=== PATIENT | female | born 1950 | race Caucasian/White ===

== ENCOUNTER 2018-12-12 13:54 | Observation (INO) | payer MEDICARE, OTHER ==
[~2018-12-12] VITALS: Ht 167.6 cm; Wt 81.6 kg
[2018-12-12] MEDS ORDERED: SODIUM CHLORIDE 0.9% 1000ML 1,000 ML IV STA (14:14)
--- NOTE | 2018-12-12 14:45 | NUR ---
Dr. Marin and Regional Director Of Admissions at bedside for rosenberg insertion of the j peg site. Addendum: 12/12/18 at 1735 by KARYE Attempt unsuccessful.
[2018-12-12] MEDS ORDERED: LIDOCAINE HCL 2% JELLY 5 ML TUBE ONE (14:54)
--- NOTE | 2018-12-12 15:16 | NUR ---
Respiratory at bedside.
[2018-12-12] MEDS ORDERED: IPRAT-ALBUT 0.5-3 ML INH (15:34)
[2018-12-12] MEDS ORDERED: ENULOSE10 GM/15 M JT (15:34)
[2018-12-12] MEDS ORDERED: LIOTHYRONINE SO5 MCG JT (15:34)
[2018-12-12] MEDS ORDERED: BRIMONIDINE TART5 ML OP (15:34)
[2018-12-12] MEDS ORDERED: KLONOPIN1 MG JT (15:34)
[2018-12-12] MEDS ORDERED: ZOFRAN4 MG/5 ML JT (15:34)
[2018-12-12] MEDS ORDERED: BACLOFEN10 MG JT (15:34)
[2018-12-12] MEDS ORDERED: ZINC OXIDE56.7 GM TOP (15:34)
[2018-12-12] MEDS ORDERED: LEXAPRO10 MG JT (15:34)
[2018-12-12] MEDS ORDERED: SYNTHROID125 MCG JT (15:34)
[2018-12-12] MEDS ORDERED: FUROSEMIDE40 MG JT (15:34)
[2018-12-12] MEDS ORDERED: ACIDOPHILUS1 EAC4 JT (15:34)
[2018-12-12] MEDS ORDERED: MEGESTROL400 MG/10 JT (15:34)
[2018-12-12] MEDS ORDERED: LANTUS 3ML100 UNITS/ SC (15:34)
[2018-12-12] MEDS ORDERED: BUPROPION HCL100 MG JT (15:34)
[2018-12-12] MEDS ORDERED: GUAIFENESI100 MG/5 M JT (15:34)
[2018-12-12] MEDS ORDERED: GABAPENTIN100 MG JT (15:34)
[2018-12-12] MEDS ORDERED: ACETAMINOPHEN325 M1 JT (15:34)
[2018-12-12] MEDS ORDERED: LATANOPROST2.5 ML OP (15:34)
[2018-12-12] MEDS ORDERED: MIRALAX17 GM JT (15:34)
[2018-12-12] MEDS ORDERED: HUMALOG100 UNIT/3 SQ (15:34)
[2018-12-12] MEDS ORDERED: COLACE100 MG/10 JT (15:34)
[2018-12-12] MEDS ORDERED: NEPHRO-VITE TABL1 EA JT (15:34)
[2018-12-12] MEDS ORDERED: THIAMINE HCL JT (15:34)
[2018-12-12] MEDS ORDERED: FAMOTIDINE20 MG JT (15:34)
[2018-12-12] MEDS ORDERED: LOPERAMIDE1 MG/5 ML JT (15:34)
[2018-12-12] MEDS ORDERED: ZOFRAN4 MG PO (15:34)
[2018-12-12] MEDS ORDERED: SEROQUEL100 MG JT (15:34)
[2018-12-12] MEDS ORDERED: NORCO 10-325 T1 EACH JT (15:34)
[2018-12-12] MEDS ORDERED: EFFER-K 20 MEQ20 MEQ JT (15:34)
[2018-12-12] MEDS ORDERED: ACETYLCYST100 MG/1 M INH (15:34)
[2018-12-12] MEDS ORDERED: POLYETHYLENE GL17 GM JT (15:34)
--- NOTE | 2018-12-12 15:37 | NUR ---
Pt is noted to be resting in bed with eyes closed at this time.
--- OUTSIDE RECORDS SUMMARY | 2018-12-12 15:46 | XMS REPORT | CCD ---
Author Author Auto Generated Organization [facility] Address Unknown Phone Unavailable Care Team Providers Care Release Engineer Name Role Phone Iveth Villalobos CP Allergies, Adverse Reactions, Alerts Substance Reaction Status sulfa drugs Active Problem List Condition Effective Dates Status Diabetes mellitus Active Hypertension Active Irritable bowel syndrome Active Medications Medication Instructions Start Date End Date Status Lyrica Substitution Allowed 06/29/2013 Ordered amLODipine Substitution Allowed 06/29/2013 Ordered normal saline 0.9% 1,000 mL, Rate: 1000 ml/hr, Infuse 06/29/2013 06/29/2013 Completed IV 1,000 mL over: 1 hr, Route: IV, Dosing Weight 70.455 kg, Total Volume: 1,000, Start date: 06/29/13 15:20:00, Duration: 1 doses or times, Stop date: 06/29/13 16:19:00 Alphagan P 0.1% Substitute Allowed 06/29/2013 Ordered ophthalmic solution pantoprazole Substitution Allowed 06/29/2013 Ordered metFORmin Substitution Allowed 06/29/2013 Ordered Januvia Substitution Allowed 06/29/2013 Ordered Crestor Substitution Allowed 06/29/2013 Ordered losartan Substitution Allowed 06/29/2013 Ordered levothyroxine Substitution Allowed 06/29/2013 Ordered hydrochlorothiazide Substitution Allowed 06/29/2013 Ordered glimepiride Substitution Allowed 06/29/2013 Ordered Vital Signs Most recent to oldest [Reference Range]: 1 2 3 Height 149.86 cm (06/29/2013 12:06:00) Temperature Oral [96.4-99.1 DegF] 97.1 DegF (06/29/2013 18:52:00) 96.5 DegF (06/29/2013 12:06:00) Systolic Blood Pressure [90-140 mmHg] 151 mmHg *HI* (06/29/2013 18:52:00) 161 mmHg *HI* (06/29/2013 16:16:00) 148 mmHg *HI* (06/29/2013 12:06:00) Diastolic Blood Pressure [60-90 mmHg] 86 mmHg (06/29/2013 18:52:00) 90 mmHg (06/29/2013 16:16:00) 68 mmHg (06/29/2013 12:06:00) Respiratory Rate [14-20 BRMIN] 19 BRMIN (06/29/2013 18:52:00) 18 BRMIN (06/29/2013 16:16:00) 20 BRMIN (06/29/2013 12:06:00) Peripheral Pulse Rate [60-100 bpm] 84 bpm (06/29/2013 18:52:00) 84 bpm (06/29/2013 16:16:00) 65 bpm (06/29/2013 12:06:00) Weight 70.455 kg (06/29/2013 12:06:00) Results BEDSIDE GLUCOSE TESTING Most recent to oldest [Reference Range]: 1 Gluc POC Lifscn [70-99 mg/dL] 122 mg/dL 1 *HI* (06/29/2013 11:58:00) 1Interpretive Data: Upper Reportable Limit: 200 mg/dL. URINALYSIS Most recent to oldest [Reference Range]: 1 UA Turbidity [Clear] Slight *ABN* (06/29/2013 17:01:07) UA Color [Yellow] Dark Yellow *NA* (06/29/2013 17:01:07) UA pH [5.0-8.0] 5.5 (06/29/2013 17:01:07) UA Spec Grav [<=1.030] 1.016 (06/29/2013 17:01:07) UA Glucose [Negative mg/dL] Negative mg/dL *NA* (06/29/2013 17:01:07) UA Blood [Negative] Negative (06/29/2013 17:01:07) UA Ketones [Negative mg/dL] Negative mg/dL *NA* (06/29/2013 17:01:07) UA Protein [Negative mg/dL] 20 mg/dL *ABN* (06/29/2013 17:01:07) UA Urobilinogen [0.1-1.0 mg/dL] <=1.0 mg/dL *NA* (06/29/2013 17:01:07) UA Bili [Negative] Negative *NA* (06/29/2013 17:01:07) UA Leuk Est [Negative] Negative (06/29/2013 17:01:07) UA Nitrite [Negative] Negative (06/29/2013 17:01:07) UA WBC [0-5 /HPF] 1 /HPF (06/29/2013 17:01:07) UA Bacteria [None Seen /HPF] Few /HPF *NA* (06/29/2013 17:01:07) UA Sq Epi [Few /LPF] Many /LPF *ABN* (06/29/2013 17:01:07) UA Hyal Cast [0-2 /LPF] 4 /LPF *HI* (06/29/2013 17:01:07) UA Amorph Promise [None Seen /HPF] Occasional /HPF *NA* (06/29/2013 17:01:07) UA Mucus [None Seen /LPF] Few /LPF *NA* (06/29/2013 17:01:07) CHEMISTRY Most recent to oldest [Reference Range]: 1 Sodium Lvl [135-145 mEq/L] 141 mEq/L (06/29/2013 14:10:00) Potassium Lvl [3.5-5.1 mEq/L] 3.4 mEq/L *LOW* (06/29/2013 14:10:00) Chloride Lvl [95-109 mEq/L] 97 mEq/L (06/29/2013 14:10:00) CO2 [24-32 mEq/L] 31 mEq/L (06/29/2013 14:10:00) AGAP [10.0-20.0 mEq/L] 16.4 mEq/L (06/29/2013 14:10:00) Creatinine Lvl [0.5-1.4 mg/dL] 1.0 mg/dL (06/29/2013 14:10:00) eGFR 60 mL/min/1.73m2 2 *NA* (06/29/2013 14:10:00) BUN [7-22 mg/dL] 19 mg/dL (06/29/2013 14:10:00) B/C Ratio [6-25] 19 (06/29/2013 14:10:00) Glucose Lvl [70-99 mg/dL] 113 mg/dL 3 *HI* (06/29/2013) Total Protein [6.4-8.4 g/dL] 7.7 g/dL (06/29/2013) Albumin Lvl [3.5-5.0 g/dL] 4.1 g/dL (06/29/2013) Globulin [2.0-4.0 g/dL] 3.6 g/dL (06/29/2013) A/G Ratio [0.7-1.6] 1.1 (06/29/2013) Calcium Lvl [8.5-10.5 mg/dL] 10.2 mg/dL (06/29/2013) ALT [0-65 unit/L] 19 unit/L (06/29/2013) AST [0-37 unit/L] 13 unit/L (06/29/2013) Alk Phos [39-136 unit/L] 76 unit/L (06/29/2013) Bili Total [0.2-1.3 mg/dL] 0.5 mg/dL (06/29/2013) Total CK [12-191 unit/L] 65 unit/L (06/29/2013) CK MB [0.5-3.6 ng/mL] 0.5 ng/mL (06/29/2013) CK MB Index [0.0-2.5] 0.8 (06/29/2013) Troponin-I [0.00-0.40 ng/mL] <0.02 ng/mL (06/29/2013) 2Result Comment: The eGFR is calculated using the CKD-EPI formula. In most young, healthy individuals the eGFR will be >90 mL/min/1.73m2. The eGFR declines with age. An eGFR of 60-89 may be normal in some populations, particularly the elderly, for whom the CKD-EPI formula has not been extensively validated. Use of the eGFR is not recommended in the following populations: Individuals with unstable creatinine concentrations, including patients and those with serious co-morbid conditions. Patients with extremes in muscle mass or diet. The data above are obtained from the National Kid[employer] Disease Education Program ( NKDEP) which additionally recommends that when the eGFR is used in patients with extremes of body mass index for purposes of drug dosing, the eGFR should be mul tiplied by the estimated BMI. 3Interpretive Data: Adult reference range values reflect the clinical guidelines of the [place] [employer]. HEMATOLOGY Most recent to oldest [Reference Range]: 1 WBC [3.7-10.4 K/CMM] 13.2 K/CMM *HI* (06/29/2013) RBC [4.20-5.40 M/CMM] 4.71 M/CMM (06/29/2013) Hgb [12.0-16.0 g/dL] 14.2 g/dL (06/29/2013) Hct [36.0-48.0 %] 42.6 % (06/29/2013) MCV [81.0-99.0 fL] 90.4 fL (06/29/2013) MCH [27.0-31.0 pg] 30.1 pg (06/29/2013) MCHC [32.0-36.0 g/dL] 33.3 g/dL (06/29/2013) RDW [11.5-14.5 %] 14.2 % (06/29/2013) Platelet [133-450 K/CMM] 273 K/CMM (06/29/2013) MPV [7.4-10.4 fL] 9.8 fL (06/29/2013) Segs [45.0-75.0 %] 83.6 % *HI* (06/29/2013) Lymphocytes [20.0-40.0 %] 10.1 % *LOW* (06/29/2013) Monocytes [2.0-12.0 %] 5.8 % (06/29/2013 14:10:00) Eosinophils [0.0-4.0 %] 0.3 % (06/29/2013:10:) Basophils [0.0-1.0 %] 0.2 % (06/29/2013:) Segs-Bands # [1.5-8.1 K/CMM] 11.0 K/CMM *HI* (06/29/201310:) Lymphocytes # [1.0-5.5 K/CMM] 1.3 K/CMM (06/29/2013:10:) Monocytes # [0.0-0.8 K/CMM] 0.8 K/CMM (06/29/201310:) Eosinophils # [0.0-0.5 K/CMM] 0.0 K/CMM (06/29/201310:) Basophils # [0.0-0.2 K/CMM] 0.0 K/CMM (06/29/2013:10:) PT [12.0-14.7 seconds] 12.2 seconds (06/29/2013::) INR [0.85-1.17] 0.91 4 (06/29/2013::) PTT [22.9-35.8 seconds] 30.3 seconds 5 (06/29/2013::) 4Interpretive Data: RECOMMENDED RANGES FOR PROTIME INR: 2.0-3.0 for most medical and surgical thromboembolic states. 2.5-3.5 for artificial heart valves and recurrent embolism. INR SHOULD BE USED ONLY FOR PATIENTS ON STABLE ANTICOAGULANT THERAPY. 5Interpretive Data: Heparin Therapeutic Range: 57 - 92 Seconds Procedures Procedures Date Related Diagnosis Abdominal hysterectomy Cholecystectomy
--- OUTSIDE RECORDS SUMMARY | 2018-12-12 15:46 | XMS REPORT | Summary of Care ---
Author Author [facility] Organization [facility] Address Unknown Phone Unavailable Encounter JESUS Driscoll(ANTHONY) [id number] Date(s): 03/10/16 - 03/12/16 [facility] [address] [employer] provided by [employer] [place] [facility] [place] [address]- Discharge Disposition: Home Attending Physician: Megha Daniel MD Admitting Physician: Megha Daniel MD Vital Signs 1 2 3 Most recent to oldest [Reference Range]: 152.4 cm (03/10/16 10:43 PM) Height 98.8 DegF (03/12/16 4:00 AM) Temperature Oral [96.4-99.1 DegF] 135/62 mmHg (03/12/16 11:00 AM) 146/63 mmHg *HI* (03/12/16 10:00 AM) 133/60 mmHg (03/12/16 9:00 AM) Blood Pressure [90-140/60-90 mmHg] 20 BRMIN (03/12/16 11:00 AM) 20 BRMIN (03/12/16 10:00 AM) 19 BRMIN (03/12/16 9:00 AM) Respiratory Rate [14-20 BRMIN] 75.909 kg (03/10/16 10:43 PM) Weight 32.68 m2 (03/10/16 10:43 PM) Body Mass Index Problem List Condition Effective Dates Status Health Status Informant Diabetes Active mellitus(Confirmed) Hypertension(Confirm Active ed) Hyperthyroidism(Conf Resolved irmed) Irritable bowel Active syndrome(Confirmed) Allergies, Adverse Reactions, Alerts Substance Reaction Severity Status sulfa drugs Active Medications acyclovir + Sodium Chloride 0.9% IV 100 mL 460 mg, Route: IVPB, ABXQ8H, Dosing Weight 75.909, kg, Priority: NOW, Start date : 03/11/16 11:08:00 CDT, Duration: 30 day, Stop date: 04/10/16 3:08:00 CDT, CrCl > 50 mL / min Notes: (Same as: Zovirax) MEDICATION WASTE Product Size: 500 mgProduct Wasted: ___ mg Start Date: 03/11/16 Stop Date: 03/12/16 Status: Discontinued acyclovir + Sodium Chloride 0.9% IV 100 mL 460 mg, Route: IVPB, ABXQ8H, Dosing Weight 75.909, kg, Priority: NOW, Start date : 03/11/16 9:37:00 CDT, Duration: 30 day, Stop date: 04/10/16 1:37:00 CDT, CrCl > 50 mL / min Notes: (Same as: Zovirax) MEDICATION WASTE Product Size: 500 mgProduct Wasted: ___ mg Start Date: 03/11/16 Stop Date: 03/11/16 Status: Deleted amLODIPine 10 mg, 1 tab, Route: PO, Drug form: TAB, Daily, Dosing Weight 75.909, kg, Start date: 03/12/16 9:00:00 CDT, Duration: 30 day, Stop date: 04/10/16 9:00:00 CDT Notes: (Same as: Norvasc) Start Date: 03/12/16 Stop Date: 03/12/16 Status: Discontinued amLODIPine 10 mg oral tablet 10 mg=1 tab, PO, Daily, 0 Refill(s) Start Date: 03/12/16 Status: Ordered aspirin 300 mg, 1 supp, Route: DC, Drug form: SUPP, Daily, Dosing Weight 75.909, kg, PRN For Temp > 100.4 F, Start date: 03/11/16 5:25:00 CDT, Duration: 30 day, Stop date: 04/10/16 5:24:00 CDT Notes: Refrigerate. Start Date: 03/11/16 Stop Date: 03/12/16 Status: Discontinued aspirin 325 mg tablet, enteric coated 325 mg, 1 tab, Route: PO, Drug form: ECTAB, Daily, Dosing Weight 75.909, kg, Sta rt date: 03/11/16 0:00:00 CDT, Duration: 30 day, Stop date: 04/09/16 9:00:00 CDT Notes: (Do Not Crush) Do not crush or chew. Start Date: 03/11/16 Stop Date: 03/12/16 Status: Discontinued Ativan 0.5 mg, 0.25 mL, Route: IV, Drug form: INJ, ONCE, Dosing Weight 75.909, kg, PRN as needed for anxiety, Start date: 03/11/16 14:23:00 CDT, Stop date: 04/10/16 14 :22:00 CDT Notes: (Same as: Ativan) Start Date: 03/11/16 Stop Date: 03/11/16 Status: Completed Ativan 1 mg, Route: IVP, Drug form: INJ, ONCE, Dosing Weight 75.909, kg, PRN Procedure, Start date: 03/11/16 2:30:00 CDT Start Date: 03/11/16 Stop Date: 03/11/16 Status: Completed Ativan 2 mg, Route: IVP, Drug form: INJ, ONCE, Dosing Weight 75.909, kg, PRN Procedure, Start date: 03/11/16 2:29:00 CDT Start Date: 03/11/16 Stop Date: 03/11/16 Status: Discontinued atorvastatin 80 mg, 1 tab, Route: PO, Drug form: TAB, Bedtime, Dosing Weight 75.909, kg, Star t date: 03/11/16 21:00:00 CDT, Duration: 30 day, Stop date: 04/09/16 21:00:00 CD T Notes: Same as Lipitor Start Date: 03/11/16 Stop Date: 03/12/16 Status: Discontinued atorvastatin 80 mg oral tablet 80 mg=1 tab, PO, Bedtime, 0 Refill(s) Start Date: 03/12/16 Status: Ordered buPROPion 100 mg oral tablet 100 mg=1 tab, PO, Daily Start Date: 03/12/16 Status: Ordered Cosopt ophthalmic solution 1 drp, Route: BOTH EYES, BID, Drug form: SOLN, Start date: 03/12/16 9:00:00 CDT, Stop date: 04/10/16 17:00:00 CDT Notes: (Same as: Cosopt) Start Date: 03/12/16 Stop Date: 03/12/16 Status: Discontinued escitalopram 20 mg oral tablet 20 mg=1 tab, PO, Daily Start Date: 03/12/16 Status: Ordered gabapentin 300 mg oral capsule 300 mg, 1 cap, Route: PO, Drug form: CAP, Q12H, Dosing Weight 75.909, kg, (CrCl 30 - 59 ml/min), Start date: 03/12/16 9:00:00 CDT, Duration: 30 day, Stop date: 04/10/16 21:00:00 CDT Notes: (Same as: Neurontin) Start Date: 03/12/16 Stop Date: 03/12/16 Status: Discontinued gabapentin 300 mg oral capsule See Instructions, 1 cap po QAM and 3 cap po QPM, 0 Refill(s) Start Date: 03/12/16 Status: Ordered glipiZIDE 5 mg oral tablet 5 mg=1 tab, PO, BID, 0 Refill(s) Start Date: 03/12/16 Status: Ordered heparin 5,000 unit, 1 mL, Route: SUB-Q, Drug form: INJ, Q8H, Dosing Weight 75.909, kg, ( For patients weighing < 100 kg)., Start date: 03/11/16 0:00:00 CDT, Duration: 30 day, Stop date: 04/09/16 16:00:00 CDT Notes: porcine heparin Start Date: 03/11/16 Stop Date: 03/12/16 Status: Discontinued hydrALAZINE 10 mg, 0.5 mL, Route: IVP, Drug form: INJ, Q6H, Dosing Weight 75.909, kg, PRN Hy pertension, Start date: 03/11/16 16:02:00 CDT, Duration: 30 day, Stop date: 03/23 16:01:00 CDT Notes: (Same as: Apresoline)Push over 5 minutes Start Date: 03/11/16 Stop Date: 03/12/16 Status: Discontinued labetalol 10 mg, 2 mL, Route: IVP, Drug form: INJ, Q10Min, Dosing Weight 75.909, kg, PRN H ypertension, For SBP > 220 mmHg and/or DBP > 120 mmHg., Start date: 03/10/16 23:30:00 CDT, Duration: 30 day, Stop date: 04/09/16 23:29:00 CDT Start Date: 03/10/16 Stop Date: 03/12/16 Status: Discontinued levothyroxine 88 microgram, 1 tab, Route: PO, Drug form: TAB, Q630AM, Dosing Weight 75.909, kg , Start date: 03/13/16 6:30:00 CDT, Duration: 30 day, Stop date: 04/11/16 6:30:0 0 CDT Notes: Take 1 hour before or 2 hours after meal; Enteral feeds may interefere wi th the absorption of this medication. (Same as:Synthroid) Start Date: 03/13/16 Stop Date: 03/12/16 Status: Canceled levothyroxine 88 mcg (0.088 mg) oral tablet 88 microgram=1 tab, PO, Q630AM, 0 Refill(s) Start Date: 03/12/16 Status: Ordered lisinopril 20 mg, Route: PO, Drug form: TAB, Daily, Dosing Weight 75.909, kg, Start date: 0 03/12/16 9:00:00 CDT, Stop date: 04/10/16 14:00:00 CDT Start Date: 03/12/16 Stop Date: 03/11/16 Status: Canceled losartan 100 mg, 2 tab, Route: PO, Drug form: TAB, Daily, Dosing Weight 75.909, kg, Start date: 03/11/16 16:00:00 CDT, Duration: 30 day, Stop date: 04/10/16 9:00:00 CDT Notes: (Same as: Mk) Start Date: 03/11/16 Stop Date: 03/12/16 Status: Discontinued losartan 50 mg oral tablet 100 mg=2 tab, PO, Daily, 0 Refill(s) Start Date: 03/12/16 Status: Ordered Lumigan 0.01% ophthalmic solution 1 drp, BOTH EYES, Bedtime Start Date: 03/12/16 Status: Ordered metFORMIN 500 mg oral tablet 500 mg=1 tab, PO, BID-Meals, # 30 tab, 0 Refill(s) Start Date: 03/12/16 Status: Ordered normal saline 0.9% IV 1000 mL 1,000 mL, Rate: 125 ml/hr, Infuse over: 8 hr, Route: IV, Dosing Weight 75.909 kg , Total Volume: 1,000, Start date: 03/11/16 7:18:00 CDT, Duration: 30 day, Stop date: 04/10/16 7:17:00 CDT Start Date: 03/11/16 Stop Date: 03/11/16 Status: Deleted Omnipaque 350mg/ml 60 mL, Route: IVP, Drug Form: SOLN, Dosing Weight 75.909, kg, ONCALL, STAT, Star t date: 03/11/16 7:44:00 CDT, Duration: 1 doses or times, Dose=2.2ml/kg, Max do ip=[id number] -- "To be infused by Radiology Staff ONLY" Start Date: 03/11/16 Stop Date: 03/11/16 Status: Completed Saline Flush 0.9% 10 ml, Route: IVP, Drug Form: INJ, Dosing Weight 75.909, kg, PRN, PRN Line Flush , Start date: 03/10/16 23:30:00 CDT, Duration: 30 day, Stop date: 04/09/16 23:29 :00 CDT Notes: Same as: BD Posiflush Sterile Start Date: 03/10/16 Stop Date: 03/12/16 Status: Discontinued Saline Flush 0.9% 10 ml, Route: IVP, Drug Form: INJ, Dosing Weight 75.909, kg, Q12H, Start date: 0 03/11/16 9:00:00 CDT, Duration: 30 day, Stop date: 04/09/16 21:00:00 CDT Notes: Same as: BD Posiflush Sterile Start Date: 03/11/16 Stop Date: 03/12/16 Status: Discontinued SEROquel 25 mg, 1 tab, Route: PO, Drug form: TAB, ONCE, Dosing Weight 75.909, kg, PRN Paola tation, Start date: 03/12/16 0:39:00 CDT, Stop date: 03/12/16 0:39:00 CDT Notes: (Same as: SEROquel) Start Date: 03/12/16 Stop Date: 03/12/16 Status: Completed Sodium Chloride 0.9% IV 1,000 mL 1,000 mL, Rate: 75 ml/hr, Infuse over: 13.3 hr, Route: IV, Dosing Weight 75.909 kg, Total Volume: 1,000, Start date: 03/10/16 23:30:00 CDT, Duration: 30 day, St op date: 04/09/16 23:29:00 CDT Start Date: 03/10/16 Stop Date: 03/12/16 Status: Discontinued sucralfate 1 g oral tablet 1 gm=1 tab, PO, QID-Before Meals, 0 Refill(s) Start Date: 03/12/16 Status: Ordered Results ELECTROLYTES 1 2 3 Most recent to oldest [Reference Range]: 140 mEq/L (03/12/16 3:57 AM) 134 mEq/L *LOW* (03/11/16 12:06 AM) Sodium Lvl [135-145 mEq/L] 3.4 mEq/L *LOW* (03/12/16 3:57 AM) 4.0 mEq/L (03/11/16 12:06 AM) Potassium Lvl [3.5-5.1 mEq/L] 103 mEq/L (03/12/16 3:57 AM) 100 mEq/L (03/11/16 12:06 AM) Chloride Lvl [95-109 mEq/L] 26 mEq/L (03/12/16 3:57 AM) 25 mEq/L (03/11/16 12:06 AM) CO2 [24-32 mEq/L] 14.4 mEq/L (03/12/16 3:57 AM) 13.0 mEq/L (03/11/16 12:06 AM) AGAP [10.0-20.0 mEq/L] CHEM PANEL 1 2 3 Most recent to oldest [Reference Range]: 0.67 mg/dL (03/12/16 3:57 AM) 0.81 mg/dL (03/11/16 12:06 AM) 0.81 mg/dL (03/11/16 12:06 AM) Creatinine Lvl [0.50-1.40 mg/dL] 91 mL/min/1.73m2 1 *NA* (03/12/16 3:57 AM) 75 mL/min/1.73m2 2 *NA* (03/11/16 12:06 AM) 75 mL/min/1.73m2 3 *NA* (03/11/16 12:06 AM) eGFR 17 mg/dL (03/12/16 3:57 AM) 20 mg/dL (03/11/16 12:06 AM) BUN [7-22 mg/dL] 25 (03/11/16 12:06 AM) B/C Ratio [6-25] 124 mg/dL *HI* (03/12/16 3:57 AM) 115 mg/dL *HI* (03/11/16 12:06 AM) Glucose Lvl [70-99 mg/dL] 7.3 g/dL (03/11/16 12:06 AM) Total Protein [6.4-8.4 g/dL] 3.8 g/dL (03/11/16 12:06 AM) Albumin Lvl [3.5-5.0 g/dL] 3.5 g/dL (03/11/16 12:06 AM) Globulin [2.0-4.0 g/dL] 1.1 (03/11/16 12:06 AM) A/G Ratio [0.7-1.6] 9.2 mg/dL (03/12/16 3:57 AM) 9.4 mg/dL (03/11/16 12:06 AM) Calcium Lvl [8.5-10.5 mg/dL] 3.2 mg/dL (03/12/16 3:57 AM) Phosphorus [2.5-4.5 mg/dL] 1.8 mg/dL (03/12/16 3:57 AM) Magnesium Lvl [1.8-2.4 mg/dL] 19 unit/L (03/11/16 12:06 AM) ALT [0-65 unit/L] 38 unit/L *HI* (03/11/16 12:06 AM) AST [0-37 unit/L] 78 unit/L (03/11/16 12:06 AM) Alk Phos [39-136 unit/L] 0.9 mg/dL (03/11/16 12:06 AM) Bili Total [0.2-1.3 mg/dL] 0.1 mg/dL (03/11/16 12:06 AM) Bili Direct [0.0-0.3 mg/dL] 1Result Comment: The eGFR is calculated using the [...] be mul tiplied by the estimated BMI. 2Result Comment: The eGFR is calculated using [...] be mul tiplied by the estimated BMI. 3Result Comment: The eGFR is calculated using the [...] be mul tiplied by the estimated BMI. LIPIDS 1 2 3 Most recent to oldest [Reference Range]: 3.30 *LOW* (03/11/16 12:06 AM) CHD Risk [3.90-5.80] 185 mg/dL (03/11/16 12:06 AM) Chol [<=199 mg/dL] 87 mg/dL (03/11/16 12:06 AM) Trig [<=149 mg/dL] 56 mg/dL *LOW* (03/11/16 12:06 AM) HDL [>=61 mg/dL] 112 mg/dL *HI* (03/11/16 12:06 AM) LDL (Calculated) [<=99 mg/dL] 17 *NA* (03/11/16 12:06 AM) VLDL SPECIAL CHEMISTRY 1 2 3 Most recent to oldest [Reference Range]: 6.9 % *HI* (03/11/16 4:53 AM) Hgb A1C [<=5.6 %] PARATHYROID PROFILE 1 2 3 Most recent to oldest [Reference Range]: 1.19 mMol/L (03/12/16 3:57 AM) Ca Ion WB [1.05-1.25 mMol/L] 1.17 mMol/L (03/12/16 3:57 AM) Ca Norm WB [1.05-1.25 mMol/L] DRUG SCREEN 1 2 3 Most recent to oldest [Reference Range]: Negative *NA* (03/11/16 12:06 AM) U Amph Scr [Negative] Negative *NA* (03/11/16 12:06 AM) U Winsome Scr [Negative] Negative *NA* (03/11/16 12:06 AM) U Benzodia Scr [Negative] Negative *NA* (03/11/16 12:06 AM) U Cocaine Scr [Negative] Positive *ABN* (03/11/16 12:06 AM) U Opiate Scr [Negative] Negative *NA* (03/11/16 12:06 AM) U Phencyc Scr [Negative] Negative *NA* (03/11/16 12:06 AM) U Cannab Scr [Negative] See Note (03/11/16 12:06 AM) UDS Note URINE AND STOOL 1 2 3 Most recent to oldest [Reference Range]: Clear (03/11/16 12:06 AM) UA Turbidity [Clear] Yellow *NA* (03/11/16 12:06 AM) UA Color [Yellow] 6.0 (03/11/16 12:06 AM) UA pH [5.0-8.0] 1.019 (03/11/16 12:06 AM) UA Spec Grav [<=1.030] 300 mg/dL *ABN* (03/11/16 12:06 AM) UA Glucose [Negative mg/dL] Moderate *ABN* (03/11/16 12:06 AM) UA Blood [Negative] 20 mg/dL *ABN* (03/11/16 12:06 AM) UA Ketones [Negative mg/dL] 20 mg/dL *ABN* (03/11/16 12:06 AM) UA Protein [Negative mg/dL] <=1.0 mg/dL *NA* (03/11/16 12:06 AM) UA Urobilinogen [0.1-1.0 mg/dL] Negative *NA* (03/11/16 12:06 AM) UA Bili [Negative] Negative (03/11/16 12:06 AM) UA Leuk Est [Negative] Negative (03/11/16 12:06 AM) UA Nitrite [Negative] 1 /HPF (03/11/16 12:06 AM) UA WBC [0-5 /HPF] 4 /HPF *HI* (03/11/16 12:06 AM) UA RBC [0-2 /HPF] Occasional /LPF *NA* (03/11/16 12:06 AM) UA Sq Epi [Few /LPF] 1 /LPF (03/11/16 12:06 AM) UA Hyal Cast [0-2 /LPF] Moderate /LPF *ABN* (03/11/16 12:06 AM) UA Mucus [None Seen /LPF] BODY FLUIDS 1 2 3 Most recent to oldest [Reference Range]: 86 mg/dL *HI* (03/11/16 3:43 PM) Glucose CSF [45-80 mg/dL] 52 mg/dL *HI* (03/11/16 3:43 PM) Protein CSF [15-45 mg/dL] 4 *NA* (03/11/16 3:43 PM) Tube Num CSF Colorless (03/11/16 3:43 PM) Color CSF [Colorless] Clear (03/11/16 3:43 PM) Clarity CSF [Clear] Colorless (03/11/16 3:43 PM) Supernat CSF [Colorless] 1 /mm3 *HI* (03/11/16 3:43 PM) RBC CSF [0-0 /mm3] 1 /mm3 (03/11/16 3:43 PM) WBC CSF [0-5 /mm3] Differential not performed on WBC count of less than 5. *NA* (03/11/16 3:43 PM) Comment CSF IMMUNOLOGY 1 2 3 Most recent to oldest [Reference Range]: 5.4 mg/L *HI* (03/11/16 12:06 AM) CRP [<=2.9 mg/L] HEMATOLOGY 1 2 3 Most recent to oldest [Reference Range]: 10.5 K/CMM *HI* (03/12/16 3:57 AM) 12.8 K/CMM *HI* (03/11/16 12:06 AM) WBC [3.7-10.4 K/CMM] 4.32 M/CMM (03/12/16 3:57 AM) 4.31 M/CMM (03/11/16 12:06 AM) RBC [4.20-5.40 M/CMM] 12.9 g/dL (03/12/16 3:57 AM) 12.7 g/dL (03/11/16 12:06 AM) Hgb [12.0-16.0 g/dL] 38.5 % (03/12/16 3:57 AM) 39.0 % (03/11/16 12:06 AM) Hct [36.0-48.0 %] 89.1 fL (03/12/16 3:57 AM) 90.4 fL (03/11/16 12:06 AM) MCV [80.0-98.0 fL] 29.9 pg (03/12/16 3:57 AM) 29.4 pg (03/11/16 12:06 AM) MCH [27.0-31.0 pg] 33.5 g/dL (03/12/16 3:57 AM) 32.5 g/dL (03/11/16 12:06 AM) MCHC [32.0-36.0 g/dL] 14.3 % (03/12/16 3:57 AM) 14.5 % (03/11/16 12:06 AM) RDW [11.5-14.5 %] 263 K/CMM (03/12/16 3:57 AM) 287 K/CMM (03/11/16 12:06 AM) Platelet [133-450 K/CMM] 9.6 fL (03/12/16 3:57 AM) 10.3 fL (03/11/16 12:06 AM) MPV [7.4-10.4 fL] 75.3 % *HI* (03/12/16 3:57 AM) 76.3 % *HI* (03/11/16 12:06 AM) Segs [45.0-75.0 %] 13.3 % *LOW* (03/12/16 3:57 AM) 11.3 % *LOW* (03/11/16 12:06 AM) Lymphocytes [20.0-40.0 %] 10.1 % (03/12/16 3:57 AM) 11.3 % (03/11/16 12:06 AM) Monocytes [2.0-12.0 %] 0.8 % (03/12/16 3:57 AM) 0.5 % (03/11/16 12:06 AM) Eosinophils [0.0-4.0 %] 0.5 % (03/12/16 3:57 AM) 0.6 % (03/11/16 12:06 AM) Basophils [0.0-1.0 %] 7.9 K/CMM (03/12/16 3:57 AM) 9.8 K/CMM *HI* (03/11/16 12:06 AM) Segs-Bands # [1.5-8.1 K/CMM] 1.4 K/CMM (03/12/16 3:57 AM) 1.5 K/CMM (03/11/16 12:06 AM) Lymphocytes # [1.0-5.5 K/CMM] 1.1 K/CMM *HI* (03/12/16 3:57 AM) 1.5 K/CMM *HI* (03/11/16 12:06 AM) Monocytes # [0.0-0.8 K/CMM] 0.1 K/CMM (03/12/16 3:57 AM) 0.1 K/CMM (03/11/16 12:06 AM) Eosinophils # [0.0-0.5 K/CMM] 0.1 K/CMM (03/12/16 3:57 AM) 0.1 K/CMM (03/11/16 12:06 AM) Basophils # [0.0-0.2 K/CMM] 37 mm/hr *HI* (03/11/16 4:53 AM) Sed Rate [0-20 mm/hr] 22.6 seconds *LOW* (03/11/16 12:06 AM) PTT [22.9-35.8 seconds] MOLECULAR DIAGNOSTIC 1 2 3 Most recent to oldest [Reference Range]: Cerebral Spinal Fluid *NA* (03/11/16 3:43 PM) Source HSV Negative 1 (03/11/16 3:43 PM) HSV 1 by PCR [Negative] Negative 2 (03/11/16 3:43 PM) HSV 2 by PCR [Negative] 1Result Comment: This sample was NON DETECTED or BELOW THE LOWER LIMITS OF DETECTION for HSV 1/2 DNA by real-time PCR using hybridization probe and melting curve analysis. 2Result Comment: This sample was NON DETECTED or BELOW THE LOWER LIMITS OF DETECTION for HSV 1/2 DNA by real-time PCR using hybridization probe and melting curve analysis. VIRAL - SEROLOGY 1 2 3 Most recent to oldest [Reference Range]: Negative (03/11/16 3:43 PM) Enterovirus PCR CSF [Negative] Immunizations No data available for this section Procedures Procedure Date Related Diagnosis Body Site Abdominal hysterectomy Cholecystectomy Laparoscopic adjustable gastric banding Social History Social History Type Response Substance Abuse Use: None. Alcohol Current, Type Wine. Frequency: 1-2 times per month. Previous treatment: None. Smoking Status Never smoker; Previous treatment: None; Exposure to Tobacco Smoke None; Cigarette Smoking Last 365 Days No; Reg Smoking Cessation Counseling No Assessment and Plan Extracted from: Title: Clinical Document Author: Cliff Tavares MD Date: 03/12/16 Subjective: Patient is more awake alerot and following commands. Off restraints calm and with non focalneurological exam. Due to lab problems CSF abnalysis not performed yesterday called lab at 6:30 AM and confirmed CSF specimen is in lab and will run analysis stat. No major overnight events. HPI: Patient is a 65 year old R handed female with a past medical history of DM, hypothyroid, HTN. Here for severe headache. 3 days ago, patient had slurred speech and she was taken to local ED who referred her to the stroke center in [facility]. CTH, MRI and carotid dopplers that were negative per family. Patient was discharged on Plavix. However, patient had elevated blood pressure that was difficult to control then was discharged with a diagnosis of TIA. Last night at 1999 after her discharge patient had a severe headache. gave her some of his clopidegrel and ASA that helped here. Around noon today, her headache got much worse so he took her to the local ER. In the ER, she became extremely agitated and combative. She was given ativan, geodon and morphine. The local ER tried to send her back to [facility] but that hospital was full so she was transfered here for a HLOC. CTH with reportedly L frontal hypodensity. Per , she had ~7 simillar episodes over the past 10 years that were always attributed to hyper glycemia GCS on admission 13 Hospital Course: 03/11: pt encephalopatic with concern of viral encephalitis, LP was performed and pt was startted on acyclovir. opthalmology were consulted to r/o for GCA, recommended against prednisone. 03/12: significant clinical improvement Medications: 03/11/16 11:08 acyclovir + Sodium Chloride 0.9% IV 100 mL 460 mg IVPB ABXQ8H 100 ml/hr 03/11/16 5:24 (Suspended) aspirin (aspirin 325 mg tablet, enteric coated) 325 mg PO Daily 03/11/16 21:00 atorvastatin 80 mg PO Bedtime 03/12/16 9:00 dorzolamide-timolol ophthalmic (Cosopt ophthalmic solution) 1 drp BOTH EYES BID 03/12/16 9:00 gabapentin (gabapentin 300 mg oral capsule) 300 mg PO Q12H 03/11/16 8:06 (Suspended) heparin 5,000 unit SUB-Q Q8H 03/13/16 6:30 levothyroxine 88 microgram PO Q630AM 03/11/16 16:00 losartan 100 mg PO Daily 03/11/16 9:00 sodium chloride (Saline Flush 0.9%) 10 ml IVP Q12H Objective: Vitals: VitalsTmp(F)Tmp(C)[id number] 03/12 07:[id number] 03/12 06:22 99------ 03/12 06:00 125/[id number]------ 03/12 05:30 141/[id number]------ 03/12 05:00 [id number]------ 24 Hr Tmax: 98.9F (37.17c) at 03/11 12:3524 Hr Tmin: 97.4F (36.33c) at 03/12 07:04 36 Hr Tmax: 100.1F (37.83c) at 03/11 03:5436 Hr Tmin: 97.3F (36.28c) at 03/10 21:58 Vital Signs are the last 5 in the past 48 hours. Weights are the last 5 in 60 days, plus initial. DateWt(kg)Wt(lb)Ht(cm)Ht(in)MethodBMIBSA 03/10 (initial) 75.91 167.00Estimated 32.71.79 02/20152.40 60.00Stated Most Recent Scores: 03/12/16Pain Intensity NRS (0-10)0 Lines, Tubes, and Drains: 03/11/2016 07:00 Peripheral Lines: Wrist Left 20 gauge Over the needle catheter Physical Exam: HEAD - Normocephalic and atraumatic LUNGS - Clear to auscultation, no rales or rhonchi CVS - Rate rhythm regular, no murmur, equal pulses bilaterally ABDOMEN - Soft, non tender, with normal bowel sounds. 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 Motor: -Tone: Normal -Power: 5/5 in all groups of muscles in all four limbs -Reflexes: 2+ symmetrical bilaterally -Plantar: Flexor -Drift: absent Sensory: -Intact light touch and pin prick sensation -Intact vibration and position sense Cerebellar signs: Intact FNT, Rombergs negative Gait: not performed for safety Labs: [facility] BUN: 17 03/12/16 Hct: 38.5 03/12/16 Hgb: 12.9 03/12/16 MCH: 29.9 03/12/16 MCHC: 33.5 03/12/16 MCV: 89.1 03/12/16 MPV: 9.6 03/12/16 Platelet: 263 03/12/16 RBC: 4.32 03/12/16 RDW: 14.3 03/12/16 WBC: 10.5 High 03/12/16 CHD Risk: 3.30 Low 03/11/16 Chol: 185 03/11/16 HDL: 56 Low 03/11/16 LDL (Calculated): 112 High 03/11/16 Tri 03/11/16 VLDL: 17 03/11/16 Stroke Work up : CT Head w/o contrast: No acute intracranial abnormality. Chronic microangiopathic changes. CTA/MRA/Carotid US: Atherosclerotic plaque at the left > right carotid bifurcatons. Stenosis of the proximal left ICA by 50-60-%. MRI Brain w/o contrast: 1. No recent infarct or hemorrhage. 2. Increase in the size and number of T2 signal abnormalities in the white matter indicative of progression of microvascular ischemic change, now moderately advanced for age. 3. Partially empty sella. 2D ECHO w bubble study 1) Normal biventricular size and systolic function. LVEF 60-65% 2) Impaired LV relaxation. 3) Saline contrast studies are negative for intracardiac shunting. 4) No significant valvular abnormalities. 5) RV systolic pressure estimated to be normal. 6) No pericardial effusion. 7) Normal aortic root dimensions. 8) No prior study available. EKG:NSR LDL and HbA1c: 112/6.9 Rehab Services: oOT - pending oPT - pending oSpeech Therapy - pending Assessment: Diagnosis: Acute encephalopathy 2/2Possible viral encephalitis vs seizure Etiology: possible HSV Plan: # Possible HSV encephalitis with mollaret variant Follow on CSF analysis, if HSV PCR neg might consider repeat LP in 2 days with repeat HSV PCR for confirmation stop acyclovir as prelim csf results normal. Other differential: GCA: in the setting of temporal ROMANO and mildly elevatged ESR and visual diffuclties on exam 5-21 opthalmology was consulted with minimal concern and with improving exam today highly unlikely Seizure: EEG ordered follow up on result # Secondary Prevention of Stroke: - Antiplatelet agent: ASA 81 mg po daily - Statin: Lipitor 80 mg po daily - Bp control: 110-140 - Hyperglycemia control: Regular Insulin Sliding Scale # Other Medical Issues: #HTN: well controlled on losartan and amlodipin will monitor and adjust #DMII A1c 6.9 pt on home metformin and glyburide SSI as inpatient #hypothyroidism On levothyroxin 88 mcg # Prophylaxis: - DVT: Heparin sq, SARAH, SCD - GI: Not indicated - Bowel: Colace and Senna # Code Status: Full code # Disposition Ddischarge home with neurology follow upfor evalaution of recurrent epsiodes of acute encephalopathy. Addendum Neurology Attending: by I have personally evaluated the patient. I have reviewed the resident 's note detailed María above. I agree with the resident's findings, assessment and plan as outlined in the note , Megha as detailed below. The LP came back with 1 WBC. She has no symptoms this morning, no Marcia CLEARY headache, and she is now completely at baseline. I think these could be seizures, and on will need assessment as outpatient as she has had these spells for over 10 years. She has 03/12/2016 no problem with vision today can read, no feild cuts and undilated fundiscopic exam looks 16:15 OK. MRI negative. No need for acyclovir with negative LP. Treat hyperglycemia and high blood pressure. Discharge with close PCP follow up and epilepsy follow up. No evidence of GCA but needs optholmology f/u (for diabetes) and dilated eye exam. Megha Daniel [phone] Extracted from: Title: Stroke H&P Author: Clarice Garsia MD Date: 03/10/16 STROKE TEAM / NEUROLOGY - HISTORY AND PHYSICAL CC: severe headache HISTORY OF PRESENT ILLNESS: Patient is a 65 year old R handed female with a past medical history of DM, hypothyroid, HTN. Here for severe headache. 3 days ago, patient had slurred speech and she was taken to local ED who referred her to the stroke center in [facility]. CTH, MRI and carotid dopplers that were negative per family. Patient was discharged on Plavix. However, patient had elevated blood pressure that was difficult to control then was discharged with a diagnosis of TIA. Last night at 1999 after her discharge patient had a severe headache. gave her some of his clopidegrel and ASA that helped here. Around noon today, her headache got much worse so he took her to the local ER. In the ER, she became extremely agitated and combative. She was given ativan, geodon and morphine. The local ER tried to send her back to [facility] but that hospital was full so she was transfered here for a HLOC. CTH with reportedly L frontal hypodensity. Per , she had ~7 simillar episodes over the past 10 years that were always attributed to hyper glycemia GCS on admission 13 REVIEW OF SYSTEMS: GEN: no fever, chills, weight loss, fatigue EYES: no blurred vision, double vision CARDIO: no chest pain, palpitations PULM: no shortness of breath, cough GI: no nausea, vomiting, diarrhea, no abd pain : no frequency, dysuria, hematuria NEURO: see HPI SKIN: no rash or lesion MSK: no pain, swelling, redness, heat in muscles, no limited ROM, weakness, or atrophy, no cramps LYMPH/IMMUNO: No lymph node enlargement/tenderness, no heat/cold intolerance PAST MEDICAL HISTORY: DM, hypothyroid, HTN, KATHI PAST SURGICAL HISTORY: Cholecystectomy Abdominal hysterectomy FAMILY MEDICAL HISTORY: mother had ischemic strokes SOCIAL HISTORY: denies smoking, alcohol or drug use MEDICATIONS: amLODipine 10 mg daily Sucralfate 1g five times a day Plavix 75 mg daily Bupropion 100 BID brimonidine ophthalmic (Alphagan P 0.1% ophthalmic solution) escitalopram 20mg daily glipizide 5mg daily Levothyroxine 88ug daily losartan 100 daily ALLERGIES: Sulfa drugs PHYSICAL EXAM: Vital Signs: Vitals and Temp: VitalsTmp(F)[id number] 03/10 22:00----[id number] 2.0L/m 03/10 21:5897.3 03/10 21:30----[id number] 3.0L/m 24 Hr Tmax: 97.3F (36.28c) at 03/10 21:58Vital Signs are the last 5 in the past 48 hours. Exam is limited by sedatives and antipsychotics given at OSH. no focal deficits per family and OSH documents. GENERAL: somnolent, sedated, NAD. HEENT: - Normocephalic and atraumatic; MMM LUNGS - Clear to auscultation bilaterally with no wheezes CV - S1S2 RRR, no m/r/g, equal pulses bilaterally. ABDOMEN - Soft, nontender, nondistended with normoactive BS NEURO: Mental status:sleepy, arousable but cannot maintain arousal. Cranial nerves: Pupils equal, round, and reactive. 3 mm. Visual cat intact to confrontation. Eye movements full without nystagmus. Face symmetric at rest and with activation. Facial sensation is intact to light touch. Motor: moves all extremities to command. No drift. Difficult to do formal strength testing due to sedation Sensation: Intact to light touch, pinprick, temperature and vibration throughout. Coordination: No dysmetria on finger-nose Gait: not tested NIH Stroke Scale (NIHSS) 1 1a. Level of Consciousness; 0-alert 1-drowsy 2-stupor 3-comatose 1 1b. LOC Questions month and age; 0-both 1-one 2-neither 0 1c. LOC Commands open/close eyes, safety analyst/release non-paretic hand; 0-both 1-one 2-neither 0 2. Best Gaze; 0-nl 1-partial 2-forced gaze 0 3. Visual Cat; 0-No visual loss. 1-Partial hemianopia 2-Complete 3- Bilateral 0 4. Facial Palsy; 0-none 1-minor 2-partial 3-complete 0 5. Motor - R arm; 0-No drift 1-Drift 2-Some antigravity 3-No antigravity 4-No movement 0 6. Motor - R leg; 0-No drift 1-Drift 2-Some antigravity 3-No antigravity 4-No movement 0 7. Motor - L arm; 0-No drift 1-Drift 2-Some antigravity 3-No antigravity 4-No movement 0 8. Motor - L leg; 0-No drift 1-Drift 2-Some antigravity 3-No antigravity 4-No movement 0 9. Limb Ataxia; 0 absent 1 - 1limb 2 - 2 limbs 0 10. Sensory; 0-nl 1-partial loss 2-dense loss 0 11. Best Language; 0-nl 1-mild/mod 2-severe 3-mute 0 12. Dysarthria; 0-nl 1-mild/mod 2-severe x-untestable 0 13. Extinction and Inattention (formerly Neglect); 0-none 1-partial 2-complete TOTAL SCORE 2 SIGNIFICANT LABS: 24hr Labs 03/10 2150 Glucose [id number] H DIAGNOSTIC TESTS: CT Head: OSH CTH reviewed. Could not appreciate L frontal hypodensity reported by OSH per checkout. Will re-evaluate once loaded into our system CTA/Perfusion:pending MRI: pending EKG: pending ASSESSMENT: Patient is a 65 year old R handed female with a past medical history of DM, hypothyroid, HTN. Here for severe headache. Reported L frontal hypodensity on head CT. Exam limited by sedation and anti psychotics but otherwise non-focal PLAN No thrombolysis Admit to stroke unit. ASA 325mg daily has been ordered and will be given before the end of hospital day 2. Atorvastatin 80mg daily has been ordered HOB flat Telemetry EKG if not done in ED MRI brain to evaluate for infarct. CTA head/neck to evaluate vasculature. TTE to evaluate for cardiac source of embolus. Stroke labs: fasting lipid panel and hemoglobin A1c . IV NS 75 cc/hr. Permissive hypertension (SBP <220) for AIS not treated with IV t-PA. Treat fevers and blood sugars aggressively. 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 DVT prophylaxis, SCD s Heparin SQ # delerium workup CMP, CBC, UA # Rule out GCA: ESR, CRP # Rule out encephalitis: no meningitic signs. Consider LP in AM (patient recieved plavix in past 24 hours, hold off for now per disscussion with stroke fellow) Case Discussed with stroke fellow nutrition tech Dr. 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 I have reviewed the resident 's note detailed above. I agree with the resident's findings, assessment and plan as outlined in the note as detailed below. We saw the patient on rounds this am and then this afternoon when we also performed a LP. She is a poor historian as she is intermitantly confused but she is apparantly improved per . She has had 7-10 spellls like this over the past decade, told that this was due to anxiety, panic attacks, and hyperglycemia. She was admitted earlier this week with negative work up to an outside hospital and w/u was negative per . MRI here is unremarkable, nothing dramatic in temporal lobes. This is unlikely vascular. Her sed rate is a bit high as is her CRP and she does complain of temporal headache. Exam is difficult, she can not read, but can count fingers. Pupils react to light, no nystagmus. Assessment: Encephalopthy Thiamine (not ETOH but to be complete) LP results for HSV (Mollaret?) pending Once LP results show no infection (fluid was clear) I would start prednisone untill optho sees her on Sunday and would get a temporal artery biopsy EEG today Megha Daniel [phone]
--- OUTSIDE RECORDS SUMMARY | 2018-12-12 15:46 | XMS REPORT | Summary of Care ---
Author Author [facility] Organization [facility] Address Unknown Phone Unavailable Encounter JESUS Driscoll(ANTHONY) [id number] Date(s): 04/05/16 - 04/05/16 [facility] [address] Discharge Disposition: Home Attending Physician: Ankush Chapa MD Referring Physician: Ankush Chapa MD Vital Signs No data available for this section Problem List Condition Effective Dates Status Health Status Informant Diabetes Active mellitus(Confirmed) Hypertension(Confirm Active ed) Hyperthyroidism(Conf Resolved irmed) Irritable bowel Active syndrome(Confirmed) Allergies, Adverse Reactions, Alerts Substance Reaction Severity Status sulfa drugs Active Medications No data available for this section Results No data available for this section Immunizations No data available for this section [...] Smoking Cessation Counseling No Assessment and Plan No data available for this section
--- OUTSIDE RECORDS SUMMARY | 2018-12-12 15:46 | XMS REPORT | Continuity of Care Document ---
Author Author [facility] Interface Address Unknown Phone Unavailable Problems Problem Status Onset Date Classification Date Reported Comments Source EEG Active 04/05/2016 [facility] PENDING Active 04/05/2016 [facility] CVA Active 03/10/2016 [facility] DIABETIC Active 06/29/2013 [facility] Diabetes mellitus Active Problem 04/08/2016 [facility] Hypertension Active Problem 04/08/2016 [facility] Hyperthyroidism Resolved Problem 04/08/2016 [facility] Irritable bowel syndrome Active Problem 04/08/2016 [facility] Diabetes mellitus Active Problem 07/01/2013 [facility] Hypertension Active Problem 07/01/2013 [facility] Irritable bowel syndrome Active Problem 07/01/2013 [facility] ILLNESS, UNSPECIFIED Active [facility] LOCAL-REL SYMPTC EPI W CMPLX PRT SEIZ,NO Active [facility] Medications Medication Details Route Status Patient Instructions Ordering Provider Order Date Source Thyroxine 88 microgram, 1 tab, Route: PO, Drug form: TAB, Q630AM, Dosing Weight 75.909, kg, Start date: 03/13/16 6:30:00 CDT, Duration: 30 day, Stop date: 04/11/16 6:30:00 CDTNotes: Take 1 hour before or 2 hours after meal; Enteral feeds may interefere with the absorption of this medication. (Same as:Synthroid) No Longer Active 03/13/2016 [facility] escitalopram 20 mg oral tablet 20 mg=1 tab, PO, Daily Active 03/12/2016 [facility] Glipizide 5 MG Oral Tablet 5 mg=1 tab, PO, BID, 0 Refill(s) Active 03/12/2016 [facility] buPROPion 100 mg oral tablet 100 mg=1 tab, PO, Daily Active 03/12/2016 [facility] sucralfate 1 g oral tablet 1 gm=1 tab, PO, QID-Before Meals, 0 Refill(s) Active 03/12/2016 [facility] bimatoprost 0.1 MG/ML Ophthalmic Solution [Lumigan] 1 drp, BOTH EYES, Bedtime Active 03/12/2016 [facility] gabapentin 300 MG Oral Capsule See Instructions, 1 cap po QAM and 3 cap po QPM, 0 Refill(s) Active 03/12/2016 [facility] losartan 50 mg oral tablet 100 mg=2 tab, PO, Daily, 0 Refill(s) Active 03/12/2016 [facility] levothyroxine 88 mcg (0.088 mg) oral tablet 88 microgram=1 tab, PO, Q630AM, 0 Refill(s) Active 03/12/2016 [facility] amLODIPine 10 mg oral tablet 10 mg=1 tab, PO, Daily, 0 Refill(s) Active 03/12/2016 [facility] Metformin hydrochloride 500 MG Oral Tablet 500 mg=1 tab, PO, BID-Meals, # 30 tab, 0 Refill(s) Active 03/12/2016 [facility] atorvastatin 80 mg oral tablet 80 mg=1 tab, PO, Bedtime, 0 Refill(s) Active 03/12/2016 [facility] dorzolamide 20 MG/ML / Timolol 5 MG/ML Ophthalmic Solution [Cosopt] 1 drp, Route: BOTH EYES, BID, Drug form: SOLN, Start date: 03/12/16 9:00:00 CDT, Stop date: 04/10/16 17:00:00 CDTNotes: (Same as: Cosopt) Inactive 03/12/2016 [facility] Amlodipine 10 mg, 1 tab, Route: PO, Drug form: TAB, Daily, Dosing Weight 75.909, kg, Start date: 03/12/16 9:00:00 CDT, Duration: 30 day, Stop date: 04/10/16 9:00:00 CDTNotes: (Same as: Norvasc) Inactive 03/12/2016 [facility] gabapentin 300 MG Oral Capsule 300 mg, 1 cap, Route: PO, Drug form: CAP, Q12H, Dosing Weight 75.909, kg, (CrCl 30 - 59 ml/min), Start date: 03/12/16 9:00:00 CDT, Duration: 30 day, Stop date: 04/10/16 21:00:00 CDTNotes: (Same as: Neurontin) Inactive 03/12/2016 [facility] Lisinopril 20 mg, Route: PO, Drug form: TAB, Daily, Dosing Weight 75.909, kg, Start date: 03/12/16 9:00:00 CDT, Stop date: 04/10/16 14:00:00 CDT No Longer Active 03/12/2016 [facility] Seroquel 25 mg, 1 tab, Route: PO, Drug form: TAB, ONCE, Dosing Weight 75.909, kg, PRN Agitation, Start date: 03/12/16 0:39:00 CDT, Stop date: 03/12/16 0:39:00 CDTNotes: (Same as: SEROquel) Inactive 03/12/2016 [facility] atorvastatin 80 mg, 1 tab, Route: PO, Drug form: TAB, Bedtime, Dosing Weight 75.909, kg, Start date: 03/11/16 21:00:00 CDT, Duration: 30 day, Stop date: 04/09/16 21:00:00 CDTNotes: Same as Lipitor No Longer Active 03/12/2016 [facility] Hydralazine 10 mg, 0.5 mL, Route: IVP, Drug form: INJ, Q6H, Dosing Weight 75.909, kg, PRN Hypertension, Start date: 03/11/16 16:02:00 CDT, Duration: 30 day, Stop date: 04/10/16 16:01:00 CDTNotes: (Same as: Chap[place] pal) Push over 5 minutes No Longer Active 03/11/2016 [facility] Losartan 100 mg, 2 tab, Route: PO, Drug form: TAB, Daily, Dosing Weight 75.909, kg, Start date: 03/11/16 16:00:00 CDT, Duration: 30 day, Stop date: 04/10/16 9:00:00 CDTNotes: (Same as: Cozaar) No Longer Active 03/11/2016 [facility] Ativan 0.5 mg, 0.25 mL, Route: IV, Drug form: INJ, ONCE, Dosing Weight 75.909, kg, PRN as needed for anxiety, Start date: 03/11/16 14:23:00 CDT, Stop date: 04/10/16 14:22:00 CDTNotes: (Same as: Ativan) Inactive 03/11/2016 [facility] acyclovir + Sodium Chloride 0.9% IV 100 mL 460 mg, Route: IVPB, ABXQ8H, Dosing Weight 75.909, kg, Priority: NOW, Start date: 03/11/16 11:08:00 CDT, Duration: 30 day, Stop date: 04/10/16 3:08:00 CDT, CrCl > 50 mL / minNotes: (Same as: Zovirax) MEDICATION WASTE Product Size: 500 mg Product Wasted: ___ mg No Longer Active 03/11/2016 [facility] Acyclovir 460 mg, Route: IVPB, ABXQ8H, Dosing Weight 75.909, kg, Priority: NOW, Start date: 03/11/16 9:37:00 CDT, Duration: 30 day, Stop date: 04/10/16 1:37:00 CDT, CrCl > 50 mL / minNotes: (Same as: Zovirax) MEDICATION WASTE Product Size: 500 mg Product Wasted: ___ mg Inactive 03/11/2016 [facility] Saline Flush 0.9% 10 ml, Route: IVP, Drug Form: INJ, Dosing Weight 75.909, kg, Q12H, Start date: 03/11/16 9:00:00 CDT, Duration: 30 day, Stop date: 04/09/16 21:00:00 CDTNotes: Same as: BD Posiflush Sterile No Longer Active 03/11/2016 [facility] Iohexol 60 mL, Route: IVP, Drug Form: SOLN, Dosing Weight 75.909, kg, ONCALL, STAT, Start date: 03/11/16 7:44:00 CDT, Duration: 1 doses or times, Dose=2.2ml/kg, Max [id number] -- "To be infused by Radiology Staff ONLY" Inactive 03/11/2016 [facility] normal saline 0.9% IV 1000 mL 1,000 mL, Rate: 125 ml/hr, Infuse over: 8 hr, Route: IV, Dosing Weight 75.909 kg, Total Volume: 1,000, Start date: 03/11/16 7:18:00 CDT, Duration: 30 day, Stop date: 04/10/16 7:17:00 CDT Inactive 03/11/2016 [facility] Aspirin 300 mg, 1 supp, Route: IA, Drug form: SUPP, Daily, Dosing Weight 75.909, kg, PRN For Temp > 100.4 F, Start date: 03/11/16 5:25:00 CDT, Duration: 30 day, Stop date: 04/10/16 5:24:00 CDTNotes: Refrigerate. No Longer Active 03/11/2016 [facility] Ativan 1 mg, Route: IVP, Drug form: INJ, ONCE, Dosing Weight 75.909, kg, PRN Procedure, Start date: 03/11/16 2:30:00 CDT Inactive 03/11/2016 [facility] Ativan 2 mg, Route: IVP, Drug form: INJ, ONCE, Dosing Weight 75.909, kg, PRN Procedure, Start date: 03/11/16 2:29:00 CDT Inactive 03/11/2016 [facility] Aspirin 325 MG Enteric Coated Tablet 325 mg, 1 tab, Route: PO, Drug form: ECTAB, Daily, Dosing Weight 75.909, kg, Start date: 03/11/16 0:00:00 CDT, Duration: 30 day, Stop date: 04/09/16 9:00:00 CDTNotes: (Do Not Crush) Do not crush or chew. No Longer Active 03/11/2016 [facility] heparin 5,000 unit, 1 mL, Route: SUB-Q, Drug form: INJ, Q8H, Dosing Weight 75.909, kg, (For patients weighing Notes: porcine heparin No Longer Active 03/11/2016 [facility] Saline Flush 0.9% 10 ml, Route: IVP, Drug Form: INJ, Dosing Weight 75.909, kg, PRN, PRN Line Flush, Start date: 03/10/16 23:30:00 CDT, Duration: 30 day, Stop date: 04/09/16 23:29:00 CDTNotes: Same as: BD Posiflush Sterile No Longer Active 03/11/2016 [facility] Sodium Chloride 0.154 MEQ/ML Injectable Solution 1,000 mL, Rate: 75 ml/hr, Infuse over: 13.3 hr, Route: IV, Dosing Weight 75.909 kg, Total Volume: 1,000, Start date: 03/10/16 23:30:00 CDT, Duration: 30 day, Stop date: 04/09/16 23:29:00 CDT No Longer Active 03/11/2016 [facility] Labetalol 10 mg, 2 mL, Route: IVP, Drug form: INJ, Q10Min, Dosing Weight 75.909, kg, PRN Hypertension, For SBP > 220 mmHg and/or DBP > 120 mmHg., Start date: 03/10/16 23:30:00 CDT, Duration: 30 day, Stop date: 04/09/16 23:29:00 CDT No Longer Active 03/11/2016 [facility] normal saline 0.9% IV 1,000 mL 1,000 mL, Rate: 1000 ml/hr, Infuse over: 1 hr, Route: IV, Dosing Weight 70.455 kg, Total Volume: 1,000, Start date: 06/29/13 15:20:00, Duration: 1 doses or times, Stop date: 06/29/13 16:19:00 IV No Longer Active [place] 06/29/2013 [place] Alphagan P 0.1% ophthalmic solution Substitute Allowed Active 06/29/2013 [place] pantoprazole Substitution Allowed Active 06/29/2013 [place] Januvia Substitution Allowed Active 06/29/2013 [place] metFORmin Substitution Allowed Active 06/29/2013 [place] losartan Substitution Allowed Active 06/29/2013 [place] Crestor Substitution Allowed Active 06/29/2013 [place] levothyroxine Substitution Allowed Active 06/29/2013 [place] hydrochlorothiazide Substitution Allowed Active 06/29/2013 [place] glimepiride Substitution Allowed Active 06/29/2013 [place] Lyrica Substitution Allowed Active 06/29/2013 [place] amLODipine Substitution Allowed Active 06/29/2013 [facility] Allergies, Adverse Reactions, Alerts Substance Category Reaction Severity Reaction type Status Date Reported Comments Source sulfa drugs Assertion Drug allergy Active [facility] Immunizations Immunization Date Given Site Status Last Updated Comments Source Results Order Name Results Value Reference Range Date Interpretation Comments Source CHEM PANEL Magnesium Lvl 1.8 mg/dL 1.8 - 2.4 03/12/2016 [facility] CHEM PANEL Phosphorus 3.2 mg/dL 2.5 - 4.5 03/12/2016 [facility] CHEM PANEL eGFR 91 mL/min/1.73m2 03/12/2016 Result Comment: The eGFR is calculated using the [...] from the National Kidney Disease Education Program (NKDEP) which additionally recommends that when the eGFR is used in patients with extremes of body mass index for purposes of drug dosing, the eGFR should be multiplied by the estimated BMI. [facility] CHEM PANEL Sodium Lvl 140 meq/L 135 - 145 03/12/2016 [facility] CHEM PANEL Potassium Lvl 3.4 meq/L 3.5 - 5.1 03/12/2016 [facility] CHEM PANEL Creatinine Lvl 0.67 mg/dL 0.50 - 1.40 03/12/2016 [facility] CHEM PANEL BUN 17 mg/dL 7 - 22 03/12/2016 [facility] CHEM PANEL Glucose Lvl 124 mg/dL 70 - 99 03/12/2016 [facility] CHEM PANEL Calcium Lvl 9.2 mg/dL 8.5 - 10.5 03/12/2016 [facility] CHEM PANEL CO2 26 meq/L 24 - 32 03/12/2016 [facility] CHEM PANEL Chloride Lvl 103 meq/L 95 - 109 03/12/2016 [facility] CHEM PANEL AGAP 14.4 meq/L 10.0 - 20.0 03/12/2016 [facility] HEMATOLOGY MCH 29.9 pg 27.0 - 31.0 03/12/2016 [facility] HEMATOLOGY MCHC 33.5 g/dL 32.0 - 36.0 03/12/2016 [facility] HEMATOLOGY Platelet 263 K/CMM 133 - 450 03/12/2016 [facility] HEMATOLOGY RDW 14.3 % 11.5 - 14.5 03/12/2016 [facility] HEMATOLOGY MPV 9.6 fL 7.4 - 10.4 03/12/2016 [facility] HEMATOLOGY WBC 10.5 K/CMM 3.7 - 10.4 03/12/2016 [facility] HEMATOLOGY RBC 4.32 M/CMM 4.20 - 5.40 03/12/2016 [facility] HEMATOLOGY Hgb 12.9 g/dL 12.0 - 16.0 03/12/2016 [facility] HEMATOLOGY MCV 89.1 fL 80.0 - 98.0 03/12/2016 [facility] HEMATOLOGY Hct 38.5 % 36.0 - 48.0 03/12/2016 [facility] HEMATOLOGY Basophils # 0.1 K/CMM 0.0 - 0.2 03/12/2016 [facility] HEMATOLOGY Eosinophils # 0.1 K/CMM 0.0 - 0.5 03/12/2016 [facility] HEMATOLOGY Eosinophils 0.8 % 0.0 - 4.0 03/12/2016 [facility] HEMATOLOGY Monocytes 10.1 % 2.0 - 12.0 03/12/2016 [facility] HEMATOLOGY Lymphocytes 13.3 % 20.0 - 40.0 03/12/2016 [facility] HEMATOLOGY Basophils 0.5 % 0.0 - 1.0 03/12/2016 [facility] HEMATOLOGY Segs-Bands # 7.9 K/CMM 1.5 - 8.1 03/12/2016 [facility] HEMATOLOGY Monocytes # 1.1 K/CMM 0.0 - 0.8 03/12/2016 [facility] HEMATOLOGY Lymphocytes # 1.4 K/CMM 1.0 - 5.5 03/12/2016 [facility] HEMATOLOGY Segs 75.3 % 45.0 - 75.0 03/12/2016 [facility] PARATHYROID PROFILE Ca Norm WB 1.17 mMol/L 1.05 - 1.25 03/12/2016 [facility] PARATHYROID PROFILE Ca Ion WB 1.19 mMol/L 1.05 - 1.25 03/12/2016 [facility] BODY FLUIDS Protein CSF 52 mg/dL 15 - 45 03/11/2016 [facility] BODY FLUIDS Glucose CSF 86 mg/dL 45 - 80 03/11/2016 [facility] BODY FLUIDS Tube Num CSF 4 03/11/2016 [facility] BODY FLUIDS Color CSF Colorless (03/11/16 3:43 PM) Colorless 03/11/2016 [facility] BODY FLUIDS Comment CSF Differential not performed on WBC count of less than 5. 03/11/2016 [facility] BODY FLUIDS RBC CSF 1 /mm3 0 - 03 03/11/2016 [facility] BODY FLUIDS Clarity CSF Clear (03/11/16 3:43 PM) Clear 03/11/2016 [facility] BODY FLUIDS Supernat CSF Colorless (03/11/16 3:43 PM) Colorless 03/11/2016 [facility] BODY FLUIDS WBC CSF 1 /mm3 0 - 53 03/11/2016 [facility] MOLECULAR DIAGNOSTIC HSV 2 by PCR Negative 2 (03/11/16 3:43 PM) Negative 03/11/2016 Result Comment: This sample was NON DETECTED or BELOW THE LOWER LIMITS OF DETECTION for HSV 1/2 DNA by real-time PCR using hybridization probe and melting curve analysis. [facility] MOLECULAR DIAGNOSTIC Source HSV Cerebral Spinal Fluid 03/11/2016 [facility] MOLECULAR DIAGNOSTIC HSV 1 by PCR Negative 1 (03/11/16 3:43 PM) Negative 03/11/2016 Result Comment: This sample was NON DETECTED or BELOW THE LOWER LIMITS OF DETECTION for HSV 1/2 DNA by real-time PCR using hybridization probe and melting curve analysis. [facility] VIRAL - SEROLOGY Enterovirus PCR CSF Negative (03/11/16 3:43 PM) Negative 03/11/2016 [facility] HEMATOLOGY Sed Rate 37 mm/h 0 - 20 03/11/2016 [facility] SPECIAL CHEMISTRY Hgb A1C 6.9 % <=5.6 % 03/11/2016 [facility] Chest 1view DX Chest 1view DX EXAM: XR CHEST 1 VIEW DATE: 03/11/2016 7:13 AM CDT INDICATION: Fever COMPARISON: Yesterday. TECHNIQUE: AP chest FINDINGS: Lines and tubes: None. Lungs and pleura: Subsegmental atelectasis in the lung bases. No new pulmonary or pleural based abnormality is identified. Heart and mediastinum: The heart size is normal for technique. The mediastinal contours are normal. Bones: No acute findings. Upper abdomen: Partially imaged gastric lap band. IMPRESSION: No acute findings. 03/11/2016 - - Read by: Reinier Gillette MD Dictated Date/time: 03/11/16 18:16 Electronically Signed by: Reinier Gillette MD 03/11/16 18:17 FINAL REPORT [facility] Brain wo contrast CT Brain wo contrast CT EXAM: CT BRAIN WITHOUT CONTRAST DATE: 03/10/2016 11:30 PM CDT INDICATION: 65 year old female with weakness COMPARISON: Brain magnetic resonance imaging, earlier same date, head CT, 1 day prior. See also CT angiogram of the brain and neck, which was obtained at the same time as this noncontrast head CT. TECHNIQUE: Routine axial images of the brain were obtained . IV contrast: None. FINDINGS: Patient motion artifact mildly degrades the images particularly near vertex. Non-contrast images of the head demonstrate no edema, hemorrhage, mass lesion or other acute intracranial abnormality. The ventricles are normal. The basal cisterns and sulci are normal in size. There are scattered foci of low attenuation throughout the deep white matter, this is nonspecific most suggestive of chronic deep white matter ischemic changes. The romo white interfaces are otherwise preserved.There are mild atherosclerotic calcifications in arteries at the base of the brain. There is mild opacification of the ethmoidal air cells, the remaining visualized paranasal sinuses and mastoid air cells are well aerated. The orbits and mastoids are unremarkable. IMPRESSION: No acute intracranial abnormality. Chronic microangiopathic changes. 03/11/2016 - - This report was dictated by a Brush Polisher/Fellow. I have personally reviewed the images as well as the Resident's interpretation and agree with the findings. Read by: Enoch Nguyễn DO Resident: Enoch Nguyễn DO Dictated Date/time: 03/11/16 08:42 Electronically Signed by: Arpita Salas MD 03/12/16 01:44 FINAL REPORT [facility] Brain/Neck CTA Brain/Neck CTA EXAM: CT ANGIOGRAM OF THE BRAIN EXAM: CT ANGIOGRAM OF THE NECK DATE: 03/10/2016 11:30 PM CDT INDICATION: 65 year old female with weakness COMPARISON: Noncontrast head CT, obtained at same time, noncontrast head CT obtained one day prior. Brain magnetic resonance imaging obtained at 01:39 hours, 03/11/2016. Correlation also with previous brain magnetic resonance imaging and MRA, 01/20/2008. TECHNIQUE: -Rapid acquisition spiral images of the brain and neck were obtained between the aortic arch and the cranial vertex during intravenous infusion of iodinated contrast for the purposes of CT angiography. 3-D CT angiographic images are created using maximum intensity projection technique at the acquisition workstation. The source images are also presented for interpretation. IV contrast: 60 mL of Omnipaque 350. FINDINGS: NECK CTA: Aortic arch: The great vessels originate from the aortic arch in the standard configuration. No origin stenosis is identified. The vertebral artery origins are patent bilaterally. There are scattered atherosclerotic calcifications. Carotid arteries: Atherosclerotic plaque at the carotid bifurcations. Stenosis of the origin of the left ICA by 50-60%. Narrowing of the proximal right ICA <50%. Vertebral arteries: The vertebral arteries have a normal course, caliber and contour. The left vertebral artery is dominant. The soft tissues of the neck and other incidental structures are normal. BRAIN CTA: No branch occlusion, vascular injury, arteritis, vascular malformation or aneurysm is identified. Intracranial atherosclerosis without proximal branch hemodynamically significant stenosis. .The deep cerebral veins and major venous sinuses are normal. . Incidental note of a partially empty sella. IMPRESSION: Atherosclerotic plaque at the left > right carotid bifurcatons. Stenosis of the proximal left ICA by 50-6-%. (All qualitative and quantitative assessments of carotid bifurcation and proximal internal carotid artery stenosis are made referencing the distal internal carotid artery {NASCET criteria}.) 03/11/2016 - - This report was dictated by a Brush Polisher/Fellow. I have personally reviewed the images as well as the Resident's interpretation and agree with the findings. Read by: Enoch Nguyễn DO Resident: Enoch Nguyễn DO Dictated Date/time: 03/11/16 09:22 Electronically Signed by: Arpita Salas MD 03/12/16 01:43 FINAL REPORT [facility] CHEM PANEL eGFR 75 mL/min/1.73m2 03/11/2016 Result Comment: The eGFR is calculated using the [...] from the National Kidney Disease Education Program (NKDEP) which additionally recommends that when the eGFR is used in patients with extremes of body mass index for purposes of drug dosing, the eGFR should be multiplied by the estimated BMI. [facility] CHEM PANEL Creatinine Lvl 0.81 mg/dL 0.50 - 1.40 03/11/2016 [facility] CHEM PANEL Bili Direct 0.1 mg/dL 0.0 - 0.3 03/11/2016 [facility] CHEM PANEL eGFR 75 mL/min/1.73m2 03/11/2016 Result Comment: The eGFR is calculated using the [...] from the National Kidney Disease Education Program (NKDEP) which additionally recommends that when the eGFR is used in patients with extremes of body mass index for purposes of drug dosing, the eGFR should be multiplied by the estimated BMI. [facility] CHEM PANEL Bili Total 0.9 mg/dL 0.2 - 1.3 03/11/2016 [facility] CHEM PANEL AST 38 unit/L 0 - 37 03/11/2016 [facility] CHEM PANEL Alk Phos 78 unit/L 39 - 136 03/11/2016 [facility] CHEM PANEL Total Protein 7.3 g/dL 6.4 - 8.4 03/11/2016 [facility] CHEM PANEL Calcium Lvl 9.4 mg/dL 8.5 - 10.5 03/11/2016 [facility] CHEM PANEL CO2 25 meq/L 24 - 32 03/11/2016 [facility] CHEM PANEL ALT 19 unit/L 0 - 65 03/11/2016 [facility] CHEM PANEL Albumin Lvl 3.8 g/dL 3.5 - 5.0 03/11/2016 [facility] CHEM PANEL Potassium Lvl 4.0 meq/L 3.5 - 5.1 03/11/2016 [facility] CHEM PANEL Sodium Lvl 134 meq/L 135 - 145 03/11/2016 [facility] CHEM PANEL BUN 20 mg/dL 7 - 22 03/11/2016 [facility] CHEM PANEL Creatinine Lvl 0.81 mg/dL 0.50 - 1.40 03/11/2016 [facility] CHEM PANEL Chloride Lvl 100 meq/L 95 - 109 03/11/2016 [facility] CHEM PANEL Glucose Lvl 115 mg/dL 70 - 99 03/11/2016 [facility] CHEM PANEL B/C Ratio 25 6 - 25 03/11/2016 [facility] CHEM PANEL AGAP 13.0 meq/L 10.0 - 20.0 03/11/2016 [facility] CHEM PANEL Globulin 3.5 g/dL 2.0 - 4.0 03/11/2016 [facility] CHEM PANEL A/G Ratio 1.1 0.7 - 1.6 03/11/2016 [facility] DRUG SCREEN U Opiate Scr Positive *ABN* (03/11/16 12:06 AM) Negative 03/11/2016 [facility] DRUG SCREEN U Cannab Scr Negative *NA* (03/11/16 12:06 AM) Negative 03/11/2016 [facility] DRUG SCREEN U Benzodia Scr Negative *NA* (03/11/16 12:06 AM) Negative 03/11/2016 [facility] DRUG SCREEN U Amph Scr Negative *NA* (03/11/16 12:06 AM) Negative 03/11/2016 [facility] DRUG SCREEN U Winsome Scr Negative *NA* (03/11/16 12:06 AM) Negative 03/11/2016 [facility] DRUG SCREEN U Phencyc Scr Negative *NA* (03/11/16 12:06 AM) Negative 03/11/2016 [facility] DRUG SCREEN UDS Note See Note (03/11/16 12:06 AM) 03/11/2016 [facility] DRUG SCREEN U Cocaine Scr Negative *NA* (03/11/16 12:06 AM) Negative 03/11/2016 [facility] HEMATOLOGY PTT 22.6 s 22.9 - 35.8 03/11/2016 [facility] HEMATOLOGY MPV 10.3 fL 7.4 - 10.4 03/11/2016 [facility] HEMATOLOGY Platelet 287 K/CMM 133 - 450 03/11/2016 [facility] HEMATOLOGY RDW 14.5 % 11.5 - 14.5 03/11/2016 [facility] HEMATOLOGY MCHC 32.5 g/dL 32.0 - 36.0 03/11/2016 [facility] HEMATOLOGY MCH 29.4 pg 27.0 - 31.0 03/11/2016 [facility] HEMATOLOGY MCV 90.4 fL 80.0 - 98.0 03/11/2016 [facility] HEMATOLOGY Hct 39.0 % 36.0 - 48.0 03/11/2016 [facility] HEMATOLOGY Hgb 12.7 g/dL 12.0 - 16.0 03/11/2016 [facility] HEMATOLOGY RBC 4.31 M/CMM 4.20 - 5.40 03/11/2016 [facility] HEMATOLOGY WBC 12.8 K/CMM 3.7 - 10.4 03/11/2016 [facility] HEMATOLOGY Basophils # 0.1 K/CMM 0.0 - 0.2 03/11/2016 [facility] HEMATOLOGY Eosinophils # 0.1 K/CMM 0.0 - 0.5 03/11/2016 [facility] HEMATOLOGY Monocytes # 1.5 K/CMM 0.0 - 0.8 03/11/2016 [facility] HEMATOLOGY Lymphocytes # 1.5 K/CMM 1.0 - 5.5 03/11/2016 [facility] HEMATOLOGY Segs-Bands # 9.8 K/CMM 1.5 - 8.1 03/11/2016 [facility] HEMATOLOGY Basophils 0.6 % 0.0 - 1.0 03/11/2016 [facility] HEMATOLOGY Eosinophils 0.5 % 0.0 - 4.0 03/11/2016 [facility] HEMATOLOGY Monocytes 11.3 % 2.0 - 12.0 03/11/2016 [facility] HEMATOLOGY Lymphocytes 11.3 % 20.0 - 40.0 03/11/2016 [facility] HEMATOLOGY Segs 76.3 % 45.0 - 75.0 03/11/2016 [facility] IMMUNOLOGY C-REACTIVE PROTEIN 5.4 mg/L <=2.9 mg/L 03/11/2016 [facility] LIPIDS CHD Risk 3.30 3.90 - 5.80 03/11/2016 [facility] LIPIDS Trig 87 mg/dL <=149 mg/dL 03/11/2016 [facility] LIPIDS HDL 56 mg/dL >=61 mg/dL 03/11/2016 [facility] LIPIDS VLDL 17 03/11/2016 [facility] LIPIDS Chol 185 mg/dL <=199 mg/dL 03/11/2016 [facility] LIPIDS LDL (Calculated) 112 mg/dL <=99 mg/dL 03/11/2016 [facility] URINE AND STOOL UA Leuk Est Negative (03/11/16 12:06 AM) Negative 03/11/2016 [facility] URINE AND STOOL UA Sq Epi Occasional /LPF Few /LPF 03/11/2016 [facility] URINE AND STOOL UA Nitrite Negative (03/11/16 12:06 AM) Negative 03/11/2016 [facility] URINE AND STOOL UA Blood Moderate *ABN* (03/11/16 12:06 AM) Negative 03/11/2016 [facility] URINE AND STOOL UA Bili Negative *NA* (03/11/16 12:06 AM) Negative 03/11/2016 [facility] URINE AND STOOL UA Hyal Cast 1 /LPF 0 - 2 03/11/2016 [facility] URINE AND STOOL UA Urobilinogen <=1.0 mg/dL 0.1 - 1.0 03/11/2016 [facility] URINE AND STOOL UA Mucus Moderate /LPF None Seen /LPF 03/11/2016 [facility] URINE AND STOOL UA RBC 4 /HPF 0 - 2 03/11/2016 [facility] URINE AND STOOL UA WBC 1 /HPF 0 - 5 03/11/2016 [facility] URINE AND STOOL UA Turbidity Clear (03/11/16 12:06 AM) Clear 03/11/2016 [facility] URINE AND STOOL UA Color Yellow *NA* (03/11/16 12:06 AM) Yellow 03/11/2016 [facility] URINE AND STOOL UA Protein 20 mg/dL Negative mg/dL 03/11/2016 [facility] URINE AND STOOL UA pH 6.0 5.0 - 8.0 03/11/2016 [facility] URINE AND STOOL UA Spec Grav 1.019 <=1.030 03/11/2016 [facility] URINE AND STOOL UA Ketones 20 mg/dL Negative mg/dL 03/11/2016 [facility] URINE AND STOOL UA Glucose 300 mg/dL Negative mg/dL 03/11/2016 [facility] Brain w/wo contrast MRI Brain w/wo contrast MRI EXAM: MRI BRAIN WITHOUT AND WITH CONTRAST DATE: 03/11/2016 1:39 AM CDT INDICATION: Weakness COMPARISON: 01/20/2008 TECHNIQUE: Multiplanar, multisequence MR images of the brain are performed prior contrast administration. Postcontrast T1 images are also provided. CONTRAST: 15 mL Dotarem FINDINGS: Image quality is mildly degraded as a consequence of patient motion. However, the overall study remains of diagnostic utility. However, the patient could not tolerate further imaging and the postcontrast images are nearly nondiagnostic. Foci of T2 signal elevation in the deep white matter and periventricular regions have increased in number and extent respectively. However, there is no restricted diffusion to indicate a recent infarct. Areas of T2 signal elevation are also now present in the josiah. The appearance of the remainder of the brain parenchyma is , however, unchanged. In particular, there has been no interval hemorrhage or development of hydrocephalus. There is no pathologic enhancement. The sella turcica is CSF filled and expanded. This has not increased in extent. Incidental imaging of the orbits, paranasal sinuses, skull, and skull base demonstrates no interval change. Appropriate flow-voids are present in the vessels at the base of the brain. IMPRESSION: 1. No recent infarct or hemorrhage. 2. Increase in the size and number of T2 signal abnormalities in the white matter indicative of progression of microvascular ischemic change, now moderately advanced for age. 3. Partially empty sella. MRI examination of the brain is otherwise unchanged. 03/11/2016 - - Read by: Jason Harrell MD Dictated Date/time: 03/11/16 08:39 Electronically Signed by: Jason Harrell MD 03/11/16 08:47 FINAL REPORT [facility] URINALYSIS UA Urobilinogen <=1.0 mg/dL
*NA*
(06/29/2013 17:01:07) <sup> </sup> 0.1 - 1.0 06/29/2013 NA [place] URINALYSIS UA Turbidity Slight *ABN* (06/29/2013 17:01:07) Clear 06/29/2013 ABN [place] URINALYSIS UA Spec Grav 1.016 <=1.030 06/29/2013 Normal [place] URINALYSIS UA Ketones Negative mg/dL *NA* (06/29/2013 17:01:07) Negative 06/29/2013 [facility] [place] URINALYSIS UA Glucose Negative mg/dL *NA* (06/29/2013 17:01:07) Negative 06/29/2013 NA [place] URINALYSIS UA Color Dark Yellow *NA* (06/29/2013 17:01:07) Yellow 06/29/2013 [facility] [place] URINALYSIS UA Bili Negative *NA* (06/29/2013 17:01:07) Negative 06/29/2013 [facility] [place] URINALYSIS UA Bacteria Few /HPF *NA* (06/29/2013 17:01:07) None Seen 06/29/2013 NA [place] URINALYSIS UA WBC 1 /HPF 0 - 5 06/29/2013 Normal [place] URINALYSIS UA Sq Epi Many /LPF *ABN* (06/29/2013 17:01:07) Few 06/29/2013 ABN [place] URINALYSIS UA Leuk Est Negative (06/29/2013 17:01:07) Negative 06/29/2013 Normal [place] URINALYSIS UA Blood Negative (06/29/2013 17:01:07) Negative 06/29/2013 Normal [place] URINALYSIS UA Hyal Cast 4 /LPF 0 - 2 06/29/2013 [place] URINALYSIS UA Nitrite Negative (06/29/2013 17:01:07) Negative 06/29/2013 Normal [place] URINALYSIS UA Amorph Promise Occasional /HPF *NA* (06/29/2013 17:01:07) None Seen 06/29/2013 [facility] [place] URINALYSIS UA Mucus Few /LPF *NA* (06/29/2013 17:01:07) None Seen 06/29/2013 [facility] [place] URINALYSIS UA pH 5.5 5.0 - 8.0 06/29/2013 Normal [facility] URINALYSIS UA Protein 20 mg/dL *ABN* (06/29/2013 17:01:07) Negative 06/29/2013 ABN [facility] CHEMISTRY CK MB Index 0.8 0.0 - 2.5 06/29/2013 Normal [facility] CHEMISTRY eGFR 60 mL/min/1.73m2 06/29/2013 NA 2Result Comment: The eGFR is calculated using [...] from the National Kidney Disease Education Program (NKDEP) which additionally recommends that when the eGFR is used in patients with extremes of body mass index for purposes of drug dosing, the eGFR should be multiplied by the estimated BMI. [facility] CHEMISTRY B/C Ratio 19 6 - 25 06/29/2013 Normal [facility] CHEMISTRY A/G Ratio 1.1 0.7 - 1.6 06/29/2013 Normal [facility] CHEMISTRY Globulin 3.6 g/dL 2.0 - 4.0 06/29/2013 Normal [place] CHEMISTRY AGAP 16.4 meq/L 10.0 - 20.0 06/29/2013 Normal [place] CHEMISTRY Albumin Lvl 4.1 g/dL 3.5 - 5.0 06/29/2013 Normal [place] CHEMISTRY Total Protein 7.7 g/dL 6.4 - 8.4 06/29/2013 Normal [place] CHEMISTRY Calcium Lvl 10.2 mg/dL 8.5 - 10.5 06/29/2013 Normal [place] CHEMISTRY CO2 31 meq/L 24 - 32 06/29/2013 Normal [place] CHEMISTRY Chloride Lvl 97 meq/L 95 - 109 06/29/2013 Normal [place] CHEMISTRY Potassium Lvl 3.4 meq/L 3.5 - 5.1 06/29/2013 LOW [place] CHEMISTRY Sodium Lvl 141 meq/L 135 - 145 06/29/2013 Normal [place] CHEMISTRY Creatinine Lvl 1.0 mg/dL 0.5 - 1.4 06/29/2013 Normal [place] CHEMISTRY BUN 19 mg/dL 7 - 22 06/29/2013 Normal [place] CHEMISTRY Glucose Lvl 113 mg/dL 70 - 99 06/29/2013 [place] 3Interpretive Data: Adult reference range values reflect the clinical guidelines of the [place] [employer]. [facility] CHEMISTRY Bili Total 0.5 mg/dL 0.2 - 1.3 06/29/2013 Normal [place] CHEMISTRY Alk Phos 76 unit/L 39 - 136 06/29/2013 Normal [facility] CHEMISTRY AST 13 unit/L 0 - 37 06/29/2013 Normal [facility] CHEMISTRY ALT 19 unit/L 0 - 65 06/29/2013 Normal [place] CHEMISTRY Total CK 65 unit/L 12 - 191 06/29/2013 Normal [facility] CHEMISTRY CK MB 0.5 ng/mL 0.5 - 3.6 06/29/2013 Normal [place] CHEMISTRY Troponin-I null 0.00 - 0.40 06/29/2013 Normal [facility] HEMATOLOGY Basophils 0.2 % 0.0 - 1.0 06/29/2013 Normal [place] HEMATOLOGY Monocytes 5.8 % 2.0 - 12.0 06/29/2013 Normal [place] HEMATOLOGY Segs-Bands # 11.0 K/CMM 1.5 - 8.1 06/29/2013 HI [facility] HEMATOLOGY Eosinophils 0.3 % 0.0 - 4.0 06/29/2013 Normal [place] HEMATOLOGY Lymphocytes 10.1 % 20.0 - 40.0 06/29/2013 LOW [place] HEMATOLOGY Segs 83.6 % 45.0 - 75.0 06/29/2013 HI [place] HEMATOLOGY Lymphocytes # 1.3 K/CMM 1.0 - 5.5 06/29/2013 Normal [place] HEMATOLOGY Basophils # 0.0 K/CMM 0.0 - 0.2 06/29/2013 Normal [place] HEMATOLOGY Monocytes # 0.8 K/CMM 0.0 - 0.8 06/29/2013 Normal [place] HEMATOLOGY Eosinophils # 0.0 K/CMM 0.0 - 0.5 06/29/2013 Normal [facility] HEMATOLOGY PTT 30.3 s 22.9 - 35.8 06/29/2013 Normal 5Interpretive Data: Heparin Therapeutic Range: 57 - 92 Seconds [facility] HEMATOLOGY PT 12.2 s 12.0 - 14.7 06/29/2013 Normal [facility] HEMATOLOGY INR 0.91 0.85 - 1.17 06/29/2013 Normal 4Interpretive Data: RECOMMENDED RANGES FOR PROTIME INR: 2.0-3.0 for most medical and surgical thromboembolic states. 2.5-3.5 for artificial heart valves and recurrent embolism. INR SHOULD BE USED ONLY FOR PATIENTS ON STABLE ANTICOAGULANT THERAPY. [facility] HEMATOLOGY MPV 9.8 fL 7.4 - 10.4 06/29/2013 Normal [facility] HEMATOLOGY WBC 13.2 K/CMM 3.7 - 10.4 06/29/2013 [place] [facility] MCV 90.4 fL 81.0 - 99.0 06/29/2013 Normal [facility] HEMATOLOGY RDW 14.2 % 11.5 - 14.5 06/29/2013 Normal [facility] MCH 30.1 pg 27.0 - 31.0 06/29/2013 Normal [facility] HEMATOLOGY Platelet 273 K/CMM 133 - 450 06/29/2013 Normal [facility] RBC 4.71 M/CMM 4.20 - 5.40 06/29/2013 Normal [facility] Hct 42.6 % 36.0 - 48.0 06/29/2013 Normal [facility] Hgb 14.2 g/dL 12.0 - 16.0 06/29/2013 Normal [facility] HEMATOLOGY MCHC 33.3 g/dL 32.0 - 36.0 06/29/2013 Normal [facility] BEDSIDE GLUCOSE TESTING Gluc POC Lifscn 122 mg/dL 70 - 99 06/29/2013 [place] 1Interpretive Data: Upper Reportable Limit: 200 mg/dL. [facility] Vital Signs Vital Sign Value Date Comments Source Systolic (mm Hg) 135 03/12/2016 [facility] Diastolic (mm Hg) 62 03/12/2016 [facility] Respitory Rate 20 03/12/2016 [facility] Systolic (mm Hg) 146 03/12/2016 [facility] Diastolic (mm Hg) 63 03/12/2016 [facility] Respitory Rate 20 03/12/2016 [facility] Systolic (mm Hg) 133 03/12/2016 [facility] Diastolic (mm Hg) 60 03/12/2016 [facility] Respitory Rate 19 03/12/2016 [facility] Temperature Oral (F) 98.8 F 03/12/2016 [facility] BMI Calculated 32.68 03/11/2016 [facility] Height 152.4 cm 03/11/2016 [facility] Weight 75.909 03/11/2016 [facility] Diastolic (mm Hg) 86 06/29/2013 [place] Respitory Rate 19 06/29/2013 [place] Heart Rate 84 06/29/2013 [place] Systolic (mm Hg) 151 06/29/2013 [place] Temperature Oral (F) 97.1 F 06/29/2013 [place] Diastolic (mm Hg) 90 06/29/2013 [place] Heart Rate 84 06/29/2013 [place] Respitory Rate 18 06/29/2013 [place] Systolic (mm Hg) 161 06/29/2013 [place] Weight 70.455 06/29/2013 [place] Height 149.86 cm 06/29/2013 [place] Respitory Rate 20 06/29/2013 [place] Heart Rate 65 06/29/2013 [place] Temperature Oral (F) 96.5 F 06/29/2013 [place] Systolic (mm Hg) 148 06/29/2013 [place] Diastolic (mm Hg) 68 06/29/2013 [place] Encounters Location Location Details Encounter Type Encounter Number Reason For Visit Attending Provider ADM Date DC Date Status Source [facility] Emergency [id number] TONYTHUY NEO 06/29/2013 06/29/2013 [facility] OBS Observation Patient [id number] Megha Daniel 03/11/2016 03/12/2016 [facility] Outpatient [id number] Ankush Sammi 04/05/2016 04/06/2016 [facility] Procedures Procedure Code Date Perfomer Comments Source Abdominal hysterectomy [id number] [facility] Cholecystectomy [id number] [facility] Laparoscopic adjustable gastric banding [id number] [facility] Abdominal hysterectomy [id number] [facility] [id number] [facility]
--- NOTE | 2018-12-12 16:00 | NUR ---
Radiology called to inform they'll be taking the pt to Endo 3 for procedure.
--- NOTE | 2018-12-12 16:41 | NUR ---
Report given to Rima RN, Radiology.
--- NOTE | 2018-12-12 16:52 | NUR ---
Spouse called for consent to the procedure, spouse agrees.
[2018-12-12] MEDS ORDERED: LIDOCAINE HCL 1% LOCAL INJ 20 ML VIAL ONE (17:06)
[2018-12-12] MEDS ORDERED: IOPAMIDOL 370 MG/ML 200 ML INFUS..BTL INJ ONE (17:06)
--- NOTE | 2018-12-12 19:05 | NUR ---
Bedside rounds completed with MAYDA Rico shift production associate.
--- NOTE | 2018-12-12 19:13 | NUR ---
Called [facility], spoke with Given an ETA of 45 mins.
[2018-12-12 19:47] VITALS: BP 128/55
--- NOTE | 2018-12-17 07:40 | Diagnostic Imaging Report ---
Date and Time: 12/12/2018 Procedure: Replacement of percutaneous jejunostomy catheter news wire photo operator: Dr. Tan Pre-operative diagnosis: Dislodged percutaneous gastrostomy Post-operative diagnosis: Dislodged percutaneous jejunostomy Conscious Sedation: None The patient's heart rate and pulse oximetry were continuously monitored by the interventional radiology nurse. Blood pressure was monitored at 5 minute intervals. Additional Medications: Lidocaine 1% for local anesthesia Fluoroscopy time: 1.7 minutes Dose-area Product: 3.15 Gycm2. Frontal Air Kerma: 9.80 mGy Contrast used: 30 cc Isovue-300 Estimated blood loss: Minimal Specimens: None Implants: 14 Austrian locking loop in each catheter DISCUSSION: Informed consent was obtained from the next of kin and documented in the medical record. The patient was placed in the supine position on the fluoroscopic table. The existing left mid abdominal ostomy was prepped and draped in the standard sterile fashion. 1% lidocaine was infiltrated into the skin and subcutaneous tissues for local anesthesia. Under fluoroscopic guidance a 5 [place] angled catheter was advanced through the ostomy and towards midline. Injection of dilute contrast material resulted in opacification of multiple jejunal loops. Of note, multiple radiopaque sutures are noted in the mid epigastric region, the expected region of the stomach. A 0.0 3 5-in. Amplatz Super Stiff wire was then advanced through the catheter ankle old within the jejunum. The catheter was then exchanged over the wire for a 14 Austrian locking loop all purpose drainage catheter, which was advanced over the wire and positioned just to the right of midline. The wire was removed and injection of dilute contrast material confirmed appropriate positioning of the catheter tip within the jejunum. The catheter was flushed with sterile saline and secured to the skin with monofilament nylon suture. A sterile dressing was applied. FINDINGS: Dislodged percutaneous jejunostomy catheter IMPRESSION: Successful replacement of a percutaneous jejunostomy catheter under fluoroscopic guidance. A 14 Austrian locking loop drainage catheter was placed, as a balloon retention jejunostomy was unavailable. Signed by: Dr. Camacho Tan M.D. on 12/17/2018 7:37 AM
--- NOTE | 2018-12-19 11:44 | Diagnostic Imaging Report ---
Date and Time: 12/12/2018 Procedure: Replacement of percutaneous jejunostomy catheter offset press operator: Dr. Tan Pre-operative diagnosis: Dislodged percutaneous gastrostomy Post-operative diagnosis: Dislodged percutaneous jejunostomy Conscious Sedation: None The patient's heart rate and pulse oximetry were continuously monitored by the interventional radiology nurse. Blood pressure was monitored at 5 minute intervals. Additional Medications: Lidocaine 1% for local anesthesia Fluoroscopy time: 1.7 minutes Dose-area Product: 3.15 Gycm2. Frontal Air Kerma: 9.80 mGy Contrast used: 30 cc Isovue-300 Estimated blood loss: Minimal Specimens: None Implants: 14 [place] locking loop in each catheter DISCUSSION: Informed consent was obtained from the next of kin and documented in the medical record. The patient was placed in the supine position on the fluoroscopic table. The existing left mid abdominal ostomy was prepped and draped in the standard sterile fashion. 1% lidocaine was infiltrated into the skin and subcutaneous tissues for local anesthesia. Under fluoroscopic guidance a 5 [place] angled catheter was advanced through the ostomy and towards midline. Injection of dilute contrast material resulted in opacification of multiple jejunal loops. Of note, multiple radiopaque sutures are noted in the mid epigastric region, the expected region of the stomach. A 0.0 3 5-in. Amplatz Super Stiff wire was then advanced through the catheter ankle old within the jejunum. The catheter was then exchanged over the wire for a 14 [place] locking loop all purpose drainage catheter, which was advanced over the wire and positioned just to the right of midline. The wire was removed and injection of dilute contrast material confirmed appropriate positioning of the catheter tip within the jejunum. The catheter was flushed with sterile saline and secured to the skin with monofilament nylon suture. A sterile dressing was applied. FINDINGS: Dislodged percutaneous jejunostomy catheter IMPRESSION: Successful replacement of a percutaneous jejunostomy catheter under fluoroscopic guidance. A 14 [place] locking loop drainage catheter was placed, as a balloon retention jejunostomy was unavailable. Signed by: Dr. Camacho Tan M.D. on 12/17/2018 7:37 AM
== END 2018-12-12 19:45 | disposition home or self-care (01) ==
LOC: ER 13:58 → ERHOLD 15:33
DX: Z43.4 Encounter for attention to other artificial openings of digestive tract (principal); Z88.2 Allergy status to sulfonamides; Z93.0 Tracheostomy status
CPT/HCPCS: 49451; 74470; 94002; 99284; C1769; G0378; J2001 ×2; J7030; Q9967

== ENCOUNTER 2018-12-13 17:29 | Inpatient (IN) | payer MEDICARE, OTHER ==
[~2018-12-13] VITALS: Ht 165.1 cm; Wt 64.4 kg
--- NOTE | 2018-12-13 16:21 | Diagnostic Imaging Report ---
Examination: Single AP view of the chest. COMPARISON: None. INDICATION: Productive cough DISCUSSION: Lines/tubes: Tracheostomy. Dialysis catheter with tip overlying the cavoatrial junction. Lungs: Central venous congestion. Left perihilar opacity. Pleura: Small effusions. Heart and mediastinum: The heart and the mediastinum are unremarkable. Bones and soft tissues: No acute bony abnormalities. IMPRESSION: 1. Left perihilar opacity may reflect atelectasis or pneumonia. Signed by: Dr. Clifton Rodrigeuz M.D. on 12/13/2018 4:17 PM
[~2018-12-13 17:29] MED LIST changes: +LIDOCAINE HCL 1% LOCAL INJ 20 ML VIAL ONE; +SODIUM CHLORIDE 0.9% 500ML 500 ML ONE
--- NOTE | 2018-12-13 17:30 | NUR ---
Carrington RT at bedside, connecting pt to vent at this time. Pt noted to be coughing. Suctioned performed. Thick yellowish/brown sputum obtained. notified.
[2018-12-13] MEDS ORDERED: CEFEPIME 2 GM/NS 0.9% 100 ML 100 ML IV SCH (17:45)
[2018-12-13] MEDS ORDERED: VANCOMYCIN 1GM/NS 250 ML 250 ML IV ONE (17:45)
[2018-12-13] MEDS ORDERED: AZTREONAM (AZACTAM) 1 GM in WATER STERILE 10ML VIAL 10 ML IV STA (17:45)
[2018-12-13] MEDS ORDERED: AZTREONAM 1 GM/NS 50 ML 50 ML IV ONE (18:00)
[2018-12-13 18:38] LABS: BASOPHILS # (AUTO) 0.1 (0.0-0.1); BASOPHILS % 0.6 % (0.0-1.0); EOSINOPHILS # (AUTO) 0.4 (0.0-0.4); EOSINOPHILS % 2.1 % (0.0-6.0); HEMATOCRIT 25.8 % (34.2-44.1); HEMOGLOBIN 7.7 g/dL (12.0-16.0); LYMPHOCYTES # (AUTO) 1.7 (1.0-3.2); MEAN CORPUSCULAR HEMOGLOBIN 25.9 pg (28-32); MEAN CORPUSCULAR HGB CONC 29.8 g/dL (31-35); MEAN CORPUSCULAR VOLUME 86.9 fL (81-99); MONOCYTES # (AUTO) 1.5 (0.2-0.8); MONOCYTES % 8.1 % (4.4-11.3); NEUTROPHILS # (AUTO) 14.6 (2.1-6.9); NEUTROPHILS % 79.6 % (38.7-80.0); PLATELET COUNT 589 x10e3/uL (140-360); RED BLOOD COUNT 2.97 x10e6/uL (3.6-5.1); RED CELL DISTRIBUTION WIDTH 18.2 % (11.7-14.4)
[2018-12-13 18:42] LABS: INR 1.11; PROTHROMBIN TIME 15.3 seconds (11.9-14.5)
[2018-12-13 18:43] LABS: PARTIAL THROMBOPLASTIN TIME 39.7 seconds (23.8-35.5)
[2018-12-13 18:46] LABS: BILIRUBIN,URINE 1+ (NEGATIVE); CLARITY,URINE SL CLOUDY (CLEAR); COLOR,URINE YELLOW (YELLOW); KETONES,URINE TRACE (NEGATIVE); LEUKOCYTE ESTERASE ,URINE TRACE (NEGATIVE); NITRITE,URINE NEGATIVE (NEGATIVE); PROTEIN,URINE DIPSTICK NEGATIVE (NEGATIVE); URINE UROBILINOGEN 0.2 mg/dL (0.2 - 1)
[2018-12-13 18:51] LABS: STREPTOCOCCUS GRP A ANTIGEN NEGATIVE (NEGATIVE)
[2018-12-13 18:53] LABS: ALBUMIN 2.6 g/dL (3.5-5.0); ALBUMIN/GLOBULIN RATIO 0.5 (0.8-2.0); ANION GAP 22.4 mmol/L (8-16); CALCIUM 10.8 mg/dL (8.4-10.2); CREATININE, SERUM 2.91 mg/dL (0.57-1.11); POTASSIUM 4.4 mmol/L (3.5-5.1)
[2018-12-13 18:54] LABS: AMORPHOUS SEDIMENT,URINE MANY (FEW); BACTERIA,URINE MODERATE /HPF
[2018-12-13 18:58] LABS: INFLUENZAE A&B ANTIGEN (RAPID) NEGATIVE (NEGATIVE)
--- NOTE | 2018-12-13 18:58 | NUR ---
Walking rounds with Nanda Servin RN.
[2018-12-13 18:59] LABS: CREATINE KINASE MB 3.2 ng/mL (0-5.0)
[2018-12-13 19:09] LABS: B-TYPE NATRIURETIC PEPTIDE2 138.5 pg/mL (0-100)
[2018-12-13] MEDS ORDERED: DEXTROSE 50% SYRINGE 50 ML IV PRN (19:30)
[2018-12-13 21:00] VITALS: BP_SYST 159; BP_SYST 165; BP_DIAS 60; BP_DIAS 76
[2018-12-13 21:00] LABS: EOSINOPHILS % (MANUAL) 2 % (0-7); HYPOCHROMASIA SLIGHT; LYMPHOCYTES % (MANUAL) 7 % (19-48); MONOCYTES % (MANUAL) 8 % (3.4-9.0); NEUTROPHILS % (MANUAL) 82 % (40-74)
[2018-12-13] MEDS: INSULIN LISPRO 100 UNIT/1 ML 3ML VIAL SQ SCH (21:00)
[2018-12-13 21:01] LABS: PLATELET ESTIMATE MODERATELY INCREASED; PLATELET MORPHOLOGY COMMENT NORMAL; RBC MORPHOLOGY COMMENT NORMAL
[2018-12-13 21:07] VITALS: BP 159/76
[2018-12-13 22:00] VITALS: BP 126/55
[2018-12-13] MEDS ORDERED: WATER STERILE IV SCH (22:00)
[2018-12-13] MEDS ORDERED: AZTREONAM IV SCH (22:00)
[2018-12-13 23:00] VITALS: BP 155/59
[2018-12-13 23:59] VITALS: BP 145/54
[2018-12-14] VITALS (22 sets, daily range): BP systolic 116–158; BP diastolic 53–82
[2018-12-14] MEDS ORDERED: IPRATROPIUM BROMIDE 0.02% 2.5 ML NEB NEB SCH (01:00)
[2018-12-14] MEDS ORDERED: AZTREONAM 1 GM VIAL ONE (01:47)
[2018-12-14] MEDS ORDERED: SODIUM CHLORIDE 0.9% 50ML 50 ML ONE (01:48)
[2018-12-14] MEDS: AZTREONAM IV SCH ×3 (02:01→20:49)
[2018-12-14] MEDS: SODIUM CHLORIDE 0.9% IV SCH ×3 (02:01→20:49)
[2018-12-14 05:33] LABS: BASOPHILS # (AUTO) 0.1 (0.0-0.1); BASOPHILS % 0.8 % (0.0-1.0); EOSINOPHILS # (AUTO) 0.3 (0.0-0.4); EOSINOPHILS % 2.8 % (0.0-6.0); HEMATOCRIT 23.9 % (34.2-44.1); HEMOGLOBIN 7.1 g/dL (12.0-16.0); LYMPHOCYTES # (AUTO) 1.4 (1.0-3.2); LYMPHOCYTES % 11.5 % (18.0-39.1); MEAN CORPUSCULAR HEMOGLOBIN 25.7 pg (28-32); MEAN CORPUSCULAR HGB CONC 29.7 g/dL (31-35); MEAN CORPUSCULAR VOLUME 86.6 fL (81-99); MONOCYTES # (AUTO) 1.1 (0.2-0.8); MONOCYTES % 8.7 % (4.4-11.3); NEUTROPHILS # (AUTO) 9.3 (2.1-6.9); NEUTROPHILS % 75.7 % (38.7-80.0); PLATELET COUNT 532 x10e3/uL (140-360); RED BLOOD COUNT 2.76 x10e6/uL (3.6-5.1); RED CELL DISTRIBUTION WIDTH 18.1 % (11.7-14.4)
--- NOTE | 2018-12-14 05:42 | Diagnostic Imaging Report ---
EXAMINATION: CHEST SINGLE (PORTABLE) INDICATION: ^PNEMONIA ^[id number] ^[id number] ^Y COMPARISON: 12/13/2018 FINDINGS: AP view TUBES and LINES: Stable tracheostomy tube and right internal jugular dialysis catheter. LUNGS: Lungs are well inflated. Unchanged central peribronchovascular thickening/cuffing. Mild interstitial edema. PLEURA: Suspected small left pleural effusion. No pneumothorax. HEART AND MEDIASTINUM: The cardiomediastinal silhouette is unremarkable. BONES AND SOFT TISSUES: Aorta is mildly tortuous. Soft tissues are unremarkable. UPPER ABDOMEN: No free air under the diaphragm. IMPRESSION: Unchanged central peribronchovascular thickening/cuffing. Underlying perihilar pneumonia cannot be excluded. Mild interstitial edema. Suspected small left pleural effusion, decreased from prior exam. Signed by: Dr. Yury Hilton MD on 12/14/2018 5:39 AM
[2018-12-14 05:48] LABS: ALBUMIN 2.4 g/dL (3.5-5.0); ALBUMIN/GLOBULIN RATIO 0.5 (0.8-2.0); ANION GAP 17.1 mmol/L (8-16); CALCIUM 10.3 mg/dL (8.4-10.2); CREATININE, SERUM 2.53 mg/dL (0.57-1.11); POTASSIUM 4.1 mmol/L (3.5-5.1)
[2018-12-14 06:18] LABS: CREATINE KINASE MB 3.1 ng/mL (0-5.0)
--- NOTE | 2018-12-14 07:06 | Consultation ---
DATE OF CONSULTATION: 12/13/2018 Pulmonary Medicine Consult ADDITIONAL REFERRING PHYSICIAN: Gerardo Mccoy MD REASON FOR REFERRAL: Acute respiratory failure. HISTORY OF PRESENT ILLNESS: Ms. Zaragoza is a pleasant 68-year-old female with respiratory failure. The patient well known to me from multiple outside encounters. The patient with history of bariatric surgery. She had subsequent complications and developed GI leak. She had a subdiaphragmatic abscess. This all began after she had a previous laparoscopic band surgery that was converted to sleeve gastrectomy. She had GI stenting and abscess debridement by surgery. The patient developed postoperative ARDS and aspiration pneumonia. She had tracheostomy, tube as well. She necessitated dialysis due to kidney failure. The patient was transported to [facility] for feeding tube dislodgement. The patient had a tube placed by Interventional Radiology, but on her way outside, it was noted she was having a lot of tachypnea. The patient had worsening pallor and she was recommended for going to the emergency room. Chest x-ray demonstrated a moderate size and she was recommended for hospitalization. cadd instructor. PAST MEDICAL HISTORY: Diabetes, hypertension, obstructive sleep apnea, thyroid disease, obesity, history of laparoscopic band surgery and later sleeve gastrectomy with complications thereof, acute kidney failure/probable ESRD, history of atrial fibrillation, history of acute on chronic respiratory failure with tracheostomy placement, history of dysphagia with tube placement. MEDICATIONS: Medication list reviewed per electronic record. ALLERGIES: BACTRIM, ADHESIVE BANDAGE. FAMILY HISTORY: Noncontributory. SOCIAL HISTORY: No alcohol, no drugs, nonsmoker. REVIEW OF SYSTEMS: Cannot get as she is on the ventilator. OBJECTIVE: VITAL SIGNS: The patient currently afebrile with vital signs noted and reviewed per the chart record. HEENT: Normocephalic, atraumatic. NECK: Supple. Throat midline. LUNGS: Bilateral air entry, moderate rhonchi. CARDIOVASCULAR: S1 and S2. No murmurs, rubs, or gallops. ABDOMEN: Soft and nontender. EXTREMITIES: No clubbing. No cyanosis. There is no edema. INTEGUMENT: No rash. No purpura. LABORATORY DATA: white count 18, hematocrit 26, platelets 589. BUN is 37, creatinine 2.9, bicarbonate 22. Calcium 10.8. BNP 138. Albumin 2.6, globulin is 4.9. Urinalysis with 6-10 white blood cells. Chest radiography with left moderate perihilar opacities. IMPRESSION AND PLAN: 1. Acute respiratory failure, on ventilator. 2. Chronic respiratory failure, status post tracheostomy. 3. Pneumonia, acquired prior to hospitalization. 4. Recent laparoscopic band conversion to gastric sleevectomy with complications. 5. History of peritonitis, GI leak, subdiaphragmatic abscess status post GI stenting, debridement of abscess. 6. End-stage renal disease. 7. History of atrial fibrillation. 8. Diabetes. 9. Hypertension. 10. Obstructive sleep apnea. 11. Thyroid disease. 12. Obesity. 13. Pneumonia. 14. Anxiety. At this time, we recommend antibiotics for pneumonia. Check sputum culture. The patient needs vitamin and good nutrition. She has feeding tube and tube feeds will be resumed. The patient requires special vitamins. Furthermore, the patient is reasonable for a contrast CT of chest meaning oral contrast to make sure there is no GI leak. The patient would need abdominal as well CAT scan. Continue on dialysis per renal expert. We will follow along very closely. MD SUZIE Wells/CONOR /[id number]
[2018-12-14] MEDS: INSULIN LISPRO 100 UNIT/1 ML 3ML VIAL SQ SCH ×4 (07:30→21:44)
[2018-12-14] MEDS: IPRATROPIUM BROMIDE 0.02% 2.5 ML NEB NEB SCH ×4 (11:30→22:35)
[2018-12-14] MEDS: ALBUTEROL SULF 0.083% NEB SOLN 3 ML NEB NEB SCH ×4 (11:30→22:35)
--- NOTE | 2018-12-14 12:30 | NUR ---
Nutrition Intervention Note RD Recommendation(s) for Physician: Initiate Nepro as ordered Plan of Care: RD following, monitoring for tolerance and adequacy Nutrition reason for involvement: Nutrition Risk Trigger - EN via jejunostomy tube RD Assessment Initial encounter with patient. Pt is NPO and is to receive Nepro at 40ml/hr via jejunostomy tube which will provide 697ml of free H2O, 1728 kcals, and 77.7g of protein. Pt denies any nausea, vomiting or diarrhea. Pt has dental implants. Jejunostomy placement has been confirmed Principal Problems/Diagnoses: chronic respiratory failure PMH: subdiaphragmatic abscess, exploratory laparotomy, T2DM, oropharyngeal dysphagia, stage 2 sacral wound, CKD stage 5 on HD, Complications from lap band surgery, peritonitis IVF: None GI: Normal BM Skin: stage 2 sacral wound Labs: (12/14/2018) Meds: (12/14/2018) Malnutrition Evaluation (12/14/2018) The patient does not meet criteria for a specified degree of malnutrition at this time. Will re-evaluate at follow-up as appropriate. Diet Education Needs Assessment: Diet education not indicated, patient is NPO except for EN Ht:65 Wt:146.5lbs BMI:24.4kg/m2 IBW:125lbs Estimated Nutritional Needs: 1664 - 1997 kcals at 25-30 kcals/kg/bw 67-98g/kg/bw Nutrition Prescription (Diet Order): NPO Food Allergies: no known food allergies Diet Adequacy: Meeting calorie needs, Meeting protein needs, Meeting fluid needs Tolerance: No EN infusing at time of visit Nutrition Care Level:low Nutrition Diagnosis: Swallowing difficulty related to chronic illness as evidenced by dysphagia Goal:Patient will meet 75-100% of estimated needs by follow up Progress: Progressing Interventions: EN via jejunostomy tube Monitoring/Evaluation: Total energy intake, Total protein intake, Formula/Solution, Weight change. Anthony Tan RD, LD, CNSC
[2018-12-14] MEDS ORDERED: SODIUM CHLORIDE 0.9% 250ML 250 ML IV NR (13:00)
--- NOTE | 2018-12-14 13:22 | NUR ---
SOCIAL WORK INITIAL ASSESSMENT Conveyor Worker to bedside to discuss plan of care with patient/family. CM/SW role and care transitions discussed. Anticipated discharge plan discussed along with duration of care. CM/SW discussed patients right to make decisions in care. CM/SW work hours given. Patient lives: [facility] Admit/Transfer: VIA PROCEDURE FROM ED POA/Emergency contact: PIERCE KUMAR [phone] Current/Previous Home Health: [facility] PCP/Follow-up Care: FACILITY Current/Previous DME: UNKNOWN Other Services: Employment Status: Areas of Concerns: Referral Needs: Education Needs: IMM/BOCANEGRA given and signed (if applicable): Goal for discharge: UNKNOWN AT THIS TIME CM/SW left business card at the bedside with contact information. Name and number was also written on the patients whiteboard. Patient verbalized understanding of discussion. CM will follow-up with ongoing discharge and transition of care needs.
--- NOTE | 2018-12-14 13:30 | NUR ---
Dr. Farias here to see patient
--- NOTE | 2018-12-14 15:33 | NUR ---
Patient has thick, copious pale yellow secretions and requires frequent suctioning every 2 hours. Dialysis in progress and tolerating well.
--- NOTE | 2018-12-14 15:44 | NUR ---
linens changed. stage 2 sacral pressure ulcer present. applied allyven foam pad to area. wound care consult obtained when notified Dr. Mccoy at bedside.
[2018-12-14] MEDS ORDERED: ALBUMIN 25% 12.5GM 0.25 GM/ML BTL IV PRN (17:45)
[2018-12-14] MEDS ORDERED: SODIUM CHLORIDE 0.9% 250ML 500 ML IV PRN (17:45)
[2018-12-14] MEDS ORDERED: HEPARIN SOD (PORCINE) 1000 UNIT/ML SDV ONE (17:45)
[2018-12-14] MEDS ORDERED: SODIUM CHLORIDE 0.9% 1000ML 2,000 ML IV PRN (17:45)
[2018-12-14] MEDS ORDERED: MANNITOL 25% 12.5GM/50 ML VIAL IV PRN (17:45)
[2018-12-14] MEDS ORDERED: HEPARIN SOD (PORCINE) 1000 UNIT/ML SDV IV PRN (17:45)
--- NOTE | 2018-12-14 18:30 | NUR ---
One Unit PRBC to be given tonight after dialysis.
--- NOTE | 2018-12-14 18:30 | NUR ---
Dialysis completed and tolerated well and 1 Liter taken off.
[2018-12-14] MEDS: CEFEPIME 2 GM/NS 0.9% 100 ML 100 ML IV PRN (19:55)
--- NOTE | 2018-12-14 20:55 | History and Physical ---
CHIEF COMPLAINT: Shortness of breath. HISTORY OF PRESENT ILLNESS: This is a 68-year-old white woman, who was transferred from a local [facility] facility namely [facility] for G- tube replacement. In the Interventional Radiology suite, the patient unfortunately developed respiratory distress and was subsequently transferred to the emergency department. Chest x-ray performed in the emergency department revealed findings consistent with pneumonia. Preliminary sputum cultures are revealing many Gram negative olu bacterial species. Urinalysis performed in the emergency room reveals slightly cloudy yellow urine with trace ketones, 1+ bilirubin, 6 to 10 white blood cells per high power field, and moderate bacteria. The patient was admitted for further evaluation and treatment. REVIEW OF SYSTEMS: GENERAL: The patient progressively lost weight over the last few months, but we cannot quantify. The patient has been having low grade fever since yesterday. HEENT: No complaints of headaches or visual changes. CARDIOVASCULAR/RESPIRATORY: The patient began experiencing respiratory distress yesterday while having her G-tube replaced. She does have cough. GI: The patient was having her G-tube replaced yesterday. Unfortunately, this woman suffers from complications secondary to remote sleeve gastrectomy surgery. : Lopez catheter in place. She does appear to have urinary tract infection. MUSCULOSKELETAL: She is bedbound and she suffers from physical debility. PAST MEDICAL HISTORY: 1. Physical debility. 2. End-stage renal disease. 3. Hypertensive heart disease. 4. Type 2 diabetes mellitus. 5. Chronic respiratory failure (history of tracheostomy tube placement). 6. History of atrial fibrillation. 7. History of dysphagia requiring G-tube placement. 8. Depression. 9. Anxiety disorder. 10. Hypothyroidism. PAST SURGICAL HISTORY: 1. Tracheostomy tube placement. 2. G-tube placement. 3. Gastric banding. 4. Sleeve gastrectomy resulting in multiple subsequent complications namely GI leak and subdiaphragmatic abscess. FAMILY HISTORY: Noncontributory. SOCIAL HISTORY: This woman is . No documented history of alcohol or tobacco use. ALLERGIES: SULFA. MEDICATIONS: In the fpc are: 1. Acetaminophen 650 q.4 as needed. 2. N-acetylcysteine nebulizer treatment twice a day. 3. Baclofen 5 mg q.8 hours p.r.n. spasms. 4. Brimonidine one drop to each eye twice a day. 5. Bupropion 100 mg b.i.d. 6. Clonazepam 1 mg b.i.d. 7. Colace 100 mg b.i.d. 8. Lexapro 20 mg daily. 9. Famotidine 20 mg at bedtime. 10. Nephro-Angel one daily. 11. Furosemide 40 mg b.i.d. 12. Gabapentin 100 mg at bedtime. 13. Guaifenesin 10 mL every 4 hours p.r.n. cough. 14. Gregory 10/325 one every 6 hours p.r.n. pain. 15. Lantus insulin 15 units subcutaneously every night. 16. Humalog insulin sliding scale. 17. Ipratropium bromide/albuterol sulfate nebulized treatments every 6 hours as needed. 18. Acidophilus 1 t.i.d. 19. Lactulose 20 g daily. 20. Latanoprost one drop to each eye every night. 21. Levothyroxine 250 mcg daily. 22. Cytomel 50 mcg a day. 23. Loperamide 3 mg b.i.d. 24. Megace 400 mg daily. 25. Ondansetron 4 mg daily as needed for nausea. 26. MiraLax 17 g daily. 27. Potassium bicarbonate 20 mEq daily. 28. Seroquel 100 mg at bedtime. 29. Zinc oxide ointment apply to affected area daily. 30. Thiamine 100 mg once daily. PHYSICAL EXAMINATION: GENERAL: She is awake, alert. She is visibly upset, very emotional. She is only oriented to self, not to time or place. She appears to be confused likely from sepsis. Height 5 feet 5 inches, weight 146 pounds, BMI 24. VITAL SIGNS: Blood pressure is 158/88, pulse is in the 90s, oxygen saturation 100% and she is currently on a ventilator, and FiO2 35%. She is on ventilator AC mode via tracheostomy tube. Temperature at this time is 98.9, last checked highest temperature was 99.5. INTEGUMENT: Skin is warm and dry. No pallor or jaundice. She has a stage II sacral decubitus ulcer. HEENT: Anicteric sclerae. Moist mucous membranes. NECK: Supple. She has a tracheostomy tube in place that is currently connected to the ventilator. CARDIOVASCULAR: Distant heart sounds. Regular rate and rhythm. LUNGS: The patient has crackles in the bilateral lungs escobar. ABDOMEN: Soft. She has G tube in place, but it is currently not being used. EXTREMITIES: Trace edema in the bilateral lower legs. She has obvious muscle wasting in the extremities. NEUROLOGIC: She is bedbound. She looks very debilitated. DIAGNOSES: 1. Sepsis secondary to Gram negative olu pneumonia. 2. Gram negative olu pneumonia (fpc acquired). 3. Physical debility. 4. Altered mentation secondary to metabolic encephalopathy from sepsis. 5. Luhrr-lv-gdyeoqo respiratory failure. 6. Chronic respiratory failure (history of tracheostomy tube placement). 7. End-stage renal disease. 8. Recent G-tube replacement. 9. Urinary tract infection. PLAN: 1. Follow blood and urine cultures. 2. Follow sputum culture. 3. Continue intravenous antibiotics to cover Gram negative olu bacterial species. 4. Consult Nephrology for hemodialysis. 5. Nutritional support with tube feeding. I spent 75 minutes in the care of the patient. MD NATALIO Kwon/CONOR /[id number]
--- NOTE | 2018-12-14 22:26 | Progress Note ---
DATE: 12/14/2018 Pulmonary Medicine Progress Note SUBJECTIVE: Ms. Zaragoza was seen and examined at bedside. She went for hemodialysis. She is intubated via tracheostomy. Ventilator support, minimum ventilation 10 liters per minute. She is now awake, but she refuses to eat. REVIEW OF SYSTEMS: No headaches, no bleeding. OBJECTIVE: VITAL SIGNS: Afebrile. Vital signs noted per the chart record. GENERAL: No acute distress, alert and calm, on the ventilator. Awake. HEENT: Normocephalic and atraumatic. NECK: Supple. Throat midline. LUNGS: Bilateral air entry, rare rhonchi. CARDIOVASCULAR: S1 and S2. No murmurs, rubs, or gallops. ABDOMEN: Soft and nontender. EXTREMITIES: No clubbing, no cyanosis, no edema. INTEGUMENT: No rash. No purpura. LABORATORY DATA: White count decreased to 12, hematocrit 24, platelets 532. Potassium 4.1, BUN 40, creatinine 2.5. Calcium 10.3, albumin 2.4. IMPRESSION AND PLAN: 1. Acute respiratory failure, on ventilator, but better, less distressed. 2. Chronic respiratory failure, status post tracheostomy. 3. Dysphagia, status post feeding tube placement. 4. Feeding tube displacement, status post replacement by IR. 5. Pneumonia. 6. History of bariatric surgery redo and complications thereof. We will start weaning by ventilator again. Slow wean protocol. We convinced the patient to try go back on tube feeds at this time. Packed red blood cells transfusions today. Continue dialysis per Renal expert. We will follow along closely. Continue antibiotics and followup cultures for the pneumonia. MD SUZIE Wells/MODL /[id number]
[2018-12-15] VITALS (23 sets, daily range): BP systolic 122–155; BP diastolic 50–79
[2018-12-15] MEDS: AZTREONAM IV SCH ×3 (01:26→18:00)
[2018-12-15] MEDS: SODIUM CHLORIDE 0.9% IV SCH ×3 (01:26→18:00)
[2018-12-15] MEDS: ALBUTEROL SULF 0.083% NEB SOLN 3 ML NEB NEB SCH ×5 (02:55→19:45)
[2018-12-15] MEDS: IPRATROPIUM BROMIDE 0.02% 2.5 ML NEB NEB SCH ×5 (02:55→19:45)
[2018-12-15 05:11] LABS: BASOPHILS # (AUTO) 0.1 (0.0-0.1); BASOPHILS % 0.9 % (0.0-1.0); EOSINOPHILS # (AUTO) 0.4 (0.0-0.4); EOSINOPHILS % 2.2 % (0.0-6.0); HEMATOCRIT 29.2 % (34.2-44.1); HEMOGLOBIN 8.7 g/dL (12.0-16.0); LYMPHOCYTES # (AUTO) 0.7 (1.0-3.2); LYMPHOCYTES % 4.2 % (18.0-39.1); MEAN CORPUSCULAR HEMOGLOBIN 25.8 pg (28-32); MEAN CORPUSCULAR HGB CONC 29.8 g/dL (31-35); MEAN CORPUSCULAR VOLUME 86.6 fL (81-99); MONOCYTES # (AUTO) 1.2 (0.2-0.8); MONOCYTES % 7.4 % (4.4-11.3); NEUTROPHILS # (AUTO) 13.6 (2.1-6.9); NEUTROPHILS % 84.7 % (38.7-80.0); PLATELET COUNT 431 x10e3/uL (140-360); RED BLOOD COUNT 3.37 x10e6/uL (3.6-5.1); RED CELL DISTRIBUTION WIDTH 17.5 % (11.7-14.4)
[2018-12-15 05:31] LABS: ALBUMIN 2.3 g/dL (3.5-5.0); ALBUMIN/GLOBULIN RATIO 0.5 (0.8-2.0); ANION GAP 16.7 mmol/L (8-16); CALCIUM 9.8 mg/dL (8.4-10.2); CREATININE, SERUM 1.66 mg/dL (0.57-1.11); MAGNESIUM 1.7 MG/DL (1.3-2.1); PHOSPHORUS 3.5 MG/DL (2.3-4.7); POTASSIUM 3.7 mmol/L (3.5-5.1)
--- NOTE | 2018-12-15 06:51 | Diagnostic Imaging Report ---
EXAMINATION: CHEST SINGLE (PORTABLE) INDICATION: ^pneumomia ^[id number] ^0530 ^Y COMPARISON: 12/14/2018 FINDINGS: AP view TUBES and LINES: Stable tracheostomy tube and right internal jugular dialysis catheter. LUNGS: Lungs are well inflated. Pulmonary vascular congestion and mild interstitial edema. PLEURA: No pleural effusion or pneumothorax. HEART AND MEDIASTINUM: The cardiomediastinal silhouette is prominent. BONES AND SOFT TISSUES: No acute osseous lesion. Soft tissues are unremarkable. UPPER ABDOMEN: No free air under the diaphragm. IMPRESSION: Pulmonary vascular congestion and mild interstitial edema. Underlying pneumonia, especially in the perihilar regions cannot be excluded. Signed by: Dr. Yury Hilton MD on 12/15/2018 6:48 AM
[2018-12-15] MEDS: INSULIN LISPRO 100 UNIT/1 ML 3ML VIAL SQ SCH ×4 (07:30→21:53)
--- NOTE | 2018-12-15 11:45 | NUR ---
Dr. Mccoy here to see patient and wrote new orders
[2018-12-15] MEDS: PHENAZOPYRIDINE HCL 100 MG TAB PO SCH ×2 (13:00→18:00)
--- NOTE | 2018-12-15 13:00 | NUR ---
Dr. Farias here to see patient. Patient still continues to have thick, pale yellow secretions and requiring to be suctioned every 2 hours. at bedside.
--- NOTE | 2018-12-15 13:00 | NUR ---
Dr. Matthews here to see patient
--- NOTE | 2018-12-15 14:00 | NUR ---
Dr. Farias also wrote new orders regarding IR and CT of abdomen and chest and he spoke to about procedures.
--- NOTE | 2018-12-15 15:03 | NUR ---
I spoke to Messi at [facility] to schedule patient for dialysis in am on 12/16/18.
--- NOTE | 2018-12-15 18:09 | Progress Note ---
DATE: 12/15/2018 Pulmonary Medicine Progress Note SUBJECTIVE: Ms. Zaragoza was seen and examined at bedside. She is on Nepro 1.8 at 40 mL/h by feeding tube. The patient is on ventilator at this time. She was given pressure support as low as 12, but she tired on SIMV. She is tolerating SIMV with 18 pressure support at this time. She is as usual awake in bed. REVIEW OF SYSTEMS: No headaches, no chest pain. OBJECTIVE: VITAL SIGNS: Afebrile, vital signs noted per the chart record. GENERAL: In no acute distress, alert, slightly anxious, awake, on ventilator. HEENT: Normocephalic, atraumatic. Trach in place. LUNGS: Bilateral air entry, rare rhonchi. CARDIOVASCULAR: S1, S2. No murmurs, rubs, or gallops. ABDOMEN: Soft, nontender. EXTREMITIES: No clubbing, no cyanosis, there is no edema. INTEGUMENT: No rash. No purpura. LABORATORY DATA: Potassium 3.7, BUN 23, creatinine 0.6. White count , hematocrit 29, platelets 431. IMPRESSION AND PLAN: 1. Acute respiratory failure, on ventilator. 2. Chronic respiratory failure, status post tracheostomy. 3. Anxiety component. 4. Pneumonia. 5. History of complicated sleeve gastrectomy with complication of gastrointestinal leak and subdiaphragmatic abscess. 6. History of pleural effusions. I discussed with radiology team. Hopeful for high NG tube with contrast loading into GI tract. Subsequently, we hope for CT of chest and abdomen to reassess the pneumonia and the GI leak symptom that the patient had. Patient, furthermore, reportedly was eating small amounts at her previous facility while on the ventilator, so we will get our own speech therapist to evaluate the safety of this as this may be the patient's optimized respiratory condition for now. Continue treatment for pneumonia in the meantime. Follow up closely. MD SUZIE Wells/CONOR /[id number]
[2018-12-15] MEDS: CLONAZEPAM 0.5 MG TAB PO PRN (21:37)
[2018-12-15] MEDS: QUETIAPINE FUMARATE 25 MG TAB PO SCH (21:37)
[2018-12-16] VITALS (22 sets, daily range): BP systolic 120–155; BP diastolic 61–96
[2018-12-16] MEDS: AZTREONAM IV SCH ×3 (01:51→17:08)
[2018-12-16] MEDS: SODIUM CHLORIDE 0.9% IV SCH ×3 (01:51→17:08)
--- NOTE | 2018-12-16 03:42 | Consultation ---
DATE OF CONSULTATION: 12/14/2018 This is a [id number], who came in to have a PEG tube, but the patient had respiratory distress. Currently, back on the vent. She is ESRD, on hemodialysis Sunday, Sunday, Sunday. REASON FOR CONSULT: To continue her dialysis. HISTORY OF PRESENT ILLNESS: The patient goes to for dialysis and she has inhouse dialysis, but does not know who her club attendant is. PAST MEDICAL HISTORY: 1. Type 2 diabetes mellitus. 2. Hypertension. 3. Sleep apnea. 4. Obesity. 5. History of band surgery and sleeve gastrectomy with complications. 6. ESRD. 7. Atrial fibrillation. 8. Tracheostomy. ALLERGIES: BACTRIM AND ADHESIVE. FAMILY HISTORY: Noncontributory. SOCIAL HISTORY: No smoking, no alcohol, no drugs. REVIEW OF SYSTEMS: On the vent. Denies any nausea, vomiting, or constipation. Denies any diarrhea. She is aware she is in the hospital. Answers questions with her head. Otherwise, no other issues. PHYSICAL EXAMINATION: GENERAL: Alert, following commands. HEENT: Pupils equal and reactive to light and accommodation. NECK: No JVD. No bruits. LUNGS: Rales at the bases with expiratory wheezes. HEART: Regular No S3. No S4. ABDOMEN: splenomegaly. EXTREMITIES: No clubbing, no cyanosis, no edema. LABORATORY DATA: White count 18, hematocrit 26. Albumin 2.6. Chest x-ray, left moderate perihilar opacity. ASSESSMENT AND PLAN: 1. End-stage renal disease, we will schedule the patient for dialysis today. 2. Acute respiratory failure, status post tracheostomy, now on the ventilator. 3. Pneumonia, acquired prior to hospitalization. IV antibiotics started. 4. History of peritonitis subdiaphragmatic abscess, status post GI stenting. 5. History of atrial fibrillation. 6. Type 2 diabetes mellitus. We will monitor her glucose. Felipe Yepez MD MA/CONOR /[id number]
[2018-12-16] MEDS: IPRATROPIUM BROMIDE 0.02% 2.5 ML NEB NEB SCH ×7 (03:45→23:00)
[2018-12-16] MEDS: ALBUTEROL SULF 0.083% NEB SOLN 3 ML NEB NEB SCH ×7 (03:45→23:00)
[2018-12-16 04:57] LABS: BASOPHILS # (AUTO) 0.1 (0.0-0.1); BASOPHILS % 0.6 % (0.0-1.0); EOSINOPHILS # (AUTO) 0.3 (0.0-0.4); EOSINOPHILS % 1.8 % (0.0-6.0); HEMATOCRIT 28.8 % (34.2-44.1); HEMOGLOBIN 8.6 g/dL (12.0-16.0); LYMPHOCYTES # (AUTO) 1.2 (1.0-3.2); LYMPHOCYTES % 6.2 % (18.0-39.1); MEAN CORPUSCULAR HEMOGLOBIN 25.8 pg (28-32); MEAN CORPUSCULAR HGB CONC 29.9 g/dL (31-35); MEAN CORPUSCULAR VOLUME 86.5 fL (81-99); MONOCYTES # (AUTO) 1.5 (0.2-0.8); NEUTROPHILS # (AUTO) 15.6 (2.1-6.9); NEUTROPHILS % 82.6 % (38.7-80.0); PLATELET COUNT 404 x10e3/uL (140-360); RED BLOOD COUNT 3.33 x10e6/uL (3.6-5.1); RED CELL DISTRIBUTION WIDTH 17.5 % (11.7-14.4)
[2018-12-16 05:21] LABS: ALBUMIN 2.3 g/dL (3.5-5.0); ALBUMIN/GLOBULIN RATIO 0.5 (0.8-2.0); ANION GAP 13.2 mmol/L (8-16); CREATININE, SERUM 1.87 mg/dL (0.57-1.11); POTASSIUM 3.2 mmol/L (3.5-5.1)
--- NOTE | 2018-12-16 06:27 | Diagnostic Imaging Report ---
EXAMINATION: CHEST SINGLE (PORTABLE) INDICATION: ^pneumonia and on ventilator ^[id number] ^0547 ^Y COMPARISON: 12/15/2018 FINDINGS: AP view TUBES and LINES: Stable tracheostomy tube and right internal jugular dialysis catheter. LUNGS: Lungs are well inflated. Central vascular congestion. No definite focal consolidation. PLEURA: No significant pleural effusion or pneumothorax. HEART AND MEDIASTINUM: The cardiomediastinal silhouette is unremarkable. BONES AND SOFT TISSUES: No acute osseous lesion. Soft tissues are unremarkable. UPPER ABDOMEN: No free air under the diaphragm. IMPRESSION: Pulmonary vascular congestion. No definite focal consolidation. Signed by: Dr. Yury Hilton MD on 12/16/2018 6:24 AM
--- NOTE | 2018-12-16 07:12 | Diagnostic Imaging Report ---
ADDENDUM #1 Addendum: A total of two images were obtained. Signed by: Dr. Hayes Bartholomew DO on 12/24/2018 7:40 AM ORIGINAL REPORT Exam: Replacement of jejunostomy tube dated 12/13/2018 at 1654 hours History: Previous J-tube not functional Comparison: 12/12/2018 Findings: The pigtail catheter previously replaced in the jejunum was injected with contrast material confirming luminal location. Sterile preparation was accomplished. Local anesthesia with 1% Xylocaine was accomplished. A 0.035 " Amplatz superstiff wire was advanced through the existing pigtail catheter. A new 18 Arabic Lopez catheter was placed over the wire into the jejunum. Retention balloon was inflated and noted not to occlude the lumen of the jejunum. This catheter was secured to the skin. Fluoroscopy time: 1.5 minutes Total dose: 713.2 cGycm2 Impression: Successful fluoroscopic jejunostomy tube exchange. Signed by: Dr. Hayes Bartholomew DO on 12/16/2018 7:09 AM
[2018-12-16] MEDS: INSULIN LISPRO 100 UNIT/1 ML 3ML VIAL SQ SCH ×4 (07:30→21:05)
[2018-12-16 07:32] LABS: LYMPHOCYTES % (MANUAL) 11 % (19-48); MONOCYTES % (MANUAL) 10 % (3.4-9.0); NEUTROPHILS % (MANUAL) 79 % (40-74)
[2018-12-16 07:36] LABS: ANISOCYTOSIS MODERATE; HYPOCHROMASIA SLIGHT; PLATELET ESTIMATE ADEQUATE; PLATELET MORPHOLOGY COMMENT NORMAL; RBC MORPHOLOGY COMMENT ABNORMAL
[2018-12-16] MEDS: CLONAZEPAM 0.5 MG TAB PO PRN ×2 (07:40→20:40)
--- NOTE | 2018-12-16 07:41 | NUR ---
Patient c/o severe anxiety, anti-anxiety medication administered.
[2018-12-16] MEDS: PHENAZOPYRIDINE HCL 100 MG TAB PO SCH ×3 (08:29→17:08)
--- NOTE | 2018-12-16 09:45 | NUR ---
Spoke with Dr Farias regarding, home cough and antidepressant medications; orders rec'd.
[2018-12-16] MEDS: GUAIFENESIN 200 MG/10 ML UDC JT PRN (10:22)
[2018-12-16] MEDS: ESCITALOPRAM OXALATE 10 MG TAB JT SCH (10:38)
[2018-12-16] MEDS: PANTOPRAZOLE 40 MG 10ML VIAL IV SCH (11:46)
[2018-12-16] MEDS: BUPROPION HCL 100 MG TAB JT SCH ×2 (11:46→16:32)
[2018-12-16] MEDS: FUROSEMIDE INJ 10 MG/ML 4 ML VIAL IV SCH (11:46)
[2018-12-16] MEDS: EPOETIN ALFA 10000 UNIT/ML VIAL SC SCH (15:16)
--- NOTE | 2018-12-16 15:39 | NUR ---
WOUND CARE CONSULTATION- INITIAL EVALUATION Patient admitted from [facility] to ER for G-Tube placement- admitted for PNA, Debility and UTI. HX: ESRD, DM type2, Resp Failure, A-Fib, Dysphagia, G-Tube Placement, Depression, Anxiety, Hypothyroidism. ALLERGY: Sulfa LABS: WBC18.93 HGB8.6 HCT28.8 NEUT%79 RAI552 ALB2.3 Wound Care Consulted for evaluation of Sacral Stage II Pressure Ulcer Present On Admission. PATIENT VISIT: Phoenix Score 13 Moderate PUP Active Alternating Pressure Air Mattress. Patient able to turn with 1 person assist. Presents with healing ulcer to right gluteal area. Wound Assessment performed and documented. Appears to be almost 100% epithelialized. No drainage, no redness, no swelling, no tenderness to site. Healing well with slight indentation. Bilateral Heels Ko Olina and Intact. No Pressure Ulcers Identified to Cb. Heels. IMPRESSION: Right Sacro-Gluteal- Healing Stage II Pressure Ulcer, Present On Admission. RECOMMENDATION: 1. Right Sacro-Gluteal- Stage II Pressure Ulcer, Present on Admission: - Cleanse wound with Normal Saline and 4x4 Gauze Daily -Apply Venelex and Allevyn Sacrum Foam Dressing Daily 2. Continue Alternating Pressure Air Mattress 3. Turn and Reposition Every 2 Hours 4. Continue Bilateral Heel Protectors/ Offload Heels with Pillows while in bed. Thank you for consulting with Wound Care. Addendum: 12/16/18 at 1548 by Jimi Bower RN Amended: Links added.
[2018-12-16] MEDS ORDERED: BUPROPION HCL 100 MG TAB JT SCH (17:00)
--- NOTE | 2018-12-16 17:50 | Progress Note ---
DATE: 12/16/2018 Pulmonary Medicine Progress Note SUBJECTIVE: Ms. Zaragoza was seen and examined at bedside. Her was here at bedside in the room. We talked about the generator wean. The patient was placed on pressure support of 20 on SIMV as she failed 18 due to tachypnea. I discussed with the the failure to wean, considerations for bronchoscopy and he agrees. The patient is otherwise awake, on ventilator. The patient at this time also on consideration for the radiographs that have not been done, although planning is being done. REVIEW OF SYSTEMS: No headaches, no bleeding noted. OBJECTIVE: VITAL SIGNS: Afebrile, vital signs noted per the chart record. GENERAL: No acute distress, alert, on ventilator. HEENT: Normocephalic, atraumatic. NECK: Supple. Throat midline. LUNGS: Bilateral air entry, few rhonchi. CARDIOVASCULAR: S1, S2. No murmurs, rubs, or gallops. ABDOMEN: Soft, nontender. EXTREMITIES: No clubbing, no cyanosis, there is no edema. INTEGUMENT: No rash. No purpura. LABORATORY DATA: 3.2 potassium, 41 BUN, 1.9 creatinine. 19 white count, 28 hematocrit, 404 platelets. IMPRESSION AND PLAN: 1. Acute respiratory failure, on ventilator. 2. Chronic respiratory failure, seems refractory to weaning measures. 3. Dysphagia. 4. End-stage renal disease. 5. Recent complications from bariatric surgery with gastrointestinal leak and subdiaphragmatic abscess formation. 6. History of pneumonia and pleural effusion. This is time for the recent pneumonia recurrence, we wish to get the CT scan and this is being planned out for to see for upper gastrointestinal tract leakage. The patient should continue antibiotics at this time. Bronchoscopy to be done for the difficulty weaning. The patient furthermore for routine dialysis per renal expert. Speech evaluation is being done as the patient was recently able to eat, although small amounts with modifications despite being on ventilator. We will follow along closely. MD SUZIE Wells/MODL /[id number]
--- NOTE | 2018-12-16 19:00 | NUR ---
Report received. Assumed care. Assessment done. See interventions.
--- NOTE | 2018-12-16 19:30 | NUR ---
Dr. Hernandez here. Orders given.
[2018-12-16] MEDS ORDERED: POTASSIUM CHLORIDE 20MEQ/15ML UDC NG ONE (19:45)
--- NOTE | 2018-12-16 19:45 | NUR ---
16 FR rosenberg inserted without difficulty as ordered.
[2018-12-16] MEDS: CEFEPIME 2 GM/NS 0.9% 100 ML 100 ML IV PRN (20:41)
[2018-12-16] MEDS: QUETIAPINE FUMARATE 25 MG TAB PO SCH (20:49)
[2018-12-17] VITALS (25 sets, daily range): BP systolic 84–156; BP diastolic 53–109
[2018-12-17] MEDS: AZTREONAM IV SCH ×3 (02:00→16:40)
[2018-12-17] MEDS: SODIUM CHLORIDE 0.9% IV SCH ×3 (02:00→16:40)
--- NOTE | 2018-12-17 02:00 | NUR ---
Complete bed bath given. Bed linens changed. Cleaned for mod loose brown stool.
[2018-12-17] MEDS: ALBUTEROL SULF 0.083% NEB SOLN 3 ML NEB NEB SCH ×2 (03:00→07:30)
[2018-12-17] MEDS: IPRATROPIUM BROMIDE 0.02% 2.5 ML NEB NEB SCH ×6 (03:00→23:15)
[2018-12-17] MEDS: INSULIN LISPRO 100 UNIT/1 ML 3ML VIAL SQ SCH ×4 (08:43→21:24)
[2018-12-17] MEDS: BALSAM PERU/CASTOR OIL 60 GM OINT...G. TP SCH (08:46)
[2018-12-17] MEDS ORDERED: ESCITALOPRAM OXALATE 10 MG TAB JT SCH (09:00)
[2018-12-17] MEDS: BUPROPION HCL 100 MG TAB JT SCH ×2 (09:10→16:40)
[2018-12-17] MEDS: PHENAZOPYRIDINE HCL 100 MG TAB PO SCH ×3 (09:10→16:40)
[2018-12-17] MEDS: FUROSEMIDE INJ 10 MG/ML 4 ML VIAL IV SCH (09:10)
[2018-12-17] MEDS: PANTOPRAZOLE 40 MG 10ML VIAL IV SCH (09:10)
[2018-12-17] MEDS: ESCITALOPRAM OXALATE 10 MG TAB JT SCH (09:10)
[2018-12-17] MEDS ORDERED: LIDOCAINE HCL 4% 50 ML BTL ONE (09:58)
[2018-12-17] MEDS ORDERED: LIDOCAINE JELLY 2% 10ML URO-JET ONE (09:58)
--- NOTE | 2018-12-17 10:37 | NUR ---
ST NOTE: Pt scheduled for bronchoscopy today at 11:00, awaiting MBS orders and results of bronchoscopy. Will complete MBS on 12/18/18 if clinically appropriate. Handoff to MAYDA Pascual
--- NOTE | 2018-12-17 14:24 | Progress Note ---
DATE: 12/17/2018 Pulmonary Medicine Progress Note ADDENDUM: ASSESSMENT AND PLAN: 1. Failure to wean. 2. 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 3. End-stage renal disease. 4. Pneumonia. 5. History of complicated bariatric surgeon. Modify bronchodilators due to tachycardia. I discussed with the patient's the findings. The more she can be up on her feet, the tracheostomy can probably align better and assist breathing with less airways resistance. The patient will continue treatment for pneumonia. GI and Interventional Radiology are following to see if any more studies are needed regarding history of gastrointestinal leakage. We will follow along closely. Speech therapy to consider MBS based on other findings and how the patient does. Continue ventilator support. MD SUZIE Wells/MODL /[id number]
[2018-12-17] MEDS: CLONAZEPAM 0.5 MG TAB PO PRN (16:39)
--- NOTE | 2018-12-17 18:31 | Operative Report ---
DATE OF PROCEDURE: 12/17/2018 SURGEON: Bill Farias MD PROCEDURE: Flexible fiberoptic bronchoscopy. INDICATION: Airways inspection, failure to wean, respiratory failure. INFORMED CONSENT: From . ANESTHESIA: Provided by Anesthesiology service. COMPLICATIONS: None. ESTIMATED BLOOD LOSS: None. OPERATIVE FINDINGS: Ms. Zaragoza had bronchoscope inserted into her tracheostomy tube. Airways were inspected. There were moderate amount of airway secretions, that were thick and white purulence. These were washed and suctioned out. The tracheobronchial tree had normal configuration. It was noted that the trachea though had very easily collapsible larry above the tracheostomy tube cannula, which was set at 10 cm. On the outlet for the tracheostomy tube, there was a 30% to 50% obstruction seen on vigorous breathing or coughing. Otherwise, the tracheostomy tube inner cannula obstruction was only mildly closed at 10% to 30% maximum on regular tidal breathing. The inner cannula was advanced from 10 cm to 12 cm water with similar results that was left secured at 12 cm of depth with this Bivona tracheostomy. Subsequent to this, the procedure was terminated and the patient was left to recover on ventilator and with anesthesia. SUMMARY: 1. Tracheomalacia, mildly interfering with tracheostomy cannula outlet from 10 to 12 cm of depth. 2. Moderate airways purulence, status post washings and clearance. RECOMMENDATION: Continue tracheostomy tube at depth of 12 cm. Continue to toilet airway secretions and to treat infection. Follow bronchial washes. Bill Farias MD GMN/MODL /[id number]
[2018-12-17] MEDS ORDERED: PROPOFOL IV EMULSION 10 MG/ML 20 ML VIAL ONE (19:19)
[2018-12-17] MEDS ORDERED: KETAMINE HCL INJ 50 MG/ML 10 ML VIAL ONE (19:30)
[2018-12-17] MEDS ORDERED: MIDAZOLAM HCL 2 MG/2 ML VIAL ONE (19:30)
[2018-12-18] VITALS (25 sets, daily range): BP systolic 82–169; BP diastolic 56–88
[2018-12-18] MEDS: LORAZEPAM 0.5 MG TAB PO PRN ×3 (02:15→12:58)
[2018-12-18] MEDS: AZTREONAM IV SCH ×3 (02:18→17:28)
[2018-12-18] MEDS: SODIUM CHLORIDE 0.9% IV SCH ×3 (02:18→17:28)
[2018-12-18] MEDS: IPRATROPIUM BROMIDE 0.02% 2.5 ML NEB NEB SCH ×6 (02:35→23:00)
--- NOTE | 2018-12-18 03:05 | Consultation ---
DATE OF CONSULTATION: 12/17/2018 Psychiatric Consultation. HISTORY OF PRESENT ILLNESS: The patient is a 68-year-old female, admitted to the hospital for anxiety, chronic respiratory failure, end-stage renal disease, and pneumonia. Psychiatric consultation is called to evaluate the patient's mood. As per the medical record, the patient was transferred [facility] tube placement. She developed respiratory distress and he was transferred to the ER. Her medical history includes type 2 diabetes, hypertensive heart disease, end-stage renal disease, physical debility, history of atrial fibrillation, chronic respiratory failure, depression, anxiety, and hypothyroidism. Upon evaluation, the patient is found to be lying in the bed with her in the room. The patient has a trach. She is unable to answer question. She is minimally cooperative. She is not agitated or combative at this time. As per the , the patient has a long history of depression and anxiety for about 8 to 10 years, though she has never seen a psychiatrist. She was given medication by primary care doctor. He relates that patient has been depressed and anxious. She has intermittent sleep problem. She is eating okay. She does not have any hallucinations. She has never expressed suicidal ideation, but she did express that she wanted to as per the . PAST PSYCHIATRIC HISTORY: The patient has a history of depression and anxiety. She does not have any past suicide attempts. She does not drink alcohol or use any drugs. FAMILY HISTORY: None as per . SOCIAL HISTORY: The patient was living with her . MENTAL STATUS EXAMINATION: The patient is an elderly female. She is alert, awake, and oriented to self. Her mood appears to be depressed. Affect is improving with mood. Psychomotor state is retarded. She is not able to answer question and assessment is limited. CURRENT MEDICATIONS: 1. Aztreonam. 2. Wellbutrin 150 mg p.o. b.i.d. 3. Furosemide 40 mg p.o. daily. 4. Pantoprazole. 5. Lexapro 20 mg p.o. daily. 6. Pyridium. 7. Insulin. 8. Ipratropium bromide. 9. . 10. Cefepime. 11. Klonopin 0.5 mg p.o. b.i.d. p.r.n. 12. Epoetin. 13. Guaifenesin. 14. Albuterol. CURRENT LABS: WBC 18.93, RBC , hemoglobin 8.6, hematocrit 28.8, and platelets 404. Chemistry; sodium is 137, potassium 3.2, chloride 101, CO2 of 26, BUN 41, creatinine 1.87, AST 19, and ALT 18. ASSESSMENT: Major depressive disorder, recurrent, moderate. PLAN: 1. Continue Wellbutrin 150 mg p.o. b.i.d. 2. Discontinue Lexapro. 3. Add Zoloft 50 mg p.o. daily. 4. Add trazodone 50 mg p.o. at bedtime p.r.n. for insomnia. 5. Discontinue Klonopin p.r.n. 6. Add Ativan p.r.n. 7. . 8. Monitor for mood. 9. Supportive therapy. Thank you for this consultation. Dictated by Ava Wright PA-C Alejandro Liu MD QTV/MODL /[id number]
[2018-12-18 05:15] LABS: BASOPHILS # (AUTO) 0.1 (0.0-0.1); BASOPHILS % 0.5 % (0.0-1.0); EOSINOPHILS # (AUTO) 0.3 (0.0-0.4); EOSINOPHILS % 0.9 % (0.0-6.0); HEMOGLOBIN 9.3 g/dL (12.0-16.0); LYMPHOCYTES # (AUTO) 1.5 (1.0-3.2); LYMPHOCYTES % 5.4 % (18.0-39.1); MEAN CORPUSCULAR HEMOGLOBIN 25.9 pg (28-32); MEAN CORPUSCULAR VOLUME 86.4 fL (81-99); MONOCYTES # (AUTO) 1.6 (0.2-0.8); NEUTROPHILS # (AUTO) 23.3 (2.1-6.9); NEUTROPHILS % 86.3 % (38.7-80.0); PLATELET COUNT 446 x10e3/uL (140-360); RED BLOOD COUNT 3.59 x10e6/uL (3.6-5.1); RED CELL DISTRIBUTION WIDTH 17.8 % (11.7-14.4)
[2018-12-18 05:46] LABS: ANION GAP 13.8 mmol/L (8-16); CALCIUM 10.7 mg/dL (8.4-10.2); CREATININE, SERUM 2.12 mg/dL (0.57-1.11); MAGNESIUM 1.9 MG/DL (1.3-2.1); PHOSPHORUS 3.2 MG/DL (2.3-4.7); POTASSIUM 3.8 mmol/L (3.5-5.1)
--- NOTE | 2018-12-18 07:00 | NUR ---
BEDSIDE REPORT RECVD. ASSESSMENT COMPLETED AND RECORDED. VSS. PT NODS TO UNDERSTANDING OF CURRENT POC.
[2018-12-18 07:49] LABS: EOSINOPHILS % (MANUAL) 2 % (0-7); LYMPHOCYTES % (MANUAL) 13 % (19-48); MONOCYTES % (MANUAL) 8 % (3.4-9.0); NEUTROPHILS % (MANUAL) 77 % (40-74)
[2018-12-18 07:50] LABS: ANISOCYTOSIS SLIGHT; PLATELET ESTIMATE ADEQUATE; PLATELET MORPHOLOGY COMMENT NORMAL; RBC MORPHOLOGY COMMENT ABNORMAL
--- NOTE | 2018-12-18 08:00 | NUR ---
ARRIVED, UPDATED HIM ON STATUS AND POC.
[2018-12-18] MEDS: BUPROPION HCL 100 MG TAB JT SCH ×2 (08:46→17:28)
[2018-12-18] MEDS: PHENAZOPYRIDINE HCL 100 MG TAB PO SCH ×3 (08:46→17:28)
[2018-12-18] MEDS: PANTOPRAZOLE 40 MG 10ML VIAL IV SCH (08:46)
[2018-12-18] MEDS: BALSAM PERU/CASTOR OIL 60 GM OINT...G. TP SCH (08:46)
[2018-12-18] MEDS: FUROSEMIDE INJ 10 MG/ML 4 ML VIAL IV SCH (08:46)
[2018-12-18] MEDS: SERTRALINE HCL 50 MG TAB JT SCH (08:46)
[2018-12-18] MEDS: QUETIAPINE FUMARATE 25 MG TAB PO PRN ×2 (08:50→21:13)
[2018-12-18] MEDS: INSULIN LISPRO 100 UNIT/1 ML 3ML VIAL SQ SCH ×3 (08:58→17:37)
--- NOTE | 2018-12-18 09:10 | NUR ---
CALLED DR PAYNE REGARDING PROCEDURE OF NGT INSERTION BY IR AND CT ABD AND PELVIS, CLARIFIED ORDER WITH DR PAYNE AND ASKED HIM TO CALL RADIOLOGY DOCTOR, HE STATED HE DID AND ORDER WAS CONFIRMED.
--- NOTE | 2018-12-18 09:10 | NUR ---
ST NOTE: Pt not appropriate for MBS today, she is being dialized and has another procedure scheduled for late this afternoon, will continue to follow for MBS readiness. Handoff to MAYDA Singer
--- NOTE | 2018-12-18 10:00 | NUR ---
Pt unavailable at this time. Pt's dialysis nurse performing procedure bedside. I will follow up as able. CAROL ANN PEREZ School Counselor Spiritual Care Department O: [phone] Pager: [phone] ([phone] number calling from)
[2018-12-18] MEDS ORDERED: HEPARIN SOD (PORCINE) 1000 UNIT/ML SDV IV PRN (13:45)
[2018-12-18] MEDS ORDERED: SODIUM CHLORIDE 0.9% 1000ML 2,000 ML IV PRN (13:45)
[2018-12-18] MEDS ORDERED: SODIUM CHLORIDE 0.9% 250ML 500 ML IV PRN (13:45)
[2018-12-18] MEDS: EPOETIN ALFA 10000 UNIT/ML VIAL SC SCH (14:36)
[2018-12-18] MEDS ORDERED: DIATRIZOATE MEGL/DIATRIZOA SOD 30 ML BTL PO ONE ×2 (15:15→16:57)
--- NOTE | 2018-12-18 15:46 | NUR ---
Nutrition Intervention Note RD Recommendation(s) for Physician: -Continue continuous TF of Nepro @40mL/hr, providing 1725kcal, 78g protein, 700mL H2O. -Water flushes per MD discretion -Check daily labs, weight, GI tolerance Plan of Care: RD following, monitoring for tolerance and adequacy Nutrition reason for involvement: Follow up RD Assessment (12/18) Pt was discussed during AM rounds. HD today. Trach to vent. CT abd/pel scheduled for today. Nepro running at goal rate of 40mL/hr. Per MAYDA Singer, TF was well tolerated with no gastric residual. Will continue to monitor and follow. (12/14) Initial encounter with patient. Pt is NPO and is to receive Nepro at 40ml/hr via jejunostomy tube which will provide 697ml of free H2O, 1728 kcals, and 77.7g of protein. Pt denies any nausea, vomiting or diarrhea. Pt has dental implants. Jejunostomy placement has been confirmed. Principal Problems/Diagnoses: chronic respiratory failure PMH: subdiaphragmatic abscess, exploratory laparotomy, T2DM, oropharyngeal dysphagia, stage 2 sacral wound, CKD stage 5 on HD, Complications from lap band surgery, peritonitis IVF: None GI: Normal BM Skin: stage 2 sacral wound Labs: (12/18/2018) BUN 52 H, creatinine 2.12 H, Glucose 184 H, Ca 10.7 H Meds: epogen, lasix, protonix Malnutrition Evaluation (12/14/2018) The patient does not meet criteria for a specified degree of malnutrition at this time. Will re-evaluate at follow-up as appropriate. Diet Education Needs Assessment: Diet education not indicated, patient is NPO except for EN Ht:65 Wt:146.5lbs; 140lbs BMI:24.4kg/m2 IBW:125lbs Estimated Nutritional Needs: 1664 - 1997 kcals at 25-30 kcals/kg/bw 67-98g/kg/bw Nutrition Prescription (Diet Order): Nepro @40mL/hr Food Allergies: no known food allergies Diet Adequacy: Meeting calorie needs, Meeting protein needs, Meeting fluid needs Tolerance: Tolerating Nutrition Care Level: low Nutrition Diagnosis: Swallowing difficulty related to chronic illness as evidenced by pt requiring EN as main source of nutrients. Goal:Patient will meet 75-100% of estimated needs by follow up Progress: Goal met Interventions: Composition, Rate, Route Monitoring/Evaluation: Total energy intake, Total protein intake, Formula/Solution, Weight change. Allie Sabillon, MS, RD, LD
[2018-12-18] MEDS ORDERED: LIDOCAINE HCL 2% JELLY 5 ML TUBE ONE (16:03)
[2018-12-18] MEDS ORDERED: LIDOCAINE HCL 1% LOCAL INJ 20 ML VIAL ONE (16:03)
--- NOTE | 2018-12-18 17:00 | NUR ---
procedure by ir being done at bedside.
--- NOTE | 2018-12-18 18:28 | Diagnostic Imaging Report ---
Exam: Fluoroscopic placement of nasogastric tube, KUB 3 views, chest X ray 1 view. Clinical History: Nasogastric tube placement Comparison: Chest radiograph 12/16/2018 Special Effects Specialist: Lee Gu MD Sedation: Lidocaine jelly Complications: None. Findings: A 45 cm Kumpe catheter was advanced into the nasal cavity after administration lidocaine jelly into the left nostril. The catheter was advanced along with a glidewire into the GE junction with fluoroscopic guidance. Subsequent KUB demonstrates that the nasogastric tube terminates in the expected location of the GE junction. Then, the existing Kumpe catheter was exchanged over the glidewire for a 65 cm Kumpe catheter with fluoroscopic guidance. Subsequent KUB demonstrates advancement of the nasogastric tube which appears to terminate in the distal stomach. Subsequent contrast injection demonstrates opacification of the proximal small bowel loops with the tube tip within the duodenum, confirming satisfactory placement. No acute osseous abnormality. Nonobstructive bowel gas pattern. Calcifications projecting over the right upper quadrant could represent gallstones. Jejunostomy catheter projects over the left abdomen. Chest radiograph demonstrates stable tracheostomy and right IJ tunneled dialysis catheter. There is pulmonary vascular congestion without pulmonary edema. Patchy bibasilar opacities are unchanged. Impression: Fluoroscopic guided placement of nasogastric tube which terminates in the proximal small bowel. No acute radiographic findings within the thorax or abdomen/pelvis. Signed by: Dr. Lee Gu MD on 12/18/2018 6:24 PM
[2018-12-18] MEDS ORDERED: ACETAMINOPHEN 325 MG TAB NG PRN (19:45)
--- NOTE | 2018-12-18 20:00 | NUR ---
MD Farias saw pt, read CT scan, saw pocket that may be hernia or abscess. Instructed to wait for MD Wallace to interpret results on whether J tube is safe to use or needs correction. IR placed DHT is Luer Lock only, TF not accessible due to lack of adapters.
--- NOTE | 2018-12-18 20:33 | Diagnostic Imaging Report ---
EXAM: CT Chest, Abdomen and Pelvis WITHOUT contrast INDICATION: ^hx GI leak, pneumonia; NEEDS GI contrast COMPARISON: KUB 12/18/2018 and chest radiograph 12/16/2018 TECHNIQUE: Chest, abdomen and pelvis were scanned utilizing a multidetector helical scanner from the lung apex to the pubic symphysis without administration of IV contrast. Coronal and sagittal reformations were obtained. Routine protocol was performed. IV CONTRAST: None. ORAL CONTRAST: None RADIATION DOSE: Total DLP: 819.3 mGy*cm Estimated effective dose: (DLP x 0.015 x size factor) mSv COMPLICATIONS: None FINDINGS: LINES and TUBES: Endotracheal tube with tip overlying the mid trachea. NG/OG tube with tip in the proximal duodenum. Right IJ hemodialysis central venous catheter with tip in the cavoatrial junction. LUNGS AND AIRWAYS: Small bilateral lower lobe consolidation, right greater than left have gradually increased since 12/16/2018. Multiple clusters of centrilobular pulmonary nodules in the upper and lower lobes, for example on the right on series 4, image 42. Subpleural reticulation of the lungs, mainly in the anterior upper lobes with mild bronchiectasis and groundglass opacities suggestive of nonspecific pattern of pulmonary fibrosis. Bilateral pulmonary edema. Moderate amount of the debris within the trachea. PLEURA: Small left pleural effusion. No pneumothorax. HEART AND MEDIASTINUM: The thyroid gland is normal. Multiple mildly enlarged noncalcified mediastinal lymph nodes with the largest measuring 1.3 cm in the right lower paratracheal region, likely reactive. The heart appears prominent. Small pericardial effusion. The thoracic aorta is normal in caliber and associated with moderate calcifications in the aortic arch and descending segment. Moderate coronary artery calcifications. The main pulmonary artery is normal in caliber, measuring 2.2 cm in diameter. The esophagus appears intact without surrounding fluid collections or fat stranding. HEPATOBILIARY: No focal hepatic lesions. No biliary ductal dilation. GALLBLADDER: Cholecystectomy. SPLEEN: No splenomegaly. PANCREAS: No focal masses or ductal dilatation. ADRENALS: No adrenal nodules KIDNEYS/URETERS: No hydronephrosis. No cystic or solid mass lesions. No stones. GI TRACT: Tubular defect in the left lower quadrant on series 2, image 65 consistent with percutaneous jejunostomy tube. No dilated loops of small or large bowel. Extensive diverticulosis of the sigmoid colon without diverticulitis. The appendix is not visualized. PELVIC ORGANS/BLADDER: Unremarkable. LYMPH NODES: No lymphadenopathy. VESSELS: Unremarkable. PERITONEUM / RETROPERITONEUM: No free air or fluid. BONES: Mild multilevel degenerative changes of the thoracolumbar spine. SOFT TISSUES: Moderate size anterior ventral hernia at midline containing few loops of nondilated bowel in a neck measuring 3.1 cm on series 2, image 81. IMPRESSION: 1. Bilateral lower lobe consolidation, right greater than left, and few bilateral centrilobular pulmonary nodules gradually increased since previous exams and suggestive of aspiration pneumonitis. 2. The esophagus is normal in caliber and appears intact without surrounding fluid collections or fat stranding. 3. Nondilated loops of small and large bowel. No colonic wall thickening. 4. Extensive diverticulosis of the sigmoid colon without diverticulitis. Signed by: Dr. lAisa Tomlin M.D. on 12/18/2018 8:30 PM
[2018-12-18] MEDS: TRAZODONE HCL 50 MG TAB PO PRN (21:13)
[2018-12-18] MEDS: GUAIFENESIN 200 MG/10 ML UDC JT PRN (21:20)
[2018-12-19] VITALS (25 sets, daily range): BP systolic 85–151; BP diastolic 43–73
--- NOTE | 2018-12-19 00:14 | Progress Note ---
DATE: 12/18/2018 PULMONARY MEDICINE PROGRESS NOTE SUBJECTIVE: Ms. Zaragoza was seen and examined at bedside. The patient with continued intubated status via tracheostomy. Ventilator support ongoing. We were able to successfully wean her significantly on ventilator. Her pressure support was 20 to 30 , now has come down to 12 cm of water. Peak pressure 18 to 33. Minimum ventilation 14 L a minute. Respiratory rate 28. REVIEW OF SYSTEMS: Cannot get reliably as she is not talking. OBJECTIVE: VITAL SIGNS: Afebrile, vital signs noted per the chart record. GENERAL: No acute distress. Alert, calm, awake, on ventilator. HEENT: Normocephalic, atraumatic. NECK: Supple. Throat midline. LUNGS: Bilateral air entry, few rhonchi. CARDIOVASCULAR: S1 and S2. No murmurs, rubs, or gallops. ABDOMEN: Soft, nontender. EXTREMITIES: No clubbing or cyanosis. There is no edema. INTEGUMENT: No rash. No purpura. LABORATORY DATA: 3.8 potassium, 52 BUN, 2.1 creatinine. 27 white count, 31 hematocrit, 448 platelets. Chest x-ray with mild overload appearance. IMPRESSION AND PLAN: 1. Acute respiratory failure, on ventilator. 2. Chronic respiratory failure, status post tracheostomy. 3. 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 4. Treat for pneumonia/bronchitis. 5. History of complicated post-bariatric surgery. 6. Continue ventilator weaning. We will follow up the white count, see where it is coming from. Continue Lasix, diuretic as indicated. Bill Farias MD GMN/MODL /[id number]
[2018-12-19] MEDS ORDERED: AZTREONAM 1 GM VIAL ONE (01:11)
[2018-12-19] MEDS: SODIUM CHLORIDE 0.9% IV SCH ×2 (01:14→09:30)
[2018-12-19] MEDS: AZTREONAM IV SCH ×2 (01:14→09:30)
[2018-12-19] MEDS: LORAZEPAM 0.5 MG TAB PO PRN ×3 (01:15→21:15)
[2018-12-19] MEDS: IPRATROPIUM BROMIDE 0.02% 2.5 ML NEB NEB SCH ×6 (02:20→23:10)
--- NOTE | 2018-12-19 02:25 | NUR ---
MD Maria Isabel Wallace at , states that he read CT results and states that J tube is okay to use for TF and meds.
[2018-12-19 05:04] LABS: BASOPHILS # (AUTO) 0.1 (0.0-0.1); BASOPHILS % 0.8 % (0.0-1.0); EOSINOPHILS # (AUTO) 0.4 (0.0-0.4); EOSINOPHILS % 2.5 % (0.0-6.0); HEMATOCRIT 30.4 % (34.2-44.1); LYMPHOCYTES # (AUTO) 1.9 (1.0-3.2); LYMPHOCYTES % 12.5 % (18.0-39.1); MEAN CORPUSCULAR HEMOGLOBIN 25.4 pg (28-32); MEAN CORPUSCULAR HGB CONC 29.6 g/dL (31-35); MEAN CORPUSCULAR VOLUME 85.6 fL (81-99); MONOCYTES # (AUTO) 1.3 (0.2-0.8); MONOCYTES % 8.4 % (4.4-11.3); NEUTROPHILS # (AUTO) 11.3 (2.1-6.9); PLATELET COUNT 406 x10e3/uL (140-360); RED BLOOD COUNT 3.55 x10e6/uL (3.6-5.1); RED CELL DISTRIBUTION WIDTH 17.5 % (11.7-14.4)
[2018-12-19] MEDS: QUETIAPINE FUMARATE 25 MG TAB PO PRN ×3 (05:20→21:15)
[2018-12-19 05:36] LABS: ALBUMIN 2.4 g/dL (3.5-5.0); ALBUMIN/GLOBULIN RATIO 0.5 (0.8-2.0); ANION GAP 15.7 mmol/L (8-16); CALCIUM 10.4 mg/dL (8.4-10.2); CREATININE, SERUM 2.18 mg/dL (0.57-1.11); POTASSIUM 3.7 mmol/L (3.5-5.1)
[2018-12-19] MEDS: INSULIN LISPRO 100 UNIT/1 ML 3ML VIAL SQ SCH ×5 (06:29→23:50)
[2018-12-19] MEDS: ACETAMINOPHEN 325 MG/10 ML UDC NG PRN ×3 (07:29→23:45)
[2018-12-19] MEDS: ALBUTEROL SULF 0.083% NEB SOLN 3 ML NEB NEB PRN (07:40)
[2018-12-19] MEDS: FUROSEMIDE INJ 10 MG/ML 4 ML VIAL IV SCH (09:30)
[2018-12-19] MEDS: SERTRALINE HCL 50 MG TAB JT SCH (09:30)
[2018-12-19] MEDS: PHENAZOPYRIDINE HCL 100 MG TAB PO SCH ×3 (09:30→17:31)
[2018-12-19] MEDS: BUPROPION HCL 100 MG TAB JT SCH ×2 (09:30→17:31)
[2018-12-19] MEDS: PANTOPRAZOLE 40 MG 10ML VIAL IV SCH (09:30)
--- NOTE | 2018-12-19 09:50 | NUR ---
Pt sleeping soundly and no family present. [facility]osp[facility] left a card describing availability of forming fixer and instructions on how to contact a forming fixer. CAROL ANN PEREZ Manager Hospice Spiritual Care Department O: [phone] Pager: [phone] ([phone] number calling from)
[2018-12-19] MEDS: BALSAM PERU/CASTOR OIL 60 GM OINT...G. TP SCH (10:38)
--- NOTE | 2018-12-19 12:45 | NUR ---
ST NOTE: Spoke with RN at length re pt status. Pt with large inflated size 8 trach, speaking around the cuff, accurately communicating with RN re: pain management and needs/wishes. Unable to place PMSV with out respiratory therapy to complete inline, not recommended with size 8 trach inline. Defer SLE at this time. If pt will be eating for nutritious reasons or for pleasure an MBS is recommended at this facility prior to d/c. Attempted to complete last 2 days and pt has had too many procedures to accomplish. RN to get order from . Handoff to MAYDA Iglesias
--- NOTE | 2018-12-19 17:39 | Progress Note ---
DATE: 12/19/2018 Pulmonary Medicine Progress Note SUBJECTIVE: Ms. Zaragoza was seen and examined at the bedside. She is on ventilator at this time. Weaning mode still on and she is tolerating it better than previous. Tube feeds at 40 mL/h. Water at 25 mL every 3 hours. No new critical worsening. REVIEW OF SYSTEMS: OBJECTIVE: VITAL SIGNS: Afebrile, vital signs noted per the chart record. GENERAL: No acute distress, alert and calm. HEENT: Normocephalic and atraumatic. NECK: Supple. Throat midline. LUNGS: Bilateral air entry, few rhonchi. CARDIOVASCULAR: S1 and S2. No murmurs, rubs, or gallops. ABDOMEN: Soft, nontender. EXTREMITIES: No clubbing and no cyanosis. There is no edema. INTEGUMENT: No rash. No purpura. LABORATORY DATA: BUN 36 and creatinine 2.1. White count 15 and hematocrit 30. IMPRESSION: 1. Acute respiratory failure, on ventilator. 2. Chronic respiratory failure, status post tracheostomy. 3. Pneumonia. 4. History of complicated bariatric surgery. 5. Tracheomalacia, with open tracheostomy tube. PLAN: Continue weaning mode. Discussed with Respiratory to make further attempts today. Continue tracheostomy care. The patient will have evaluation of CAT scan GI to make sure they do not need to do anything about the hernia except for conservative management. The patient will continue current care at this time. MD SUZIE Wells/MODL /[id number]
[2018-12-19] MEDS: TRAZODONE HCL 50 MG TAB PO PRN (21:15)
[2018-12-19] MEDS: GUAIFENESIN 200 MG/10 ML UDC JT PRN (23:45)
[2018-12-19] MEDS: ONDANSETRON HCL INJ 2MG/ML 2ML 2 MG/ML VIAL IV PRN (23:45)
[2018-12-20] VITALS (27 sets, daily range): BP systolic 104–175; BP diastolic 44–100
[2018-12-20] MEDS: IPRATROPIUM BROMIDE 0.02% 2.5 ML NEB NEB SCH ×6 (03:00→23:05)
[2018-12-20] MEDS: QUETIAPINE FUMARATE 25 MG TAB PO PRN ×3 (04:07→19:30)
[2018-12-20] MEDS: LORAZEPAM 0.5 MG TAB PO PRN ×3 (04:07→19:30)
[2018-12-20] MEDS: FUROSEMIDE INJ 10 MG/ML 4 ML VIAL IV SCH (04:50)
[2018-12-20 04:58] LABS: BASOPHILS # (AUTO) 0.1 (0.0-0.1); BASOPHILS % 0.9 % (0.0-1.0); EOSINOPHILS # (AUTO) 0.7 (0.0-0.4); EOSINOPHILS % 4.4 % (0.0-6.0); HEMATOCRIT 32.1 % (34.2-44.1); HEMOGLOBIN 9.6 g/dL (12.0-16.0); LYMPHOCYTES # (AUTO) 2.1 (1.0-3.2); LYMPHOCYTES % 13.7 % (18.0-39.1); MEAN CORPUSCULAR HEMOGLOBIN 26.2 pg (28-32); MEAN CORPUSCULAR HGB CONC 29.9 g/dL (31-35); MEAN CORPUSCULAR VOLUME 87.7 fL (81-99); MONOCYTES # (AUTO) 1.4 (0.2-0.8); MONOCYTES % 9.2 % (4.4-11.3); NEUTROPHILS % 70.8 % (38.7-80.0); PLATELET COUNT 484 x10e3/uL (140-360); RED BLOOD COUNT 3.66 x10e6/uL (3.6-5.1); RED CELL DISTRIBUTION WIDTH 17.5 % (11.7-14.4)
[2018-12-20 05:19] LABS: ANION GAP 14.6 mmol/L (8-16); CREATININE, SERUM 2.8 mg/dL (0.57-1.11); MAGNESIUM 2.2 MG/DL (1.3-2.1); PHOSPHORUS 4.7 MG/DL (2.3-4.7); POTASSIUM 3.6 mmol/L (3.5-5.1)
[2018-12-20] MEDS: INSULIN LISPRO 100 UNIT/1 ML 3ML VIAL SQ SCH ×4 (06:38→23:52)
[2018-12-20] MEDS: ALBUTEROL SULF 0.083% NEB SOLN 3 ML NEB NEB PRN (07:27)
[2018-12-20] MEDS: BUPROPION HCL 100 MG TAB JT SCH ×2 (09:21→16:30)
[2018-12-20] MEDS: BALSAM PERU/CASTOR OIL 60 GM OINT...G. TP SCH (09:21)
[2018-12-20] MEDS: SERTRALINE HCL 50 MG TAB JT SCH (09:21)
[2018-12-20] MEDS: PANTOPRAZOLE 40 MG 10ML VIAL IV SCH (09:21)
--- NOTE | 2018-12-20 11:12 | Progress Note ---
DATE: 12/20/2018 Pulmonary Medicine Progress Note SUBJECTIVE: Ms. Zaragoza was seen and examined at bedside. She has much improved and small airway secretions now. She is successful so far on further weaning. Her weaning is going faster than other patients. The pressure support has been decreased to 8 cm of water pressure, still on SIMV mode. Respiratory rate 22, peak pressures 14, minute ventilation 5 L/minute. Patient with tube feeds at 40 mL/h, Nepro 1.8, water 25 mL, every 3 hours of water. REVIEW OF SYSTEMS: No headaches, no rash upon communicating with her. OBJECTIVE: VITAL SIGNS: Afebrile, vital signs noted per the chart record. GENERAL: No acute distress, slightly anxious in bed, but for the most part calm. HEENT: Normocephalic, atraumatic. NECK: Supple. Throat midline. LUNGS: Bilateral air entry, few rhonchi. CARDIOVASCULAR: S1, S2. No murmurs, rubs, or gallops. ABDOMINAL: Soft, nontender. EXTREMITIES: No clubbing, no cyanosis, no edema. INTEGUMENT: No rash or purpura. LABORATORY DATA: Pending. IMPRESSION AND PLAN: 1. Acute respiratory failure, on ventilator. 2. Chronic respiratory failure, status post tracheostomy. 3. Tracheomalacia, status post long tracheostomy tube. 4. Partial residual airway obstruction. 5. History of complicated bariatric surgery with no evidence of recurrence of GI leak. 6. Dysphagia, status post feeding tube. 7. Pneumonia, improved secretions. Repeat CBC consideration as her white count improves. Continue toileting the airway. Continue weaning the ventilator. We are doing very good weaning at this acute care scenario. Consider LTAC evaluation for further weaning. Continue to follow up serially the airway to ensure there are no high pressure issues. Today, the peak pressure is oscillating between 14 on some breath and 28 on another breath, unclear why. May need to consider airways obstruction centrally due to endotracheal tube obstruction. MBS is being considered by Speech Therapy. MD SUZIE Wells/[facility] /[id number]
--- NOTE | 2018-12-20 13:21 | NUR ---
PT CLINICAL FORWARDED TO [facility] PER FAMILY REQUEST TO RETURN TO ORIGINAL PLACEMENT. WAITING ON AUTH
--- NOTE | 2018-12-20 14:24 | NUR ---
ST note: Spoke with MAYDA Wright. Pt not appropriate for MBS today. Will f/u Sunday12/23/18.
--- NOTE | 2018-12-20 15:07 | NUR ---
CALLED TO GET UPDATE TOLD STILL WAITING FOR AUTH TO RETURN TO [facility]. RTF COMPLETED AND LEFT FOR WEEKEND STAFF IF NEEDED.
--- NOTE | 2018-12-20 15:52 | NUR ---
pt refuses to wear SCD's even after pt teaching of risks. will continue to monitor
[2018-12-20] MEDS: LORAZEPAM 0.5 MG TAB PO SCH (16:30)
--- NOTE | 2018-12-20 16:44 | Progress Note ---
DATE: 12/20/2018 Psychiatric Progress Note SUBJECTIVE: The patient is within the ICU. She is calm, cooperative. She is a little weak. She states that she is doing fairly okay. She denies depression or anxiety. However, nursing staff reports that patient has been agitated, tugging at her oxygen tube. She is pulling at monitors. She has been getting p.r.n. Ativan and Seroquel, both for anxiety and for agitation. The patient received both, but she is continuing to be agitated. She is getting her medication, no serious side effects seen. ASSESSMENT: Major depressive disorder, recurrent, moderate; unspecified psychosis. PLAN: 1. Add Seroquel 25 mg p.o. q.h.s. 2. Continue Seroquel 25 mg p.o. q.6 hours p.r.n. 3. Continue Ativan 0.5 mg p.o. q.6 hours p.r.n. 4. Continue Zoloft 50 mg p.o. daily. 5. Continue Wellbutrin 100 mcg p.o. b.i.d. 6. Continue trazodone 50 mg p.o. q.h.s. p.r.n. 7. Add Ativan 0.5 mg p.o. b.i.d. 8. Add Haldol 2 mg IM q.6 hours p.r.n. 9. Monitor for mood. 10. Supportive therapy. Dictated by Ava Wright PA-C Alejandro Liu MD [facility] /[id number]
[2018-12-20] MEDS: EPOETIN ALFA 10000 UNIT/ML VIAL SC SCH (17:00)
[2018-12-20] MEDS ORDERED: CEFEPIME 2 GM/NS 0.9% 100 ML 100 ML IV SCH (18:00)
[2018-12-20] MEDS: HALOPERIDOL LACTATE 5 MG/ML VIAL IM PRN (19:22)
[2018-12-20] MEDS: QUETIAPINE FUMARATE 25 MG TAB PO SCH (23:50)
[2018-12-20] MEDS: TRAZODONE HCL 50 MG TAB PO PRN (23:51)
[2018-12-20] MEDS: GUAIFENESIN 200 MG/10 ML UDC JT PRN (23:51)
[2018-12-20] MEDS: ACETAMINOPHEN 325 MG/10 ML UDC NG PRN (23:51)
[2018-12-20] MEDS: ONDANSETRON HCL INJ 2MG/ML 2ML 2 MG/ML VIAL IV PRN (23:54)
[2018-12-21] VITALS (22 sets, daily range): BP systolic 99–153; BP diastolic 48–87
[2018-12-21] MEDS: LORAZEPAM 0.5 MG TAB PO PRN (01:37)
[2018-12-21] MEDS: QUETIAPINE FUMARATE 25 MG TAB PO PRN (01:37)
[2018-12-21] MEDS: HALOPERIDOL LACTATE 5 MG/ML VIAL IM PRN (02:54)
[2018-12-21] MEDS: IPRATROPIUM BROMIDE 0.02% 2.5 ML NEB NEB SCH ×6 (04:01→22:14)
[2018-12-21 05:22] LABS: BASOPHILS # (AUTO) 0.1 (0.0-0.1); BASOPHILS % 0.7 % (0.0-1.0); EOSINOPHILS # (AUTO) 0.5 (0.0-0.4); EOSINOPHILS % 3.4 % (0.0-6.0); HEMOGLOBIN 9.3 g/dL (12.0-16.0); LYMPHOCYTES # (AUTO) 1.2 (1.0-3.2); LYMPHOCYTES % 8.2 % (18.0-39.1); MEAN CORPUSCULAR VOLUME 86.6 fL (81-99); MONOCYTES # (AUTO) 1.1 (0.2-0.8); MONOCYTES % 7.2 % (4.4-11.3); NEUTROPHILS # (AUTO) 11.9 (2.1-6.9); NEUTROPHILS % 79.3 % (38.7-80.0); PLATELET COUNT 512 x10e3/uL (140-360); RED BLOOD COUNT 3.58 x10e6/uL (3.6-5.1); RED CELL DISTRIBUTION WIDTH 17.5 % (11.7-14.4)
[2018-12-21 05:44] LABS: CALCIUM IONIZED 1.3 mmol/L (1.09-1.30)
[2018-12-21 05:50] LABS: ANION GAP 15.4 mmol/L (8-16); CALCIUM 10.7 mg/dL (8.4-10.2); CREATININE, SERUM 2.01 mg/dL (0.57-1.11); POTASSIUM 3.4 mmol/L (3.5-5.1)
[2018-12-21] MEDS: INSULIN LISPRO 100 UNIT/1 ML 3ML VIAL SQ SCH ×3 (06:15→18:00)
--- NOTE | 2018-12-21 08:27 | Diagnostic Imaging Report ---
EXAMINATION: CHEST SINGLE (PORTABLE) INDICATION: ^Resp Failure COMPARISON: Chest CT 12/18/2018. Chest x-ray 12/18/2018. FINDINGS: AP view TUBES and LINES: Tracheostomy tube is in place. Tunneled right dialysis catheter with tip in the right atrium is unchanged. LUNGS: Lungs are well inflated. There are bibasilar atelectasis. There is perihilar interstitial opacities, consistent with interstitial edema. PLEURA: No pleural effusion or pneumothorax. HEART AND MEDIASTINUM: The cardiomediastinal silhouette is unremarkable. BONES AND SOFT TISSUES: No acute osseous lesion. Soft tissues are unremarkable. UPPER ABDOMEN: No free air under the diaphragm. IMPRESSION: Mild interstitial edema. Signed by: Dr. Karl Beasley M.D. on 12/21/2018 8:24 AM
[2018-12-21] MEDS: BUPROPION HCL 100 MG TAB JT SCH ×2 (09:00→17:36)
[2018-12-21] MEDS: BALSAM PERU/CASTOR OIL 60 GM OINT...G. TP SCH (09:00)
[2018-12-21] MEDS: PANTOPRAZOLE 40 MG 10ML VIAL IV SCH (09:00)
[2018-12-21] MEDS: LORAZEPAM 0.5 MG TAB PO SCH ×2 (09:00→17:37)
[2018-12-21] MEDS: SERTRALINE HCL 50 MG TAB JT SCH (09:00)
[2018-12-21] MEDS: FUROSEMIDE INJ 10 MG/ML 4 ML VIAL IV SCH (09:00)
--- NOTE | 2018-12-21 10:03 | Progress Note ---
DATE: 12/21/2018 Pulmonary Critical Care Progress Note SUBJECTIVE: I am covering today for Dr. Farias. The patient remains on an assist-control mode of ventilation. She has a rectal tube in place and some diarrhea. She is afebrile. She has no new complaints. PHYSICAL EXAMINATION: VITAL SIGNS: Blood pressure is 135/64 and the pulse is 108. The patient is set at SIMV of 14 with pressure support, but is breathing about 20-24 times a minute. HEENT: Shows no facial swelling or erythema. There is a tracheostomy in good position. CARDIAC: Reveals a regular rate and rhythm with normal S1 and S2. There are no murmurs. LUNGS: Auscultation of lungs shows rhonchorous breath sounds bilaterally. There is no wheezing. ABDOMEN: Soft and nontender. There is no rebound or guarding. Also, she has a feeding tube. EXTREMITIES: There is no leg edema or calf tenderness. Venous compression devices in place. LABORATORY DATA: BUN to creatinine ratio is 37-2.01. The electrolytes are within normal limits. The white blood cell count is 15, hemoglobin 9.3 and platelet count 512. Urinalysis is normal. IMPRESSION: 1. Bldgd-vp-iofnayf respiratory failure. 2. Tracheomalacia. 3. Diarrhea. 4. Moderate protein-calorie malnutrition. 5. Lower respiratory tract infection with Pseudomonas on cultures. PLAN: 1. Continue current cefepime. 2. Continue SIMV and wean as tolerated. 3. Continue enteral feedings. 4. Monitor electrolytes and CBC. 5. Case discussed with respiratory and nursing. Jose Manuel Kc MD [facility] /[id number]
[2018-12-21] MEDS ORDERED: POTASSIUM CHLORIDE 20MEQ/15ML UDC NG ONE (12:00)
--- NOTE | 2018-12-21 17:58 | Progress Note ---
DATE: 12/21/2018 Internal Medicine Progress Note SUBJECTIVE: The patient is still on the ventilator. OBJECTIVE: VITAL SIGNS: Blood pressure 135/64, temperature 98.7, heart rate 108 per minute, respiratory rate 26 per minute, and oxygen saturation 100%. HEART: Showed regular rhythm. No murmurs or added sound. LUNGS: Clear bilaterally, but significantly decreased. ABDOMEN: Soft. PEG tube in place. EXTREMITIES: Show no evidence of cyanosis, edema, or trauma. LABORATORY DATA: BMP; sodium 136, potassium 3.4, chloride 99, CO2 of 25, BUN 37, creatinine 2.01, glucose 184. CBC; white blood count 14,900, hemoglobin 9.3, hematocrit 31.0, and platelet count 612,000. PT 15.3, INR 1.11, PTT 39.7. AST 29, ALT 26, total bilirubin 0.3, alkaline phosphatase 108. IMPRESSION: 1. Acute respiratory failure. 2. Aspiration pneumonia. 3. End-stage renal disease, on dialysis. 4. Uncontrolled diabetes mellitus type 2 with end-stage renal disease. 5. Anemia of chronic disease secondary to end-stage renal disease. 6. Cerebrovascular accident with left hemiparesis. 7. Depression. 8. Coronary artery disease. PLAN OF TREATMENT: 1. Continue ventilator support, wean as tolerated. 2. Continue albuterol and Atrovent q.4 hours around the clock Sunday, Sunday, and Sunday. Continue furosemide 40 mg daily, Seroquel 25 mg q.6 hours, Zofran 4 mg q.4 hours as needed for vomiting, lorazepam 0.5 mg twice a day as needed for anxiety, Epogen 10,000 units on Sunday, Sunday, and Sunday for anemia of chronic disease. Continue Protonix 40 mg daily, Zoloft 50 mg daily. Continue to monitor blood sugar q.6 hours. Continue Haldol 2 mg IV every 6 hours as needed for agitation , guaifenesin 200 mg q.4 hours as needed for cough, application daily, trazodone 50 mg at bedtime, Tylenol 650 mg q.6 hours as needed, bupropion 100 mg twice a day, lorazepam 0.5 mg q.6 hours as needed, heparin 4100 units as needed. Continue Seroquel 25 mg at bedtime. Labs have been reviewed. Medications have been reviewed. I spent 40 to 55 minutes. MD CORRINE Love/CONOR /[id number]
[2018-12-21] MEDS: ALBUTEROL SULF 0.083% NEB SOLN 3 ML NEB NEB PRN ×2 (19:12→22:14)
[2018-12-21] MEDS: TRAZODONE HCL 50 MG TAB PO PRN (20:49)
[2018-12-21] MEDS: GUAIFENESIN 200 MG/10 ML UDC JT PRN (20:49)
[2018-12-21] MEDS: QUETIAPINE FUMARATE 25 MG TAB PO SCH (20:49)
[2018-12-22] VITALS (23 sets, daily range): BP systolic 101–175; BP diastolic 42–97
[2018-12-22] MEDS: INSULIN LISPRO 100 UNIT/1 ML 3ML VIAL SQ SCH ×4 (00:15→18:40)
[2018-12-22] MEDS: ALBUTEROL SULF 0.083% NEB SOLN 3 ML NEB NEB PRN ×4 (02:20→14:56)
[2018-12-22] MEDS: GUAIFENESIN 200 MG/10 ML UDC JT PRN ×2 (02:30→21:54)
[2018-12-22] MEDS: QUETIAPINE FUMARATE 25 MG TAB PO PRN ×2 (02:30→21:54)
[2018-12-22] MEDS: LORAZEPAM 0.5 MG TAB PO PRN (02:30)
[2018-12-22] MEDS: IPRATROPIUM BROMIDE 0.02% 2.5 ML NEB NEB SCH ×6 (02:30→22:32)
[2018-12-22 05:15] LABS: BASOPHILS # (AUTO) 0.2 (0.0-0.1); BASOPHILS % 1.3 % (0.0-1.0); EOSINOPHILS # (AUTO) 0.6 (0.0-0.4); EOSINOPHILS % 4.4 % (0.0-6.0); HEMATOCRIT 31.1 % (34.2-44.1); HEMOGLOBIN 9.1 g/dL (12.0-16.0); LYMPHOCYTES # (AUTO) 1.7 (1.0-3.2); LYMPHOCYTES % 12.4 % (18.0-39.1); MEAN CORPUSCULAR HEMOGLOBIN 25.9 pg (28-32); MEAN CORPUSCULAR HGB CONC 29.3 g/dL (31-35); MEAN CORPUSCULAR VOLUME 88.6 fL (81-99); MONOCYTES # (AUTO) 1.3 (0.2-0.8); MONOCYTES % 9.6 % (4.4-11.3); NEUTROPHILS # (AUTO) 9.9 (2.1-6.9); NEUTROPHILS % 70.7 % (38.7-80.0); PLATELET COUNT 508 x10e3/uL (140-360); RED BLOOD COUNT 3.51 x10e6/uL (3.6-5.1); RED CELL DISTRIBUTION WIDTH 17.9 % (11.7-14.4)
[2018-12-22 05:48] LABS: ANION GAP 14.1 mmol/L (8-16); CALCIUM 11.1 mg/dL (8.4-10.2); CREATININE, SERUM 2.31 mg/dL (0.57-1.11); POTASSIUM 4.1 mmol/L (3.5-5.1)
--- NOTE | 2018-12-22 07:15 | NUR ---
Patient received asleep and on trache to VEnt: SIMV-14; TV-450; FIO2-30% and Peep-5 and 02 sats are 100%. Respirations are even and unalbored. Awakens when called by name. V/S are stable.
[2018-12-22] MEDS: LORAZEPAM 0.5 MG TAB PO SCH ×2 (09:00→17:00)
[2018-12-22] MEDS: BUPROPION HCL 100 MG TAB JT SCH ×2 (09:00→17:00)
[2018-12-22] MEDS: SERTRALINE HCL 50 MG TAB JT SCH (09:00)
[2018-12-22] MEDS: FUROSEMIDE INJ 10 MG/ML 4 ML VIAL IV SCH (09:00)
[2018-12-22] MEDS: PANTOPRAZOLE 40 MG 10ML VIAL IV SCH (09:00)
[2018-12-22] MEDS: BALSAM PERU/CASTOR OIL 60 GM OINT...G. TP SCH (09:19)
--- NOTE | 2018-12-22 10:48 | NUR ---
Stool specimen sent to lab for C. Diff
--- NOTE | 2018-12-22 14:00 | NUR ---
Dr. Pacheco Kc here at bedside and notified of positive C. Diff results
--- NOTE | 2018-12-22 14:23 | Progress Note ---
DATE: 12/22/2018 Internal Medicine Progress Note SUBJECTIVE: The patient is doing well. She is on pressure support on ventilator, keeping a good oxygen saturation. Blood sugar is very high. We are going to start her on nighttime. PHYSICAL EXAMINATION: VITAL SIGNS: Blood pressure 114/47, temperature 98 degrees, heart rate 80 per minute, respiratory rate 19 per minute, oxygen saturation 100%. HEART: Showed regular rhythm. Normal murmur or added sound. LUNGS: Clear bilaterally. ABDOMEN: Soft. EXTREMITIES: Show no evidence of cyanosis or hematoma. LABORATORY DATA: On blood work, BMP, sodium 132, potassium 4.1, chloride 97, CO2 25, BUN 56, creatinine 2.31, glucose 142. On CBC, white blood count 41840, hemoglobin 9.1, hematocrit 31.1, and platelet count 508,000. PT 15.3, INR 1.11, PTT 39.7. AST 29, ALT 26, total bilirubin 0.8, hematocrit 41.8. FINAL IMPRESSION: 1. Syimc-bj-qqgvmgl respiratory failure. 2. Aspiration pneumonia. 3. End-stage renal disease, on dialysis. 4. Uncontrolled diabetes mellitus type 2 with end-stage renal disease. 5. Anemia of chronic disease. 6. Left-sided cerebrovascular accident with left hemiparesis. PLAN OF TREATMENT: To start her on Levemir 8 units at bedtime. Continue monitoring the sugar every 6 hours. Continue albuterol, Atrovent q.4 hours. Continue cefepime Sunday, Sunday, and Sunday. Continue albumin as needed, furosemide 40 mg daily, Seroquel 25 mg q.6 hours. Continue Haldol 2 mg IV q.6 hours as needed for agitation. Continue Epogen 10,000 units Sunday, Sunday, Sunday, Protonix 40 mg daily, sertraline 50 mg daily, Tylenol 650 mg every 6 hours. Continue guaifenesin 200 mg q.4 hours as needed. Continue Balsam Emmanuel, castor oil application daily, trazodone 50 mg at bedtime, Seroquel 25 mg at bedtime, bupropion 100 mg twice daily, lorazepam 0.5 mg q.6 hours, Zofran 4 mg q.4 hours as needed, lorazepam 0.5 mg twice a day as needed. The case has been discussed with patient's . Time spent around 55 minutes. MD CORRINE Love/CONOR /[id number]
--- NOTE | 2018-12-22 17:49 | Progress Note ---
DATE: 12/22/2018 Pulmonary Progress Note SUBJECTIVE: The patient's C difficile came back positive. She still has a rectal tube in place. The patient was placed on a pressure support of 10 and a CPAP of 5. She tolerated this for about 4 hours before she became tachypneic and had to be switched back to SIMV. PHYSICAL EXAMINATION: VITAL SIGNS: The patient is afebrile. The blood pressure is 114/47 and the pulse is 93. Respiratory rate is 20. Saturation is 100%. HEENT: Shows no facial swelling or erythema. The oropharynx is normal. There is a tracheostomy in place. The site looks clean. There is no drainage. CARDIAC: Reveals regular rate and rhythm with normal S1 and S2. LUNGS: Auscultation of lungs reveals rhonchorous breath sounds bilaterally. There is no wheezing. ABDOMEN: Soft, nontender. There is no rebound or guarding. EXTREMITIES: Show no leg edema or calf tenderness. There is no cyanosis or clubbing. SKIN: Shows no rashes. NEUROLOGICAL: Shows no focal abnormalities. LABORATORY DATA: White blood cell count is 14 and the hemoglobin is 9.1. The platelet count is 508. The BUN to creatinine ratio is 56 to 2.3. The other electrolytes are within normal limits. Serology is positive for C difficile. IMPRESSION: 1. Clostridium difficile colitis. 2. Lower respiratory tract infection with Pseudomonas in sputum. 3. Acute on chronic respiratory failure. 4. Tracheomalacia. 5. Moderate protein calorie malnutrition. 6. End-stage renal disease. 7. Diabetes. 8. History of left-sided cerebrovascular accident. PLAN: 1. The patient will be started on p.o. vanco four times a day and the cefepime will be held. 2. She will be started on inhaled tobramycin twice a day. 3. Continue spontaneous breathing trials as tolerated. 4. Continue dialysis. 5. Monitor blood sugars. Jose Manuel Kc MD [facility]L /[id number]
[2018-12-22] MEDS: VANCOMYCIN 250MG/5ML ORAL SOLN PO SCH (18:17)
[2018-12-22] MEDS ORDERED: TOBRAMYCIN 40MG/ML 30ML MDV INH SCH (19:00)
[2018-12-22] MEDS: TOBRAMYCIN 40MG/ML 30ML MDV INH SCH (19:05)
[2018-12-22] MEDS: HALOPERIDOL LACTATE 5 MG/ML VIAL IM PRN (20:05)
[2018-12-22] MEDS: QUETIAPINE FUMARATE 25 MG TAB PO SCH (21:53)
[2018-12-22] MEDS: TRAZODONE HCL 50 MG TAB PO PRN (21:54)
[2018-12-22] MEDS: INSULIN GLARGINE 100 UNITS/ML VIAL SQ SCH (21:54)
[2018-12-23] VITALS (24 sets, daily range): BP systolic 99–168; BP diastolic 47–94
[2018-12-23] MEDS: VANCOMYCIN 250MG/5ML ORAL SOLN PO SCH ×4 (01:33→17:21)
[2018-12-23] MEDS: SIMETHICONE 80 MG CHEW JT PRN (01:33)
[2018-12-23] MEDS: LORAZEPAM 0.5 MG TAB PO PRN ×2 (01:34→17:21)
[2018-12-23] MEDS: QUETIAPINE FUMARATE 25 MG TAB PO PRN ×2 (01:34→17:21)
[2018-12-23] MEDS: ACETAMINOPHEN 325 MG/10 ML UDC NG PRN ×2 (01:34→15:15)
[2018-12-23] MEDS: INSULIN LISPRO 100 UNIT/1 ML 3ML VIAL SQ SCH ×4 (01:45→18:40)
[2018-12-23] MEDS: IPRATROPIUM BROMIDE 0.02% 2.5 ML NEB NEB SCH ×6 (02:35→23:00)
[2018-12-23 05:05] LABS: BASOPHILS # (AUTO) 0.2 (0.0-0.1); BASOPHILS % 0.9 % (0.0-1.0); EOSINOPHILS # (AUTO) 0.7 (0.0-0.4); EOSINOPHILS % 4.4 % (0.0-6.0); HEMATOCRIT 31.4 % (34.2-44.1); HEMOGLOBIN 9.3 g/dL (12.0-16.0); LYMPHOCYTES # (AUTO) 1.8 (1.0-3.2); LYMPHOCYTES % 10.4 % (18.0-39.1); MEAN CORPUSCULAR HEMOGLOBIN 26.1 pg (28-32); MEAN CORPUSCULAR HGB CONC 29.6 g/dL (31-35); MEAN CORPUSCULAR VOLUME 88.2 fL (81-99); MONOCYTES # (AUTO) 1.7 (0.2-0.8); MONOCYTES % 9.9 % (4.4-11.3); NEUTROPHILS # (AUTO) 12.2 (2.1-6.9); NEUTROPHILS % 72.2 % (38.7-80.0); PLATELET COUNT 524 x10e3/uL (140-360); RED BLOOD COUNT 3.56 x10e6/uL (3.6-5.1); RED CELL DISTRIBUTION WIDTH 18.5 % (11.7-14.4)
[2018-12-23 05:43] LABS: ALBUMIN 2.6 g/dL (3.5-5.0); ALBUMIN/GLOBULIN RATIO 0.5 (0.8-2.0); CALCIUM 11.7 mg/dL (8.4-10.2); CREATININE, SERUM 1.99 mg/dL (0.57-1.11)
[2018-12-23] MEDS: TOBRAMYCIN 40MG/ML 30ML MDV INH SCH ×2 (07:35→19:30)
[2018-12-23] MEDS: SERTRALINE HCL 50 MG TAB JT SCH (09:08)
[2018-12-23] MEDS: LORAZEPAM 0.5 MG TAB PO SCH ×2 (09:08→17:21)
[2018-12-23] MEDS: FUROSEMIDE INJ 10 MG/ML 4 ML VIAL IV SCH (09:08)
[2018-12-23] MEDS: PANTOPRAZOLE 40 MG 10ML VIAL IV SCH (09:08)
[2018-12-23] MEDS: BUPROPION HCL 100 MG TAB JT SCH ×2 (09:08→17:21)
[2018-12-23] MEDS: BALSAM PERU/CASTOR OIL 60 GM OINT...G. TP SCH (09:08)
[2018-12-23 11:20] LABS: EOSINOPHILS % (MANUAL) 3 % (0-7); LYMPHOCYTES % (MANUAL) 12 % (19-48); MONOCYTES % (MANUAL) 5 % (3.4-9.0); NEUTROPHILS % (MANUAL) 80 % (40-74)
[2018-12-23 11:22] LABS: PLATELET ESTIMATE SLIGHTLY INCREASED; PLATELET MORPHOLOGY COMMENT NORMAL
[2018-12-23 11:23] LABS: RBC MORPHOLOGY COMMENT NORMAL
--- NOTE | 2018-12-23 12:39 | NUR ---
ST NOTE: Spoke with MAYDA Howe re: pt status. Pt to return to [facility] today. Recommended MBS prior to d/c if pt to have pleasure feeds. will complete if order received.
[2018-12-23] MEDS: METRONIDAZOLE 500MG/NS 100ML 100 ML IV SCH ×2 (13:59→22:20)
--- NOTE | 2018-12-23 14:45 | NUR ---
SPOKE WITH TOSHA FROM [facility], STILL WAITING ON AUTH.
--- NOTE | 2018-12-23 15:48 | NUR ---
Follow-up Note RD Recommendation(s) for Physician: - Continue continuous TF of Nepro @40mL/hr, providing 1725kcal, 78g protein, 700mL H2O. - Water flushes per MD discretion - Rec probiotics to promote gut health - Check daily labs, weight, GI tolerance Plan of Care: RD following, monitoring for tolerance and adequacy Nutrition reason for involvement: Follow up RD Assessment (12/23) Pt was discussed during AM rounds. + C diff. Rectal tube in place. Per MAYDA Howe, TF was tolerated well at goal rate. No gastric residual noted. Will continue to monitor and follow. (12/18) Pt was discussed during AM rounds. HD today. Trach to vent. CT abd/pel scheduled for today. Nepro running at goal rate of 40mL/hr. Per MAYDA Singer, TF was well tolerated with no gastric residual. Will continue to monitor and follow. (12/14) Initial encounter with patient. Pt is NPO and is to receive Nepro at 40ml/hr via jejunostomy tube which will provide 697ml of free H2O, 1728 kcals, and 77.7g of protein. Pt denies any nausea, vomiting or diarrhea. Pt has dental implants. Jejunostomy placement has been confirmed. Principal Problems/Diagnoses: chronic respiratory failure PMH: subdiaphragmatic abscess, exploratory laparotomy, T2DM, oropharyngeal dysphagia, stage 2 sacral wound, CKD stage 5 on HD, Complications from lap band surgery, peritonitis GI: Abdomen soft, non-tender, round, flatus present, liquid stool 12/23 Skin: right sacro-gluteal- healing stage II pressure ulcer, present on admission Labs: (12/23/2018) Na 130 L, BUN 67 H, Creatinine 1.99 H, Glucose 150 220 H, Ca 11.7 H (12/18/2018) BUN 52 H, creatinine 2.12 H, Glucose 184 H, Ca 10.7 H Meds: insulin, abx, lasix, protonix Malnutrition Evaluation (12/14/2018) The patient does not meet criteria for a specified degree of malnutrition at this time. Will re-evaluate at follow-up as appropriate. Diet Education Needs Assessment: Diet education not indicated, patient is NPO except for EN Ht:65 Wt:146.5lbs; 140lbs; 150lb (weights fluctuate with HD) BMI:24.4kg/m2 IBW:125lbs Estimated Nutritional Needs: 1664 - 1997 kcals at 25-30 kcals/kg/bw 67-98g/kg/bw Nutrition Prescription (Diet Order): Nepro @40mL/hr Food Allergies: no known food allergies Diet Adequacy: Meeting calorie needs, Meeting protein needs, Meeting fluid needs Tolerance: Tolerating Nutrition Care Level: low Nutrition Diagnosis: Swallowing difficulty related to chronic illness as evidenced by pt requiring EN as main source of nutrients. Goal: Patient will meet 75-100% of estimated needs by follow up Progress: Goal met Interventions: Composition, Rate, Route Monitoring/Evaluation: Total energy intake, Total protein intake, Formula/Solution, Weight change. Allie Sabillon, MS, RD, LD
[2018-12-23] MEDS ORDERED: SODIUM CHLORIDE 0.9% 250ML 500 ML IV PRN (16:30)
[2018-12-23] MEDS ORDERED: HEPARIN SOD (PORCINE) 1000 UNIT/ML SDV IV PRN (16:30)
[2018-12-23] MEDS ORDERED: SODIUM CHLORIDE 0.9% 1000ML 2,000 ML IV PRN (16:30)
[2018-12-23] MEDS: MUPIROCIN 2% OINT 22 GM TUBE TOP SCH (17:21)
--- NOTE | 2018-12-23 18:05 | Progress Note ---
DATE: 12/23/2018 Psychiatric Progress Note SUBJECTIVE: The patient evaluated and events noted. The patient is in the ICU with in the room. She is alert, awake, and oriented to situation. She is on ventilator. The patient depressed and anxious. She denies any hallucinations. She denies any suicidal ideations. The patient is on feeding tube. She complained of poor sleep. The patient's getting p.o. and IM medication and p.r.n. p.o. medication for the last few days consecutively. She is receiving medications. No serious side effects reported. Collaborative report from the , who report that the patient was doing better on Lexapro. He wants her to be back on that medication. Nursing staff report that patient has been intermittently anxious. ASSESSMENT: Major depressive disorder, recurrent, moderate; unspecified psychosis. PLAN: 1. Discontinue Zoloft. 2. Restart Lexapro 20 mg p.o. daily. 3. Continue with Haldol p.r.n. IM. 4. Continue with Seroquel p.r.n. p.o. 5. Increase Seroquel 50 mg p.o. q.h.s. 6. Continue with Ativan 0.5 mg p.o. b.i.d. 7. Continue Ativan 0.5 mg p.o. q.6 hours p.r.n. 8. Continue trazodone 50 mg p.o. q.h.s. p.r.n. 9. Continue Wellbutrin 100 mg per DEBRA tube b.i.d. 10. Monitor for mood. 11. Supportive therapy. Dictated by Ava Wright PA-C Alejandro Liu MD [facility] /[id number]
--- NOTE | 2018-12-23 19:00 | Progress Note ---
DATE: 12/23/2018 Pulmonary Critical Care Progress Note SUBJECTIVE: The patient was started on oral Flagyl and IV vancomycin for C difficile yesterday. She was placed on a pressure support of 10 and a CPAP of 5 this morning and has tolerated it for about 5 hours. She is receiving dialysis today. OBJECTIVE: VITAL SIGNS: The blood pressure is 168/76 and the pulse is 102. The patient is afebrile. NECK: Tracheostomy site looks clean. There is no drainage. CARDIAC: Reveals regular rate and rhythm with a normal S1 and S2. There are no murmurs or rubs heard. LUNGS: Auscultation of lungs reveals decreased breath sounds at the bases. There is no wheezing. ABDOMEN: Soft and nontender. There is no rebound or guarding. EXTREMITIES: Show no leg edema or calf tenderness. IMPRESSION: 1. Clostridium difficile colitis. 2. Lower respiratory tract infection with Pseudomonas in sputum. 3. Acute on chronic respiratory failure. 4. Tracheomalacia. 5. Moderate protein-calorie malnutrition. 6. End-stage renal disease. 7. Diabetes. 8. History of cerebrovascular accident. PLAN: 1. Continue treatment for C difficile colitis. 2. Continue dialysis. 3. Spontaneous breathing trial. 4. Monitor blood sugars. 5. Continue inhaled tobramycin for about seven days. Jose Manuel Kc MD [facility] /[id number]
[2018-12-23] MEDS: ALBUTEROL SULF 0.083% NEB SOLN 3 ML NEB NEB PRN ×2 (19:15→23:00)
[2018-12-23] MEDS: INSULIN GLARGINE 100 UNITS/ML VIAL SQ SCH (22:19)
[2018-12-23] MEDS: QUETIAPINE FUMARATE 25 MG TAB PO SCH (22:19)
[2018-12-24] VITALS (25 sets, daily range): BP systolic 92–172; BP diastolic 53–121
[2018-12-24] MEDS: VANCOMYCIN 250MG/5ML ORAL SOLN PO SCH ×4 (00:13→18:41)
[2018-12-24] MEDS: IPRATROPIUM BROMIDE 0.02% 2.5 ML NEB NEB SCH ×6 (03:00→23:50)
[2018-12-24] MEDS: ALBUTEROL SULF 0.083% NEB SOLN 3 ML NEB NEB PRN (03:00)
[2018-12-24 05:02] LABS: BASOPHILS # (AUTO) 0.2 (0.0-0.1); EOSINOPHILS # (AUTO) 0.8 (0.0-0.4); EOSINOPHILS % 4.6 % (0.0-6.0); HEMATOCRIT 32.9 % (34.2-44.1); LYMPHOCYTES # (AUTO) 1.8 (1.0-3.2); LYMPHOCYTES % 10.5 % (18.0-39.1); MEAN CORPUSCULAR HEMOGLOBIN 26.4 pg (28-32); MEAN CORPUSCULAR HGB CONC 30.4 g/dL (31-35); MEAN CORPUSCULAR VOLUME 86.8 fL (81-99); MONOCYTES # (AUTO) 1.7 (0.2-0.8); MONOCYTES % 9.8 % (4.4-11.3); NEUTROPHILS # (AUTO) 12.2 (2.1-6.9); NEUTROPHILS % 71.2 % (38.7-80.0); PLATELET COUNT 541 x10e3/uL (140-360); RED BLOOD COUNT 3.79 x10e6/uL (3.6-5.1); RED CELL DISTRIBUTION WIDTH 19.3 % (11.7-14.4)
[2018-12-24 05:29] LABS: ALBUMIN 2.9 g/dL (3.5-5.0); ALBUMIN/GLOBULIN RATIO 0.6 (0.8-2.0); ANION GAP 14.5 mmol/L (8-16); CALCIUM 10.8 mg/dL (8.4-10.2); CREATININE, SERUM 1.66 mg/dL (0.57-1.11); POTASSIUM 3.5 mmol/L (3.5-5.1)
[2018-12-24] MEDS: METRONIDAZOLE 500MG/NS 100ML 100 ML IV SCH ×3 (06:00→21:32)
[2018-12-24] MEDS: INSULIN LISPRO 100 UNIT/1 ML 3ML VIAL SQ SCH ×4 (06:06→18:41)
[2018-12-24] MEDS: TOBRAMYCIN 40MG/ML 30ML MDV INH SCH ×2 (08:45→19:55)
[2018-12-24] MEDS: PANTOPRAZOLE 40 MG 10ML VIAL IV SCH (08:46)
[2018-12-24] MEDS: BUPROPION HCL 100 MG TAB JT SCH ×2 (08:46→18:41)
[2018-12-24] MEDS: LORAZEPAM 0.5 MG TAB PO SCH ×2 (08:46→18:41)
[2018-12-24] MEDS: FUROSEMIDE INJ 10 MG/ML 4 ML VIAL IV SCH (08:46)
[2018-12-24] MEDS: ESCITALOPRAM OXALATE 10 MG TAB PO SCH (08:46)
[2018-12-24] MEDS: MUPIROCIN 2% OINT 22 GM TUBE TOP SCH ×2 (09:00→17:58)
[2018-12-24 09:47] LABS: EOSINOPHILS % (MANUAL) 3 % (0-7); LYMPHOCYTES % (MANUAL) 7 % (19-48); MONOCYTES % (MANUAL) 6 % (3.4-9.0); NEUTROPHILS % (MANUAL) 83 % (40-74)
[2018-12-24 09:48] LABS: PLATELET ESTIMATE SLIGHTLY INCREASED; PLATELET MORPHOLOGY COMMENT NORMAL
[2018-12-24 09:49] LABS: RBC MORPHOLOGY COMMENT NORMAL
--- NOTE | 2018-12-24 10:48 | NUR ---
FLEXISEAL D/C'D PER PATIENT REQUEST. SHE STATES IT WOULD DECREASE HER ANXIETY
[2018-12-24] MEDS: BALSAM PERU/CASTOR OIL 60 GM OINT...G. TP SCH (10:52)
--- NOTE | 2018-12-24 13:49 | NUR ---
ST Note: Spoke with Nela RN, re: pt's respiratory status and desires for pleasure feeds. Provided ed re: large bore trach, cuff inflation/deflation, and decreased success with PMV with large size trach. Per RN, pt on CPAP and may begin trach collar trials soon. If pt can tolerate trach collar for 6-8 hours she would be a good candidate for participation in a modified barium swallow study to objectively assess swallow safety, even if only for pleasure feeds.
--- NOTE | 2018-12-24 17:33 | NUR ---
WOUND CARE CONSULTATION- Follow Up Patient admitted from [facility] to ER for G-Tube placement- admitted for PNA, Debility and UTI. HX: ESRD, DM type2, Resp Failure, A-Fib, Dysphagia, G-Tube Placement, Depression, Anxiety, Hypothyroidism. ALLERGY: Sulfa Wound Care Follow Up for Sacral Stage II Pressure Ulcer Present On Admission. PATIENT VISIT: Phoenix Score 14 Moderate PUP Active Alternating Pressure Air Mattress. Patient able to turn without assist. Healed right gluteal area. Wound Assessment performed and documented. No drainage, no redness, no swelling, no tenderness to site. Bilateral Heels [place] and Intact. No Pressure Ulcers Identified to Cb. Heels. IMPRESSION: Right Sacro-Gluteal- Healing Stage II Pressure Ulcer, Present On Admission- Resolved. RECOMMENDATION: Continue Current Treatment Plan: 1. Right Sacro-Gluteal- Stage II Pressure Ulcer, Present on Admission: -Apply Venelex and Allevyn Sacrum Foam Dressing Daily 2. Continue Alternating Pressure Air Mattress 3. Turn and Reposition Every 2 Hours 4. Continue Bilateral Heel Protectors/ Offload Heels with Pillows while in bed. Addendum: 12/24/18 at 1736 by Jimi Bower RN Amended: Links added.
--- NOTE | 2018-12-24 18:52 | Progress Note ---
DATE: 12/24/2018 SUBJECTIVE: The patient has been on pressure support of 8 and CPAP of 5 for 6 to 7 hours today. She is tolerating this well with respiratory rate in the mid to high 20s. She has less diarrhea. She is awaiting possible transfer to SNF. PHYSICAL EXAMINATION: VITAL SIGNS: The patient is afebrile. The blood pressure is 130/60 and the pulse is 103. The respiratory rate is 26. HEENT: Shows no facial swelling or erythema. The oropharynx is normal. LYMPHATIC: Shows no submandibular, cervical, or supraclavicular adenopathy. CARDIAC: Reveals regular rate and rhythm with normal S1 and S2. LUNGS: Auscultation of lungs shows rhonchorous breath sounds bilaterally. There is no wheezing. ABDOMEN: Soft, nontender. There is no rebound or guarding. EXTREMITIES: Shows no leg edema or calf tenderness. There is no cyanosis or clubbing. SKIN: Shows no rashes. IMPRESSION: 1. Acute on chronic respiratory failure. 2. Tracheomalacia. 3. Moderate protein-calorie malnutrition. 4. End-stage renal disease. 5. Diabetes. 6. History of cerebrovascular accident. 7. Clostridium difficile colitis. PLAN: 1. Awaiting possible transfer to SNF. 2. Continue spontaneous breathing trials. 3. Dialysis. 4. Continue treatment for C difficile colitis. Jose Manuel Kc MD [facility] /[id number]
[2018-12-24] MEDS: INSULIN GLARGINE 100 UNITS/ML VIAL SQ SCH (20:44)
[2018-12-24] MEDS: QUETIAPINE FUMARATE 25 MG TAB PO SCH (21:32)
[2018-12-24] MEDS: TRAZODONE HCL 50 MG TAB PO PRN (21:33)
[2018-12-25] VITALS (22 sets, daily range): BP systolic 96–171; BP diastolic 49–93
[2018-12-25] MEDS: VANCOMYCIN 250MG/5ML ORAL SOLN PO SCH ×4 (00:14→16:14)
[2018-12-25] MEDS: INSULIN LISPRO 100 UNIT/1 ML 3ML VIAL SQ SCH ×4 (00:28→17:58)
[2018-12-25] MEDS: IPRATROPIUM BROMIDE 0.02% 2.5 ML NEB NEB SCH ×6 (02:50→23:00)
[2018-12-25] MEDS: ACETAMINOPHEN 325 MG/10 ML UDC NG PRN (05:41)
[2018-12-25] MEDS: TOBRAMYCIN 40MG/ML 30ML MDV INH SCH ×2 (07:24→19:45)
[2018-12-25] MEDS: MUPIROCIN 2% OINT 22 GM TUBE TOP SCH ×2 (09:00→16:14)
[2018-12-25] MEDS: METRONIDAZOLE 500MG/NS 100ML 100 ML IV SCH ×2 (09:06→16:13)
[2018-12-25] MEDS: ESCITALOPRAM OXALATE 10 MG TAB PO SCH (09:06)
[2018-12-25] MEDS: LORAZEPAM 0.5 MG TAB PO SCH ×2 (09:06→16:14)
[2018-12-25] MEDS: FUROSEMIDE INJ 10 MG/ML 4 ML VIAL IV SCH (09:06)
[2018-12-25] MEDS: BUPROPION HCL 100 MG TAB JT SCH ×2 (09:06→16:14)
[2018-12-25] MEDS: PANTOPRAZOLE 40 MG 10ML VIAL IV SCH (09:06)
[2018-12-25] MEDS: BALSAM PERU/CASTOR OIL 60 GM OINT...G. TP SCH (09:07)
--- NOTE | 2018-12-25 12:56 | NUR ---
FAXED PT NOTES TO [facility] FOR REVIEW FOR ACCEPTANCE TO FACILITY.
--- NOTE | 2018-12-25 17:08 | NUR ---
CM REC'D PHONE NELLIE FROM SAMY WITH JENNIFER SHE STATES THEY ARE REQUESTING PEER TO PEER FOR SNF AT [facility] REQUESTING PEER TO PEER BY 11:30 AM 12/26 (CURRENTLY 17:10 ON 12/25) CASE # [id number] PHONE [phone] OPTION [address] Ehsan PAYNE REGARDING ABOVE AWAIT CALL BACK TEXT TO DR Ehsan PAYNE INFORMATION PLACED ON FRONT OF CHART AND FAXED TO HIS OFFICE AT [phone] CONFIRMATION REC'D
--- NOTE | 2018-12-25 17:15 | Progress Note ---
DATE: 12/25/2018 Pulmonary Progress Note SUBJECTIVE: The patient is tolerating trach collar trial well. The patient is tolerating pressure support of 10, CPAP of 5 without difficulty. She is receiving dialysis. She has no fever. She has less diarrhea. PHYSICAL EXAMINATION: VITAL SIGNS: The patient is afebrile. The blood pressure is 171/73 and the pulse is 101. Respiratory rate is 21. HEENT: Shows no facial swelling or erythema. NECK: Tracheostomy site is clean. There is no drainage. CARDIAC: Reveals a regular rate and rhythm with a normal S1 and S2. There are no murmurs or rubs. LUNGS: Auscultation of lungs shows clear breath sounds bilaterally. There is no wheezing. ABDOMEN: Soft and nontender. There is no rebound or guarding. EXTREMITIES: Shows no leg edema or calf tenderness. There is no cyanosis or clubbing. SKIN: Shows no rashes. NEUROLOGIC: Shows the patient to be alert and oriented. IMPRESSION: 1. Acute on chronic respiratory failure. 2. Tracheomalacia. 3. Moderate protein-calorie malnutrition. 4. Prior cerebrovascular accident. 5. Clostridium difficile colitis. 6. Diabetes. PLAN: 1. Begin trach collar trials tomorrow. 2. Awaiting possible transfer to SNF. 3. Dialysis. 4. Physical therapy. 5. Continue treatment for C difficile colitis. Jose Manuel Kc MD [facility] /[id number]
[2018-12-25] MEDS: HALOPERIDOL LACTATE 5 MG/ML VIAL IM PRN (19:15)
[2018-12-25] MEDS: QUETIAPINE FUMARATE 25 MG TAB PO SCH (20:36)
[2018-12-25] MEDS: SIMETHICONE 80 MG CHEW JT PRN (20:37)
[2018-12-25] MEDS: TRAZODONE HCL 50 MG TAB PO PRN (20:37)
[2018-12-25] MEDS: INSULIN GLARGINE 100 UNITS/ML VIAL SQ SCH ×2 (20:40→21:40)
[2018-12-26] VITALS (26 sets, daily range): BP systolic 82–154; BP diastolic 45–77
[2018-12-26] MEDS: VANCOMYCIN 250MG/5ML ORAL SOLN PO SCH ×4 (00:29→18:08)
[2018-12-26] MEDS: METRONIDAZOLE 500MG/NS 100ML 100 ML IV SCH ×3 (00:29→18:08)
[2018-12-26] MEDS: INSULIN LISPRO 100 UNIT/1 ML 3ML VIAL SQ SCH ×4 (00:40→18:34)
[2018-12-26] MEDS: IPRATROPIUM BROMIDE 0.02% 2.5 ML NEB NEB SCH ×6 (03:00→23:00)
[2018-12-26 05:02] LABS: BASOPHILS # (AUTO) 0.2 (0.0-0.1); BASOPHILS % 1.2 % (0.0-1.0); EOSINOPHILS # (AUTO) 0.7 (0.0-0.4); EOSINOPHILS % 4.8 % (0.0-6.0); HEMATOCRIT 35.3 % (34.2-44.1); HEMOGLOBIN 10.6 g/dL (12.0-16.0); LYMPHOCYTES # (AUTO) 1.9 (1.0-3.2); LYMPHOCYTES % 12.7 % (18.0-39.1); MEAN CORPUSCULAR HEMOGLOBIN 26.7 pg (28-32); MEAN CORPUSCULAR VOLUME 88.9 fL (81-99); MONOCYTES # (AUTO) 1.8 (0.2-0.8); MONOCYTES % 11.9 % (4.4-11.3); NEUTROPHILS # (AUTO) 9.7 (2.1-6.9); NEUTROPHILS % 65.6 % (38.7-80.0); PLATELET COUNT 482 x10e3/uL (140-360); RED BLOOD COUNT 3.97 x10e6/uL (3.6-5.1); RED CELL DISTRIBUTION WIDTH 21.2 % (11.7-14.4)
[2018-12-26 05:21] LABS: ANION GAP 13.5 mmol/L (8-16); CALCIUM 10.7 mg/dL (8.4-10.2); CREATININE, SERUM 2.05 mg/dL (0.57-1.11); POTASSIUM 3.5 mmol/L (3.5-5.1)
[2018-12-26] MEDS: TOBRAMYCIN 40MG/ML 30ML MDV INH SCH ×2 (07:38→19:30)
[2018-12-26 07:45] LABS: EOSINOPHILS % (MANUAL) 9 % (0-7); LYMPHOCYTES % (MANUAL) 8 % (19-48); METAMYELOCYTES % (MANUAL) 1 % (0-0); MONOCYTES % (MANUAL) 14 % (3.4-9.0); NEUTROPHILS % (MANUAL) 65 % (40-74)
--- NOTE | 2018-12-26 08:30 | NUR ---
pt placed on trach collar by RT at this time. will continue to monitor.
[2018-12-26] MEDS: LORAZEPAM 0.5 MG TAB PO SCH ×2 (09:37→18:08)
[2018-12-26] MEDS: ESCITALOPRAM OXALATE 10 MG TAB PO SCH (09:37)
[2018-12-26] MEDS: BUPROPION HCL 100 MG TAB JT SCH ×2 (09:37→18:08)
[2018-12-26] MEDS: BALSAM PERU/CASTOR OIL 60 GM OINT...G. TP SCH (09:37)
[2018-12-26] MEDS: FUROSEMIDE INJ 10 MG/ML 4 ML VIAL IV SCH (09:37)
[2018-12-26] MEDS: PANTOPRAZOLE 40 MG 10ML VIAL IV SCH (09:37)
[2018-12-26] MEDS: MUPIROCIN 2% OINT 22 GM TUBE TOP SCH ×2 (10:09→18:08)
[2018-12-26] MEDS ORDERED: POTASSIUM CHLORIDE 20 MEQ TAB CR PO NR (10:30)
--- NOTE | 2018-12-26 10:59 | Progress Note ---
DATE: 12/26/2018 Pulmonary Critical Care Progress Note SUBJECTIVE: The patient was placed on a trach collar last night and tolerated it for about an hour. She is now back on SIMV. There are no fevers. There are no new complaints. PHYSICAL EXAMINATION: VITAL SIGNS: Blood pressure is 135/76 and saturation is 100% on FiO2 of 0.4. HEENT: Shows no facial swelling or erythema. The nasal mucosa is normal. The patient has a tracheostomy in place. CARDIAC: Reveals regular rate and rhythm with a normal S1 and S2. There are no murmurs or rubs. LUNGS: Auscultation of lungs shows rhonchi bilaterally. ABDOMEN: Soft, nontender. There is no rebound or guarding. EXTREMITIES: Shows no leg edema or calf tenderness. There is no cyanosis or clubbing. LABORATORY DATA: White blood cell count is 14.7 and hemoglobin is 10.6. The platelet count is 482 and the BUN to creatinine ratio is 34 to 2.05. Sodium is 132. RADIOGRAPHIC DATA: Chest x-ray shows mild interstitial edema. IMPRESSION: 1. Acute on chronic respiratory failure. 2. Tracheomalacia. 3. Clostridium difficile colitis. 4. Prior cerebrovascular accident. 5. Diabetes. PLAN: 1. The patient will be on a trach collar trial again as tolerated for 1 hour. 2. We are actively weaning the patient and she would be appropriate for a continued care in LTAC or a alf facility with cyber security manager capability. 3. Continue treatment for C difficile. 4. Continue to monitor blood sugars. 5. Continue physical therapy. MD CRISTO Vasquez/[facility] /[id number]
--- NOTE | 2018-12-26 13:30 | NUR ---
CANDIDO SPOKE WITH DR PAYNE HE STATES HE LEFT A VOICE MAIL AT 11:05 TODAY ON THE PEER TO PEER LINE AND WAITING FOR RETURN CALL
--- NOTE | 2018-12-26 15:54 | NUR ---
WAS NOTIFIED THAT PT DENIED BY INSURANCE, NOTIFIED
--- NOTE | 2018-12-26 17:15 | NUR ---
CANDIDO SPOKE WITH Ehsan PAYNE HE STATES PEER TO PEER PHYSICIAN TOLD HIM THAT PT NEEDS A LOWER LEVEL OF CARE AND THAT SHE WAS NOT PARTICIPATING IN P.T. AT [facility] CANDIDO SPOKE WITH PT'S AND NOTIFIED HIM OF DENIAL ENCOURAGED HIM TO CALL CUSTOMER SERVICE NUMBER FOR [employer] TO APPEAL THE DENIAL; HE AGREED TO ALSO ASKED HIM TO BE AT THE HOSPITAL TOMORROW BY 10AM FOR CONFERENCE WITH DR Ehsan PAYNE, [place] AND MYSELF TO DISCUSS OPTIONS FOR DC; HE AGREED
[2018-12-26] MEDS: QUETIAPINE FUMARATE 25 MG TAB PO SCH (21:40)
[2018-12-26] MEDS: GUAIFENESIN 200 MG/10 ML UDC JT PRN (21:42)
[2018-12-26] MEDS: TRAZODONE HCL 50 MG TAB PO PRN (21:42)
[2018-12-26] MEDS: SIMETHICONE 80 MG CHEW JT PRN (21:42)
[2018-12-27] VITALS (16 sets, daily range): BP systolic 105–151; BP diastolic 47–70
[2018-12-27] MEDS: VANCOMYCIN 250MG/5ML ORAL SOLN PO SCH ×3 (01:13→12:46)
[2018-12-27] MEDS: INSULIN LISPRO 100 UNIT/1 ML 3ML VIAL SQ SCH ×3 (01:14→12:00)
[2018-12-27] MEDS: METRONIDAZOLE 500MG/NS 100ML 100 ML IV SCH ×2 (01:19→09:29)
[2018-12-27] MEDS: IPRATROPIUM BROMIDE 0.02% 2.5 ML NEB NEB SCH ×4 (03:00→15:15)
[2018-12-27] MEDS: ALBUTEROL SULF 0.083% NEB SOLN 3 ML NEB NEB PRN ×3 (07:28→15:15)
[2018-12-27] MEDS: TOBRAMYCIN 40MG/ML 30ML MDV INH SCH (07:48)
[2018-12-27 09:05] LABS: BASOPHILS # (AUTO) 0.1 (0.0-0.1); EOSINOPHILS # (AUTO) 0.9 (0.0-0.4); EOSINOPHILS % 6.5 % (0.0-6.0); HEMATOCRIT 32.2 % (34.2-44.1); HEMOGLOBIN 9.8 g/dL (12.0-16.0); LYMPHOCYTES # (AUTO) 1.9 (1.0-3.2); LYMPHOCYTES % 13.4 % (18.0-39.1); MEAN CORPUSCULAR HEMOGLOBIN 26.9 pg (28-32); MEAN CORPUSCULAR HGB CONC 30.4 g/dL (31-35); MEAN CORPUSCULAR VOLUME 88.5 fL (81-99); MONOCYTES # (AUTO) 1.5 (0.2-0.8); MONOCYTES % 10.6 % (4.4-11.3); NEUTROPHILS # (AUTO) 9.3 (2.1-6.9); NEUTROPHILS % 66.2 % (38.7-80.0); PLATELET COUNT 452 x10e3/uL (140-360); RED BLOOD COUNT 3.64 x10e6/uL (3.6-5.1); RED CELL DISTRIBUTION WIDTH 21.2 % (11.7-14.4)
[2018-12-27 09:20] LABS: ANION GAP 14.5 mmol/L (8-16); CALCIUM 10.8 mg/dL (8.4-10.2); CREATININE, SERUM 2.22 mg/dL (0.57-1.11); POTASSIUM 3.5 mmol/L (3.5-5.1)
[2018-12-27] MEDS: BUPROPION HCL 100 MG TAB JT SCH (09:29)
[2018-12-27] MEDS: FUROSEMIDE INJ 10 MG/ML 4 ML VIAL IV SCH (09:29)
[2018-12-27] MEDS: ESCITALOPRAM OXALATE 10 MG TAB PO SCH (09:29)
[2018-12-27] MEDS: LORAZEPAM 0.5 MG TAB PO SCH (09:29)
[2018-12-27] MEDS: PANTOPRAZOLE 40 MG 10ML VIAL IV SCH (09:29)
[2018-12-27] MEDS: MUPIROCIN 2% OINT 22 GM TUBE TOP SCH (09:29)
[2018-12-27] MEDS: BALSAM PERU/CASTOR OIL 60 GM OINT...G. TP SCH (09:29)
--- NOTE | 2018-12-27 10:22 | NUR ---
MEETING TODAY WITH PT'S , DR PAYNE, PAULO CARDIOLOGIST AND MYSELF RE: DC BATES [facility] IF NOT ACCEPTED WILL LOOK FOR OTHER [facility] FACILITIES
[2018-12-27 11:00] LABS: EOSINOPHILS % (MANUAL) 6 % (0-7); LYMPHOCYTES % (MANUAL) 17 % (19-48); MONOCYTES % (MANUAL) 11 % (3.4-9.0); NEUTROPHILS % (MANUAL) 66 % (40-74)
--- NOTE | 2018-12-27 13:33 | NUR ---
SPOKE WITH [facility] AT [facility] PT IS TO BE ACCEPTED BACK TO FACILITY INTO ROOM [address] ELMER BERRY. FILLED OUT RTF AND POST DISCHARGE POST CARE FORM AND FILED IN CHART.
--- NOTE | 2018-12-27 14:29 | NUR ---
REPORT CALLED TO MAYDA SMITH AT [facility]. PATIENT WILL BE GOING TO ROOM 506. DIALYSIS COMPLETED NOW AND 2.3 LITERS TAKEN OFF AND TOLERATED WELL. V/S ARE STABLE: 119/61; P-105; RR-24; AND 02 SATS ARE 97% ON 30% TRACHE COLLAR. AT BEDSIDE.
--- NOTE | 2018-12-27 14:44 | NUR ---
[facility] CALLED AND I SPOKE TO CATHERINE TO REQUEST THEIR SERVICES TO TRANSPORT PATIENT TO [facility]). INFORMATION GIVEN TO HER REGARDING PATIENT BEING ON 30% TRACHE COLLAR AND ON ISOLATION PRECAUTIONS FOR C. DIFF AND PSEUDOMONAS OF SPUTUM. NO ESTIMATED TIME OF ARRIVAL GIVEN.
--- NOTE | 2018-12-27 19:46 | Progress Note ---
DATE: 12/27/2018 Pulmonary Critical Care Progress Note SUBJECTIVE: The patient has been on trach collar since yesterday and seemed to be tolerating it well. Case Management has made arrangements for her to go back to the [facility]. OBJECTIVE: VITAL SIGNS: The patient is afebrile. Blood pressure is 145/62 and pulse is 99. Respiratory rate is 18. HEENT: Shows no facial swelling or erythema. Trach collar site looks clean. There is no drainage. CARDIAC: Reveals regular rate and rhythm with normal S1 and S2. There are no murmurs or rubs. LUNGS: Auscultation of lungs shows clear breath sounds bilaterally. There is no wheezing. ABDOMEN: Soft, nontender. There is no rebound or guarding. EXTREMITIES: Shows no leg edema or calf tenderness. There is no cyanosis or clubbing. SKIN: Shows no rashes. IMPRESSION: 1. Muzmn-[id number]-tesdsoy respiratory failure. 2. Tracheomalacia. 3. Clostridium difficile colitis. 4. Prior cerebrovascular accident. 5. Diabetes. PLAN: 1. Continue trach collar as tolerated with ventilator for backup. 2. Continue physical therapy. 3. Continue to monitor blood sugars. 4. Complete treatment for C difficile colitis. Jose Manuel Kc MD [facility] /[id number]
== END 2018-12-27 17:35 | DRG 853 ==
LOC: ER 17:29 → ERHOLD 19:50 → ICU 21:00
PROC: 5A1D70Z Performance of Urinary Filtration, Intermittent, Less than 6 Hours Per Day (ICD-10-PCS; 2018-12-14)
PROC: 30243N1 Transfusion of Nonautologous Red Blood Cells into Central Vein, Percutaneous Approach (ICD-10-PCS; 2018-12-14)
PROC: 0DPD3UZ Removal of Feeding Device from Lower Intestinal Tract, Percutaneous Approach (ICD-10-PCS; 2018-12-15)
PROC: 0DHA3UZ Insertion of Feeding Device into Jejunum, Percutaneous Approach (ICD-10-PCS; 2018-12-15)
PROC: 5A1D70Z Performance of Urinary Filtration, Intermittent, Less than 6 Hours Per Day (ICD-10-PCS; 2018-12-16)
PROC: 5A1955Z Respiratory Ventilation, Greater than 96 Consecutive Hours (ICD-10-PCS; 2018-12-17)
PROC: 0B9J8ZX Drainage of Left Lower Lung Lobe, Via Natural or Artificial Opening Endoscopic, Diagnostic (ICD-10-PCS; 2018-12-17)
PROC: 0B9F8ZX Drainage of Right Lower Lung Lobe, Via Natural or Artificial Opening Endoscopic, Diagnostic (ICD-10-PCS; 2018-12-17)
PROC: 0B918ZZ Drainage of Trachea, Via Natural or Artificial Opening Endoscopic (ICD-10-PCS; principal; 2018-12-17 10:18)
PROC: 5A1D70Z Performance of Urinary Filtration, Intermittent, Less than 6 Hours Per Day (ICD-10-PCS; 2018-12-18)
PROC: 5A1D70Z Performance of Urinary Filtration, Intermittent, Less than 6 Hours Per Day (ICD-10-PCS; 2018-12-20)
PROC: 5A1D70Z Performance of Urinary Filtration, Intermittent, Less than 6 Hours Per Day (ICD-10-PCS; 2018-12-23)
PROC: 5A1D70Z Performance of Urinary Filtration, Intermittent, Less than 6 Hours Per Day (ICD-10-PCS; 2018-12-25)
PROC: 5A1D70Z Performance of Urinary Filtration, Intermittent, Less than 6 Hours Per Day (ICD-10-PCS; 2018-12-27)
DX: A41.50 Gram-negative sepsis, unspecified (principal); N18.6 End stage renal disease; J15.6 Pneumonia due to other Gram-negative bacteria; J96.20 Acute and chronic respiratory failure, unspecified whether with hypoxia or hypercapnia; I13.2 Hypertensive heart and chronic kidney disease with heart failure and with stage 5 chronic kidney disease, or end stage renal disease; J96.10 Chronic respiratory failure, unspecified whether with hypoxia or hypercapnia; N39.0 Urinary tract infection, site not specified; F33.1 Major depressive disorder, recurrent, moderate; N17.9 Acute kidney failure, unspecified; I69.351 Hemiplegia and hemiparesis following cerebral infarction affecting right dominant side; Z43.1 Encounter for attention to gastrostomy; E11.22 Type 2 diabetes mellitus with diabetic chronic kidney disease; I50.9 Heart failure, unspecified; Z99.2 Dependence on renal dialysis; Z79.4 Long term (current) use of insulin; F41.9 Anxiety disorder, unspecified; E03.9 Hypothyroidism, unspecified; Z88.0 Allergy status to penicillin; Z74.01 Bed confinement status; Y95 Nosocomial condition; G47.33 Obstructive sleep apnea (adult) (pediatric); E66.9 Obesity, unspecified; Z68.23 Body mass index [BMI] 23.0-23.9, adult; J39.8 Other specified diseases of upper respiratory tract; Z99.81 Dependence on supplemental oxygen; D63.1 Anemia in chronic kidney disease; E87.5 Hyperkalemia; Z98.84 Bariatric surgery status
CPT/HCPCS: 36415; 43752; 49451; 71045; 71250; 74018; 74176; 74470; 80048; 80053; 81001; 82330; 82550; 82553; 82948; 83518; 83605; 83735; 83880; 83970; 84100; 84165; 84484; 85025; 85610; 85730; 86677; 86704; 86705; 86706; 86707; 86708; 86850; 86900; 86920; 87040; 87070; 87086; 87186; 87205; 87335; 87340; 87350; 87400; 87493; 93005; 94002; 94003; 94640; 96372; 97139; 99285; C1769; J1630; J1644; J1815; J1940; J2001; J2250; J2405; J3260; J3370; J7030; J7040; J7050; P9016; Q4081

== ENCOUNTER → 2018-12-13 | Day surgery (SDC) | payer MEDICARE, OTHER ==
[2018-12-13] VITALS (7 sets, daily range): BP systolic 122–157; BP diastolic 66–75
[~2018-12-13] MED LIST: ACETAMINOPHEN325 M1 JT; ACETYLCYST100 MG/1 M INH; ACIDOPHILUS1 EAC4 JT; BACLOFEN10 MG JT; BRIMONIDINE TART5 ML OP; BUPROPION HCL100 MG JT; COLACE100 MG/10 JT; EFFER-K 20 MEQ20 MEQ JT; ENULOSE10 GM/15 M JT; FAMOTIDINE20 MG JT; FUROSEMIDE40 MG JT; GABAPENTIN100 MG JT; GUAIFENESI100 MG/5 M JT; HUMALOG100 UNIT/3 SQ; IPRAT-ALBUT 0.5-3 ML INH; KLONOPIN1 MG JT; LANTUS 3ML100 UNITS/ SC; LATANOPROST2.5 ML OP; LEXAPRO10 MG JT; LIOTHYRONINE SO5 MCG JT; LOPERAMIDE1 MG/5 ML JT; MEGESTROL400 MG/10 JT; MIRALAX17 GM JT; NEPHRO-VITE TABL1 EA JT; NORCO 10-325 T1 EACH JT; POLYETHYLENE GL17 GM JT; SEROQUEL100 MG JT; SYNTHROID125 MCG JT; THIAMINE HCL JT; ZINC OXIDE56.7 GM TOP; ZOFRAN4 MG PO; ZOFRAN4 MG/5 ML JT
--- NOTE | 2018-12-13 14:50 | NUR ---
1450pm Received pt from ED to direct OPT admit to slab tripper room #10. Identiferx2. Here for j-tube replacement. DR. Bartholomew radiologist . Notified [facility] IR and [facility] aware pt received through ED on portable vent. Called [facility] for Report from Bedside nurse. Received phone update from Rajesh OHARA and hortencia fax will send chart history,orders and current labs or imaging. Recieved papers. Consented pt with x2 RN and phone Enoch due to pt inability to sign. Pt is diaphoretic,anxious in sinus tach. Very congested requiring mutiple suctioning via RT at Bedside. Left jtube in place dressing intact. Rt permacath dressing intact and line available for emergent use. Transfer to bed side rails up ,brake locked. Proceed with face to face hand off to Horacio sapp/rn
--- NOTE | 2018-12-13 14:52 | NUR ---
1452pm RT her orders were obtained and vent settings MD ok (Dr Wallace) with 35 to 60% FIO2.TV 500, Peep5 Resp rate set 14. Pt rate in 30's. Reassurance and comfort measures given to pt. Consented for [id number] with ) Stat CXR done and Bullet Casting Operator consulted. Dr Bartholomew here and was on agreement to procedure with case. Local anesthesia to be used .Leno Deshpande RN Cath Procedural RN on case.ds/rn 1530pm Pt transferred to labor relations officer stable vs and procedure achieved completion and return back to labor relations officer hold #10. Pt Hr 100 14R on vent 125/68 97% sast Left j tube site w/o drainage. Pt at baseline less anxious Denies necessity to defecate or urinate. POC was changed not to dc and transfer to [facility] will transfer to ED for further evaluation.All Md and Supervision with multiple dept aware. Notified per phone and [facility] clinical staff pharmacist of transfer to ED for further evaluation. Stable VS at this time and procedure was completed successfully w/o complications and ok to usj tube as necessary.
--- OUTSIDE RECORDS SUMMARY | 2018-12-13 16:50 | XMS REPORT ---
Author Author Tra Cox Organization [facility] Address [address] [place], [place] [id number] Care Team Providers Care Chrome Tanning Drum Operator Name Role Phone Tra Cox PP Allergies and Adverse Reactions Name Reaction Notes Bactrim Bactrim DS History of Medication Use Active Name Start Date Estimated Completion Date SIG Comments amlodipine 10 mg oral tablet take 1 tablet (10 mg) by oral route once daily brimonidine 0.15 % ophthalmic (eye) drops clonidine 0.1 mg/24 hr transdermal patch weekly hydrochlorothiazide 25 mg oral tablet take 1 tablet (25 mg) by oral route once daily Synthroid 88 mcg oral tablet Problem List Not available. Results Summary Not available.
--- OUTSIDE RECORDS SUMMARY | 2018-12-13 16:50 | XMS REPORT ---
Author Author Tra Cox Organization [facility] Address [address] [place], [place] [id number] Care Team Providers Care Electrical Accessories Assembler Name Role Phone Tra Cox PP Allergies [...]
--- OUTSIDE RECORDS SUMMARY | 2018-12-13 16:50 | XMS REPORT ---
Author Author [facility] Address Unknown Phone Unavailable Care Team Providers Care Judge Clerk Name Role Phone Kenzie Cox Unavailable Unavailable Problems This patient has no known problems. Allergies, Adverse Reactions, Alerts This patient has no known allergies or adverse reactions. Medications This patient has no known medications. Encounters Start Date/Time End Date/Time Encounter Type Admission Type Attending Clinicians Care Facility Care Department Encounter ID 2018-06-13 08:56:00 2018-06-13 08:56:00 Outpatient Tra Cox [id number]
--- NOTE | 2018-12-13 17:30 | NUR ---
1730pm Pt had j-tube replacement w/o complications ok to use tube per Dr [place] CLEARY. Notified and pt of POC and [facility] RN Esau that further ED evaluation will be done. Vs stable on vent with RT transport to ED 99% sat HR 100. Report to ED head nurse face to face on handoff. Leno Deshpande RN gave initial report to ED staff. Dir. [facility] services and Jocelyn Perioperative Dir. aware of transfer and hold of opt DC as well as procedural MD Dr Bartholomew per radiology services. Left j tube dressing dry and intact w/o bleeding. Rt PermCath in place to rt sc for emergency use iv.Chart from OPT services handed off to ED staff. Pt was able to verbalize understanding of admission to ED left in occupancy of ED staff .Transfer was made by stretcher on zoll and O2 and RT service bagging pt. Will reconnect to ventilator. Has no overt distress. Temp 98.7(T) Juana Rn(poultry hatchery laborer).
== END | disposition home or self-care (01) ==
LOC: CATH LAB 16:14
DX: Z43.4 Encounter for attention to other artificial openings of digestive tract (principal)